=== PATIENT | male | born 1950 | race Caucasian/White ===

== ENCOUNTER → 2016-08-15 | Outpatient (CLI) | payer OTHER ==
[~2016-08-15] MED LIST: ACHD5005; ALPR0.5T7; AML5T; AMLO5TAB2 PO; ATEN50TA PO; ATOR10TA66 PO; ATOR40TA; BACL10TA PO; HYDR-3812 PO; HYDR-3820 PO; IBUPROFEN; LISI-552 PO; MELO15TA39 PO; MELO7.5T; MULT1TAB63; OLME20TA5; OXYC-465; OXYC-465 PO; TRAM50TA2 PO
--- OUTSIDE RECORDS SUMMARY | 2016-08-15 09:59 | XMS REPORT | Continuity of Care Document ---
Author Author [facility] Organization [facility] Address Unknown Phone Unavailable Allergies Active Description Code Type Severity Reaction Onset Reported/Identified Relationship to Patient Clinical Status Yes celecoxib [id number] Drug Allergy Unknown N/A 2006 Medications Problems Date Dx Coded Attending Type Code Diagnosis Diagnosed By 04/19/2010 Ot 562.10 04/19/2010 Ot 569.49 04/19/2010 Ot V10.46 04/19/2010 Ot V45.89 09/16/2014 Ot 185 09/16/2014 Ot 255.9 09/16/2014 Ot 599.70 09/16/2014 Ot 791.9 09/16/2014 Ot V81.5 09/16/2014 Ot 239.4 09/16/2014 Ot V72.83 09/16/2014 Ot 599.70 09/16/2014 Ot 599.70 09/16/2014 Ot 599.84 09/16/2014 Ot 682.1 09/16/2014 Ot 188.9 09/16/2014 Ot 188.9 09/20/2014 Ot 185 09/20/2014 Ot 255.9 09/20/2014 Ot 599.70 09/20/2014 Ot 791.9 09/20/2014 Ot V81.5 09/20/2014 Ot 239.4 09/20/2014 Ot V72.83 09/20/2014 Ot 599.70 09/20/2014 Ot 599.70 09/20/2014 Ot 599.84 09/20/2014 Ot 682.1 09/20/2014 Ot 188.9 09/20/2014 Ot 188.9 03/17/2015 Ot 599.70 03/17/2015 Ot 599.70 03/17/2015 Ot 599.84 03/17/2015 Ot 682.1 03/17/2015 Ot 188.9 03/17/2015 Ot 188.9 10/11/2015 Ot 188.9 MALIG IRVIN BLADDER NOS 10/11/2015 Ot 188.9 MALIG IRVIN BLADDER NOS 10/17/2015 BREN GASPAR, ABIGAIL Carrillo Ot 724.2 LUMBAGO 10/17/2015 ABIGAIL CORREIA MD Ot 729.2 NEURALGIA/NEURITIS NOS 10/17/2015 ABIGAIL CORREIA MD Ot V72.84 EXAM PRE-OPERATIVE NOS 10/20/2015 ABIGAIL CORREIA MD Ot 724.2 LUMBAGO 10/20/2015 ABIGAIL CORREIA MD Ot 729.2 NEURALGIA/NEURITIS NOS 10/20/2015 ABIGAIL CORREIA MD Ot V72.84 EXAM PRE-OPERATIVE NOS 10/20/2015 BLAYNE PANDEY MD Ot M47.816 SPONDYLOSIS W/O MYELOPATHY OR RADICULOPA 10/20/2015 BLAYNE PANDEY MD Ot M51.36 OTHER INTERVERTEBRAL DISC DEGENERATION, 10/20/2015 BLAYNE PANDEY MD Ot Z98.1 ARTHRODESIS STATUS 10/20/2015 BLAYNE PANDEY MD Ot M53.3 SACROCOCCYGEAL DISORDERS, NOT ELSEWHERE 10/20/2015 BLAYNE PANDEY MD Ot M96.1 POSTLAMINECTOMY SYNDROME, NOT ELSEWHERE 10/20/2015 BLAYNE PANDEY MD Ot Z79.899 OTHER PENITENTIARY (CURRENT) DRUG THERAPY 10/29/2015 LANA AJ APRN Ot M48.06 SPINAL STENOSIS, LUMBAR REGION 10/29/2015 LANA AJ APRN Ot S32.029A UNSP FRACTURE OF SECOND LUMBAR VERTEBRA , 10/29/2015 LANA AJ APRN Ot W19.XXXA UNSPECIFIED FALL, INITIAL ENCOUNTER 10/29/2015 LANA AJ APRN Ot Y99.8 OTHER EXTERNAL CAUSE STATUS 10/30/2015 LANA AJ APRN Ot M48.06 SPINAL STENOSIS, LUMBAR REGION 10/30/2015 LANA AJ APRN Ot S32.029A UNSP FRACTURE OF SECOND LUMBAR VERTEBRA , 10/30/2015 LANA AJ APRN Ot W19.XXXA UNSPECIFIED FALL, INITIAL ENCOUNTER 10/30/2015 LANA AJ APRN Ot Y99.8 OTHER EXTERNAL CAUSE STATUS 11/01/2015 BLAYNE PANDEY MD Ot M53.3 SACROCOCCYGEAL DISORDERS, NOT ELSEWHERE 11/01/2015 BLAYNE PANDEY MD Ot M96.1 POSTLAMINECTOMY SYNDROME, NOT ELSEWHERE 11/01/2015 BLAYNE PANDEY MD, Ot Z79.899 OTHER CONTAINER PACKER OPERATOR (CURRENT) DRUG THERAPY 11/07/2015 ABIGAIL CORREIA MD Ot 724.2 LUMBAGO 11/07/2015 ABIGAIL CORREIA MD Ot 729.2 NEURALGIA/NEURITIS NOS 11/07/2015 ABIGAIL CORREIA MD Ot V72.84 EXAM PRE-OPERATIVE NOS 11/07/2015 BLAYNE PANDEY MD Ot M47.816 SPONDYLOSIS W/O MYELOPATHY OR RADICULOPA 11/07/2015 BLAYNE PANDEY MD Ot M51.36 OTHER INTERVERTEBRAL DISC DEGENERATION, 11/07/2015 BLAYNE PANDEY MD, Ot Z98.1 ARTHRODESIS STATUS 11/08/2015 AMBERLY PEACE MD Ot D72.829 ELEVATED WHITE BLOOD CELL COUNT, UNSPECI 11/08/2015 AMBERLY PEACE MD Ot Z79.2 PENITENTIARY (CURRENT) USE OF ANTIBIOTICS 11/14/2015 ABIGAIL CORREIA MD Ot 724.2 LUMBAGO 11/14/2015 ABIGAIL CORREIA MD Ot 729.2 NEURALGIA/NEURITIS NOS 11/14/2015 ABIGAIL CORREIA MD Ot V72.84 EXAM PRE-OPERATIVE NOS 11/14/2015 BLAYNE PANDEY MD, Ot M47.816 SPONDYLOSIS W/O MYELOPATHY OR RADICULOPA 11/14/2015 BLAYNE PANDEY MD Ot M51.36 OTHER INTERVERTEBRAL DISC DEGENERATION, 11/14/2015 BLAYNE PANDEY MD Ot Z98.1 ARTHRODESIS STATUS 11/14/2015 AMBERLY PEACE MD Ot D72.829 ELEVATED WHITE BLOOD CELL COUNT, UNSPECI 11/14/2015 AMBERLY PEACE MD Ot Z79.2 PENITENTIARY (CURRENT) USE OF ANTIBIOTICS 11/22/2015 AMBERLY PEACE MD Ot D72.818 OTHER DECREASED WHITE BLOOD CELL COUNT 11/22/2015 AMBERLY PEACE MD Ot Z79.2 PENITENTIARY (CURRENT) USE OF ANTIBIOTICS 12/01/2015 AMBERLY PEACE MD Ot D72.818 OTHER DECREASED WHITE BLOOD CELL COUNT 12/01/2015 PEACE MD, AMBERLY A Ot Z79.2 CONTAINER PACKER OPERATOR (CURRENT) USE OF ANTIBIOTICS 12/06/2015 AMBERLY PEACE MD A Ot D72.818 OTHER DECREASED WHITE BLOOD CELL COUNT 12/06/2015 AMBERLY PEACE MD A Ot Z79.2 PENITENTIARY (CURRENT) USE OF ANTIBIOTICS 12/20/2015 AMBERLY PEACE MD A Ot D72.818 OTHER DECREASED WHITE BLOOD CELL COUNT 12/20/2015 AMBERLY PEACE MD A Ot Z79.2 PENITENTIARY (CURRENT) USE OF ANTIBIOTICS 12/21/2015 LEDA PEACE MD Ot D72.818 OTHER DECREASED WHITE BLOOD CELL COUNT 12/21/2015 LEDA PEACE MD Ot Z79.2 CONTAINER PACKER OPERATOR (CURRENT) USE OF ANTIBIOTICS 12/24/2015 AMBERLY PEACE MD A Ot D72.818 OTHER DECREASED WHITE BLOOD CELL COUNT 12/24/2015 AMBERLY PEACE MD A Ot Z79.2 PENITENTIARY (CURRENT) USE OF ANTIBIOTICS 12/26/2015 AMBERLY PEACE MD Ot D72.818 OTHER DECREASED WHITE BLOOD CELL COUNT 12/26/2015 AMBERLY PEACE MD A Ot Z79.2 PENITENTIARY (CURRENT) USE OF ANTIBIOTICS 01/02/2016 AMBERLY PEACE MD A Ot D72.818 OTHER DECREASED WHITE BLOOD CELL COUNT 01/02/2016 AMBERLY PEACE MD A Ot Z79.2 CONTAINER PACKER OPERATOR (CURRENT) USE OF ANTIBIOTICS 01/22/2016 ABIGAIL CORREIA MD Ot 724.2 LUMBAGO 01/22/2016 ABIGAIL CORREIA MD Ot 729.2 NEURALGIA/NEURITIS NOS 01/22/2016 ABIGAIL CORREIA MD Ot V72.84 EXAM PRE-OPERATIVE NOS 01/22/2016 BLAYNE PANDEY MD Ot M47.816 SPONDYLOSIS W/O MYELOPATHY OR RADICULOPA 01/22/2016 BLAYNE PANDEY MD Ot M51.36 OTHER INTERVERTEBRAL DISC DEGENERATION, 01/22/2016 BLAYNE PANDEY MD Ot Z98.1 ARTHRODESIS STATUS 01/22/2016 AMBERLY PEACE MD A Ot D72.829 ELEVATED WHITE BLOOD CELL COUNT, UNSPECI 01/22/2016 AMBERLY PEACE MD A Ot Z79.2 CONTAINER PACKER OPERATOR (CURRENT) USE OF ANTIBIOTICS 01/22/2016 AMBERLY PEACE MD A Ot D72.818 OTHER DECREASED WHITE BLOOD CELL COUNT 01/22/2016 AMBERLY PEACE MD A Ot Z79.2 CONTAINER PACKER OPERATOR (CURRENT) USE OF ANTIBIOTICS 01/22/2016 AMBERLY PEACE MD A Ot D72.818 OTHER DECREASED WHITE BLOOD CELL COUNT 01/22/2016 AMBERLY PEACE MD A Ot Z79.2 PENITENTIARY (CURRENT) USE OF ANTIBIOTICS 01/22/2016 AMBERLY PEACE MD A Ot D72.818 OTHER DECREASED WHITE BLOOD CELL COUNT 01/22/2016 AMBERLY PEACE MD A Ot Z79.2 CONTAINER PACKER OPERATOR (CURRENT) USE OF ANTIBIOTICS 01/22/2016 AMBERLY PEACE MD A Ot D72.818 OTHER DECREASED WHITE BLOOD CELL COUNT 01/22/2016 AMBERLY PEACE MD A Ot Z79.2 CONTAINER PACKER OPERATOR (CURRENT) USE OF ANTIBIOTICS 01/22/2016 LEDA PEACE MD Ot D72.818 OTHER DECREASED WHITE BLOOD CELL COUNT 01/22/2016 LEDA PEACE MD Ot Z79.2 CONTAINER PACKER OPERATOR (CURRENT) USE OF ANTIBIOTICS 01/22/2016 AMBERLY PEACE MD A Ot D72.818 OTHER DECREASED WHITE BLOOD CELL COUNT 01/22/2016 AMBERLY PEACE MD Ot Z79.2 PENITENTIARY (CURRENT) USE OF ANTIBIOTICS 01/22/2016 AMBERLY PEACE MD A Ot D72.818 OTHER DECREASED WHITE BLOOD CELL COUNT 01/22/2016 AMBERLY PEACE MD A Ot Z79.2 PENITENTIARY (CURRENT) USE OF ANTIBIOTICS 01/22/2016 AMBERLY PEACE MD A Ot D72.818 OTHER DECREASED WHITE BLOOD CELL COUNT 01/22/2016 AMBERLY PEACE MD A Ot Z79.2 CONTAINER PACKER OPERATOR (CURRENT) USE OF ANTIBIOTICS 01/22/2016 ABIGAIL CORREIA MD Ot 724.2 LUMBAGO 01/22/2016 ABIGAIL CORREIA MD Ot 729.2 NEURALGIA/NEURITIS NOS 01/22/2016 ABIGAIL CORREIA MD Ot V72.84 EXAM PRE-OPERATIVE NOS 01/22/2016 BLAYNE PANDEY MD Ot M47.816 SPONDYLOSIS W/O MYELOPATHY OR RADICULOPA 01/22/2016 BLAYNE PANDEY MD Ot M51.36 OTHER INTERVERTEBRAL DISC DEGENERATION, 01/22/2016 BLAYNE PANDEY MD Ot Z98.1 ARTHRODESIS STATUS 01/22/2016 NATA GASPAR, AMBERLY A Ot D72.829 ELEVATED WHITE BLOOD CELL COUNT, UNSPECI 01/22/2016 AMBERLY PEACE MD A Ot Z79.2 CONTAINER PACKER OPERATOR (CURRENT) USE OF ANTIBIOTICS 01/22/2016 AMBERLY PEACE MD A Ot D72.818 OTHER DECREASED WHITE BLOOD CELL COUNT 01/22/2016 AMBERLY PEACE MD A Ot Z79.2 CONTAINER PACKER OPERATOR (CURRENT) USE OF ANTIBIOTICS 01/22/2016 AMBERLY PEACE MD A Ot D72.818 OTHER DECREASED WHITE BLOOD CELL COUNT 01/22/2016 AMBERLY PEACE MD A Ot Z79.2 CONTAINER PACKER OPERATOR (CURRENT) USE OF ANTIBIOTICS 01/22/2016 AMBERLY PEACE MD A Ot D72.818 OTHER DECREASED WHITE BLOOD CELL COUNT 01/22/2016 AMBERLY PEACE MD A Ot Z79.2 CONTAINER PACKER OPERATOR (CURRENT) USE OF ANTIBIOTICS 01/22/2016 AMBERLY PEACE MD A Ot D72.818 OTHER DECREASED WHITE BLOOD CELL COUNT 01/22/2016 AMBERLY PEACE MD A Ot Z79.2 PENITENTIARY (CURRENT) USE OF ANTIBIOTICS 01/22/2016 LEDA PEACE MD Ot D72.818 OTHER DECREASED WHITE BLOOD CELL COUNT 01/22/2016 LEDA PEACE MD N Ot Z79.2 PENITENTIARY (CURRENT) USE OF ANTIBIOTICS 01/22/2016 AMBERLY PEACE MD A Ot D72.818 OTHER DECREASED WHITE BLOOD CELL COUNT 01/22/2016 AMBERLY PEACE MD A Ot Z79.2 PENITENTIARY (CURRENT) USE OF ANTIBIOTICS 01/22/2016 AMBERLY PEACE MD A Ot D72.818 OTHER DECREASED WHITE BLOOD CELL COUNT 01/22/2016 AMBERLY PEACE MD A Ot Z79.2 PENITENTIARY (CURRENT) USE OF ANTIBIOTICS 01/22/2016 AMBERLY PEACE MD A Ot D72.818 OTHER DECREASED WHITE BLOOD CELL COUNT 01/22/2016 AMBERLY PEACE MD A Ot Z79.2 CONTAINER PACKER OPERATOR (CURRENT) USE OF ANTIBIOTICS 01/22/2016 AMBERLY PEACE MD A Ot D72.818 OTHER DECREASED WHITE BLOOD CELL COUNT 01/22/2016 AMBERLY PEACE MD A Ot Z79.2 CONTAINER PACKER OPERATOR (CURRENT) USE OF ANTIBIOTICS 01/22/2016 AMBERLY PEACE MD A Ot D72.818 OTHER DECREASED WHITE BLOOD CELL COUNT 01/22/2016 AMBERLY PEACE MD, Ot Z79.2 PENITENTIARY (CURRENT) USE OF ANTIBIOTICS 01/22/2016 AMBERLY PEACE MD Ot D72.829 ELEVATED WHITE BLOOD CELL COUNT, UNSPECI 01/22/2016 AMBERLY PEACE MD, Ot Z79.2 PENITENTIARY (CURRENT) USE OF ANTIBIOTICS 01/22/2016 BLAYNE PANDEY MD, Ot M47.816 SPONDYLOSIS W/O MYELOPATHY OR RADICULOPA 01/22/2016 BLAYNE PANDEY MD Ot M51.36 OTHER INTERVERTEBRAL DISC DEGENERATION, 01/22/2016 BLAYNE PANDEY MD, Ot Z98.1 ARTHRODESIS STATUS 04/15/2016 Ot 188.9 MALIG IRVIN BLADDER NOS 08/12/2016 ABIGAIL CORREIA MD Ot 724.2 LUMBAGO 08/12/2016 ABIGAIL CORREIA MD Ot 729.2 NEURALGIA/NEURITIS NOS 08/12/2016 ABIGAIL CORREIA MD Ot V72.84 EXAM PRE-OPERATIVE NOS 08/12/2016 BLAYNE PANDEY MD, Ot M47.816 SPONDYLOSIS W/O MYELOPATHY OR RADICULOPA 08/12/2016 BLAYNE PANDEY MD Ot M51.36 OTHER INTERVERTEBRAL DISC DEGENERATION, 08/12/2016 BLAYNE PANDEY MD, Ot Z98.1 ARTHRODESIS STATUS 08/12/2016 AMBERLY PEACE MD Ot D72.829 ELEVATED WHITE BLOOD CELL COUNT, UNSPECI 08/12/2016 AMBERLY PEACE MD Ot Z79.2 CONTAINER PACKER OPERATOR (CURRENT) USE OF ANTIBIOTICS 08/12/2016 AMBERLY PEACE MD Ot D72.818 OTHER DECREASED WHITE BLOOD CELL COUNT 08/12/2016 AMBERLY PEACE MD Ot Z79.2 CONTAINER PACKER OPERATOR (CURRENT) USE OF ANTIBIOTICS 08/12/2016 AMBERLY PEACE MD Ot D72.818 OTHER DECREASED WHITE BLOOD CELL COUNT 08/12/2016 AMBERLY PEACE MD Ot Z79.2 CONTAINER PACKER OPERATOR (CURRENT) USE OF ANTIBIOTICS 08/12/2016 AMBERLY PEACE MD Ot D72.818 OTHER DECREASED WHITE BLOOD CELL COUNT 08/12/2016 AMBERLY PEACE MD Ot Z79.2 CONTAINER PACKER OPERATOR (CURRENT) USE OF ANTIBIOTICS 08/12/2016 AMBERLY PEACE MD Ot D72.818 OTHER DECREASED WHITE BLOOD CELL COUNT 08/12/2016 AMBERLY PEACE MD Ot Z79.2 PENITENTIARY (CURRENT) USE OF ANTIBIOTICS 08/12/2016 LEDA PEACE MD Ot D72.818 OTHER DECREASED WHITE BLOOD CELL COUNT 08/12/2016 LEDA PEACE MD Ot Z79.2 CONTAINER PACKER OPERATOR (CURRENT) USE OF ANTIBIOTICS 08/12/2016 AMBERLY PEACE MD Ot D72.818 OTHER DECREASED WHITE BLOOD CELL COUNT 08/12/2016 AMBERLY PEACE MD Ot Z79.2 CONTAINER PACKER OPERATOR (CURRENT) USE OF ANTIBIOTICS 08/12/2016 AMBERLY PEACE MD Ot D72.818 OTHER DECREASED WHITE BLOOD CELL COUNT 08/12/2016 AMBERLY PEACE MD Ot Z79.2 CONTAINER PACKER OPERATOR (CURRENT) USE OF ANTIBIOTICS 08/12/2016 AMBERLY PEACE MD Ot D72.818 OTHER DECREASED WHITE BLOOD CELL COUNT 08/12/2016 AMBERLY PEACE MD Ot Z79.2 CONTAINER PACKER OPERATOR (CURRENT) USE OF ANTIBIOTICS Procedures Results Encounters ACCT No. Visit Date/Time Discharge Status Pt. Type Provider Facility Loc./Unit Complaint [id number] 10/29/2015 10:06:00 2015 15:32:00 DIS Emergency LANA AJ APRN [facility] ER BACK PAIN [id number] 10/20/2015 08:18:00 2015 09:28:00 DIS Outpatient BLAYNE PANDEY MD [facility] CARD SACROCOCCYGEAL DISORDER [id number] 11/25/2013 11:23:00 2013 23:59:59 CLS Outpatient ABIGAIL CORREIA MD [facility] CARD PRE OP [id number] 01/04/2013 15:24:00 2012 23:59:59 CLS Outpatient ABIGAIL CORREIA MD [facility] RAD LOW BACK PAIN,RADICULOPATHY [id number] 01/01/2016 11:38:00 ACT Outpatient AMBERLY PEACE MD [facility] LAB IV ABX THERAPY, LEUKOCYTOSIS [id number] 12/25/2015 10:56:00 ACT Outpatient AMBERLY PEACE MD [facility] HH [id number] 12/18/2015 11:58:00 ACT Outpatient NTAA GASPAR, AMBERLY Reyes [facility] IV ABX THERAPY, LEUKECTYOSIS [id number] 12/11/2015 14:37:00 ACT Outpatient NATA GASPAR, LEDA Rodríguez [facility] IV ABX THERAPY;LEUKACYTOSIS [id number] 12/04/2015 10:00:00 ACT Outpatient NATA GASPAR, AMBERLY Reyes [facility] Z79.2,D72.818 [id number] 11/27/2015 14:48:00 PEN Outpatient NATA GASPAR, AMBERLY A [facility] IV ABX THERAPY, LEUKOCYTOSIS [id number] 11/20/2015 14:45:00 ACT Outpatient NATA GASPAR, AMBERLY A [facility] IV ABX THERAPY, LEUKOCYTOSIS [id number] 11/13/2015 14:00:00 ACT Outpatient NATA GASPAR, AMBERLY Reyes [facility] IV ABX THERAPY, [id number] 11/07/2015 11:17:00 ACT Outpatient NATA GASPAR, AMBERLY Reyes [facility] IV ABX TX, LEUKOCYTOSIS [id number] 10/17/2015 09:40:00 ACT Outpatient BLAYNE PANDEY MD [facility] LOW BACK PAIN [id number] 09/16/2014 12:28:00 Document Registration [id number] 09/16/2014 12:28:00 Document Registration [id number] 09/16/2014 12:28:00 Document Registration [id number] 09/16/2014 12:28:00 Document Registration [id number] 04/15/2012 08:48:00 Document Registration [id number] 04/19/2010 12:10:00 Document Registration [id number] 04/03/2010 16:20:00 Document Registration [id number] 03/28/2010 08:03:00 Document Registration [id number] 10/31/2009 13:56:00 Document Registration [id number] 09/01/2009 13:12:00 Document Registration
--- NOTE | 2016-08-15 13:32 | Diagnostic Imaging Report ---
PROCEDURE: MR imaging cervical spine without contrast. TECHNIQUE: Multiplanar, multisequence MR imaging of the cervical spine was performed without contrast. INDICATION: Chronic cervical spine pain. COMPARISON: There are no previous studies available for comparison. FINDINGS: The T2 sagittal images reveal artifact related to orthopedic hardware involving the lower cervical spine. Specifically, there has been an anterior fusion of C5, C6, and C7. The orthopedic hardware seems to be in good position. There is mild narrowing of the thecal sac in the region of the fusion. The AP diameter of the thecal sac at both C5-6 and C6-7 is narrowed to approximately 9.8 mm. There is also narrowing of the neural foramen on the left at both of these levels. The AP diameter of the thecal sac at C7-T1 is 10.1 mm. There is narrowing of the neural foramen on the left at this level also, however. In addition, there is trefoil stenosis at C4-5. The AP diameter of the thecal sac is narrowed to 7.2 mm, and there is mild narrowing of the neural foramen on the right at this level. The remainder of the cervical spine is unremarkable for spinal stenosis or nerve root encroachment. There is no abnormal signal arising from the cord or the vertebral bodies to indicate an acute abnormality. There is no sign of a paraspinal mass. IMPRESSION: 1. There is trefoil stenosis at C4-5. There is also mild narrowing of the neural foramen on the right at this level. 2. There is borderline stenosis at C5-6 and C6-7 in the region of the fusion. There is also narrowing of the neural foramen on the left at these two levels and at C7-T1. 3. There is no sign of an acute bony abnormality or of a cord lesion. Dictated by: Dictated on workstation # [id number]
--- NOTE | 2016-08-15 14:49 | Diagnostic Imaging Report ---
PROCEDURE: MRI lumbar spine. TECHNIQUE: Multiplanar, multisequence MRI of the lumbar spine was performed without contrast. INDICATION: Back pain. FINDINGS: The previous MRI lumbar spine exam performed on 01/04/2013 noted marked spinal canal stenosis at L4-5 and L3-4. The CT lumbar spine exam of 10/29/2015 revealed that in the interval since the MRI exam, the patient had undergone a fusion of L3, L4, and L5. The CT exam also revealed that there was a nondisplaced fracture involving the left pedicle of L2. There were also several calcific densities along the anterior inferior endplate of L2. A few of these calcific densities extended into the region of the thecal sac. This did result in a high-grade stenosis of the neural foramen on the left at L2-3. There was also narrowing of the neural foramen on the right and moderate central stenosis at L2-3. In the interval since the previous exam, the degenerative and post-traumatic changes at the L2-3 level have progressed. Specifically, there is now erosion of the inferior half of the vertebral body of L2, and there is perhaps slightly greater retrolisthesis of L2 with respect to L3. The disc at this level has degenerated, and there is a small fluid collection interposed between the opposing surfaces of L2 and L3. The artifact related to the orthopedic hardware at the L2-L3 level does limit the evaluation of the thecal sac. However, there does appear to be compression of the ventral aspect of the thecal sac due to a combination of degenerative disc and bony disease. There is also narrowing of the neural foramen bilaterally at this level. There is no evidence for spinal stenosis or nerve root encroachment at L3-L4 or L4-L5. There is some deformity of the thecal sac at L5-S1 due to degenerative disc, ligamentous, and bony disease. There does not appear to be any significant central stenosis at this level, but there is fairly severe narrowing of the neural foramen bilaterally at L5-S1. There is no evidence for spinal stenosis or nerve root encroachment at the L1-L2 level. There is no sign of an acute compression fracture. There is no cord lesion identified either. There is no sign of a paraspinal mass. There is a postoperative seroma along the posterior aspect of the thecal sac extending from L2-L3 to L5. IMPRESSION: 1. In the interval since the previous CT lumbar spine exam, the degenerative disc and bony disease at L2-L3 has progressed significantly. There now appears to be compression of the ventral aspect of the thecal sac at L2-3, and there is narrowing of the neural foramen bilaterally. 2. The fusion of L3, L4, and L5 appears stable. There is some deformity of the thecal sac and borderline stenosis at L5-S1, There is also severe narrowing of the neural foramen bilaterally at this level. 3. There is no evidence for acute bony abnormality or for cord lesion. 4. There is a postoperative seroma along the posterior aspect of the thecal sac. Dictated by: Dictated on workstation # [id number]
--- NOTE | 2016-08-15 20:30 | Diagnostic Imaging Report ---
MRI thoracic spine. INDICATION: Back pain and right leg pain. FINDINGS: There are no previous MRI thoracic spine examinations available for comparison. The plain film examination of the chest performed on 10/29/2015 did note compression fractures of the three upper thoracic vertebrae. On the T2 sagittal images of this exam, there are anterior wedge compression deformities of T3, T4, and T5. There is 10-20% loss of height of T2, 40-50% loss of height of T4, and a 10% loss of T5. These injuries appear to be longstanding in nature. There are also very mild anterior compression deformities of T9 and T10. These too appear to be chronic. There is no abnormal signal arising from the osseous structures to suggest bone edema or fracture. There is desiccation of the disc at every level and there is fairly severe narrowing of the disc spaces at T6-T7, T7-T8, and T9-T10. There are also disc bulge centrally At each level from T5-T6 to T9-T10. The discs indent the ventral aspect of the thecal sac. The disc bulge at the T6-T7 level is the most prominent.. This disc flattens the ventral aspect of the thecal sac and narrows the AP diameter to 10.7 mm. There is a similar disc bulge eccentric to the right at T7-T8. The AP diameter of the thecal sac at this level is narrowed to 10.9 mm. There is no other evidence for spinal stenosis. There does not appear to be any significant neuroforaminal narrowing. There is no signal abnormality arising from the cord. There is no evidence for a paraspinal mass. IMPRESSION: 1. There are compression fractures of T3, T4, T5, T9 and T10. These injuries appear to be longstanding in nature. There is no acute bony abnormality identified. 2. There is degenerative disc disease throughout the mid and lower thoracic spine. The degenerative changes are most pronounced at T6-T7 and T7-T8. There is no evidence for central stenosis or nerve root encroachment at any level however. 3. There is no sign of a paraspinal mass. Dictated by: Dictated on workstation # [id number]
== END ==
LOC: RAD 09:54
PROVIDERS: ATTEND Orthopaedic Surgery Orthopaedic Surgery of the Spine
DX: M54.12 Radiculopathy, cervical region (principal); M54.14 Radiculopathy, thoracic region; M54.16 Radiculopathy, lumbar region
CPT/HCPCS: 72141; 72146; 72148

== ENCOUNTER 2016-09-02 09:05 | Outpatient (CLI) | payer OTHER, MEDICARE ==
[~2016-09-02] VITALS: Ht 170.2 cm; Wt 73.7 kg
[~2016-09-02 09:05] MED LIST changes: -ATOR10TA66 PO; -BACL10TA PO; -HYDR-3812 PO; -LISI-552 PO; -OXYC-465 PO; -TRAM50TA2 PO
[2016-09-02 09:13] VITALS: BP 171/93
[2016-09-02] MEDS ORDERED: ATOR10TA66 PO (09:22)
[2016-09-02] MEDS ORDERED: LISI-552 PO (09:22)
[2016-09-02] MEDS ORDERED: TRAM50TA2 PO (09:22)
[2016-09-02 10:01] LABS: BASOPHILS % (AUTO) 0 % (0-10); EOSINOPHILS # (AUTO) 0.1 10^3/uL (0.0-0.3); EOSINOPHILS % (AUTO) 3 % (0-10); LYMPHOCYTES # (AUTO) 0.7 X 10^3 (1.0-4.0); LYMPHOCYTES % (AUTO) 15 % (12-44); MEAN CORPUSCULAR HEMOGLOBIN 33 PG (25-34); MEAN CORPUSCULAR HGB CONC 35 G/DL (32-36); MEAN CORPUSCULAR VOLUME 94 FL (80-99); MONOCYTES # (AUTO) 0.4 X 10^3 (0.0-1.0); MONOCYTES % (AUTO) 8 % (0-12); NEUTROPHILS # (AUTO) 3.6 X 10^3 (1.8-7.8); NEUTROPHILS % (AUTO) 74 % (42-75); PLATELET COUNT 264 10^3/uL (130-400); RED BLOOD COUNT 3.89 10^6/uL (4.35-5.85); RED CELL DISTRIBUTION WIDTH 12.2 % (10.0-14.5); WHITE BLOOD COUNT 4.9 10^3/uL (4.3-11.0)
[2016-09-02 10:33] LABS: ANION GAP 10 MMOL/L (5-14); BLOOD UREA NITROGEN 13 MG/DL (7-18); BUN/CREATININE RATIO 14; CALCIUM 9.5 MG/DL (8.5-10.1); CARBON DIOXIDE 21 MMOL/L (21-32); CHLORIDE 98 MMOL/L (98-107); CREATININE SERUM 0.92 MG/DL (0.60-1.30); GFR ESTIMATED > 60; GLUCOSE 106 MG/DL (70-105); POTASSIUM 4.3 MMOL/L (3.6-5.0); SODIUM 129 MMOL/L (135-145)
== END 2016-09-02 09:45 | disposition home or self-care (01) ==
LOC: PREOP 09:05
PROVIDERS: ATTEND Orthopaedic Surgery Orthopaedic Surgery of the Spine
DX: Z01.812 Encounter for preprocedural laboratory examination (principal); Z11.2 Encounter for screening for other bacterial diseases; M46.46 Discitis, unspecified, lumbar region; M48.06 Spinal stenosis, lumbar region; M40.205 Unspecified kyphosis, thoracolumbar region
CPT/HCPCS: 36415; 80048; 85025; 86850; 86900; 86901; 87081; 93005

== ENCOUNTER 2016-09-16 05:52 | Inpatient (IN) | payer OTHER, MEDICARE ==
[~2016-09-16] VITALS: Ht 170.2 cm; Wt 73.0 kg
[2016-09-16] VITALS (9 sets, daily range): BP systolic 85–165; BP diastolic 58–96
[~2016-09-16 05:52] MED LIST changes: +ATOR10TA66 PO; +LISI-552 PO; +TRAM50TA2 PO
[2016-09-16] MEDS: LACTATED RINGERS 1,000 ML IV PRN ×4 (06:20→15:05)
[2016-09-16] MEDS ORDERED: ceFAZolin 2 GM/50 ML NS 50 ML IV ONE ×3 (06:31→13:00)
[2016-09-16] MEDS ORDERED: ceFAZolin 2 GM/NS 50 ML IV ONE (06:45)
[2016-09-16] MEDS ORDERED: ROCURONIUM 50 MG/5 ML (ZEMURON) VIAL IV ONE ×2 (06:48→09:03)
[2016-09-16] MEDS ORDERED: proPOfol 200 MG/20 ML (DIPRIVAN) VIAL IV ONE (06:48)
[2016-09-16] MEDS ORDERED: fentaNYL INJECTION 250 MCG/5 ML AMP ONE ×2 (06:48→11:19)
[2016-09-16] MEDS ORDERED: LACTATED RINGERS 1,000 ML IV ONE ×5 (06:51→14:50)
[2016-09-16] MEDS ORDERED: MIDAZOLAM 2 MG/2 ML (VERSED) VIAL ONE (06:51)
[2016-09-16] MEDS ORDERED: SEVOFLURANE (ULTANE) 15 ML INHAL SOLN ONE ×6 (06:51→16:01)
[2016-09-16] MEDS ORDERED: LIDOCAINE PF 2% 10 ML (XYLOCAINE) AMP ONE (06:51)
[2016-09-16] MEDS ORDERED: DEXMEDETOMIDINE PRE MIX IV ONE (06:57)
[2016-09-16] MEDS ORDERED: GENTAMICIN 40 MG/ML 2 ML INJ SDV ONE ×3 (07:48→14:18)
[2016-09-16] MEDS ORDERED: TRANEXAMIC ACID 100 MG/ML 10 ML INJECTION IV ONE ×2 (07:54→13:56)
[2016-09-16] MEDS ORDERED: ONDANSETRON 4 MG/2 ML (SDV) Z0FRAN ONE (09:03)
[2016-09-16] MEDS ORDERED: DEXAMETHASONE PF 10 MG/ML (DECADRON) VIAL ONE (09:03)
[2016-09-16] MEDS ORDERED: NS IV 1000 ML 1,000 ML ONE (13:52)
[2016-09-16] MEDS ORDERED: DEXMEDETOMIDINE PRE-MIX (OR) 50 ML IV ONE (14:09)
[2016-09-16] MEDS ORDERED: NS IV 1000 ML 1,000 ML IV SCH ×3 (14:45→22:30)
[2016-09-16] MEDS ORDERED: morphine INJ 10 MG/ML 1ML (SYR OR VIAL) ONE (14:51)
[2016-09-16] MEDS ORDERED: MEPERIDINE (DEMEROL) INJ 50 MG/ML ONE (15:07)
[2016-09-16] MEDS ORDERED: VANCOMYCIN 1000 MG/VIAL ONE (15:14)
--- NOTE | 2016-09-16 15:35 | Diagnostic Imaging Report ---
INDICATION: Low back pain. DISCUSSION: Fluoroscopic support was provided during an intraoperative stabilization of the lumbar spine. Please see the operative report for full detail. FLUOROSCOPY TIME: 120 seconds. IMPRESSION: 1. Intraoperative stabilization of the lumbar spine. Dictated by: Dictated on workstation # [id number]
[2016-09-16] MEDS ORDERED: BSS 15 ML ONE (15:38)
[2016-09-16] MEDS ORDERED: PROMETHAZINE 25 MG (PHENERGAN) TAB PO PRN (15:45)
[2016-09-16] MEDS ORDERED: diphenhydrAMINE 25 MG TAB (BENADRYL) PO PRN (15:45)
[2016-09-16] MEDS ORDERED: DIAZEPAM 5 MG (VALIUM) TABLET PO PRN (15:45)
[2016-09-16] MEDS ORDERED: MILK OF MAGNESIA 400 MG/5 ML 30 ML UDC PO PRN (15:45)
[2016-09-16] MEDS ORDERED: ONDANSETRON 4 MG/2 ML (SDV) Z0FRAN IV PRN (15:45)
[2016-09-16] MEDS: morphine INJ 10 MG/ML 1ML (SYR OR VIAL) IVP PRN ×3 (15:50→22:20)
--- NOTE | 2016-09-16 15:50 | Progress Note-Post Operative ---
Post-Operative Progess Note Surgeon (s)/Supervisor Inspection Department (s) Surgeon JONATHAN BUTCHER MD Supervisor Inspection Department: Irvin Sutton, MARLEEN Pre-Operative Diagnosis Lumbar Kyhposis, Stenosis, Radiculopathy, Discitis Post-Operative Diagnosis Same Post-Op Procedure Note Date of Procedure: Sep 16, 2016 Name of Procedure Performed: L5-S1 ALIF, L2 Corpectomy/Reconstruction, ant T9-Pelvis, PSF with Revision L1-3 Laminectomy. Description of the Procedure: As above Findings of the Procedure Kyphosis, stenosis Anesthesia Type GETA Estimated blood loss (mL): 1350 Specimen(s) collected/removed none JONATHAN BUTCHER MD Sep 16, 2016 3:50 pm
[2016-09-16] MEDS ORDERED: fentaNYL INJECTION 100 MCG/2 ML AMP IVP PRN (16:00)
[2016-09-16] MEDS ORDERED: MEPERIDINE (DEMEROL) INJ 50 MG/ML IVP PRN (16:00)
[2016-09-16] MEDS: HYDROmorphone (DILAUDID) 2 MG/ML VIAL IVP PRN ×4 (16:05→16:35)
--- NOTE | 2016-09-16 17:22 | Consultation-Hospitalist ---
HPI History of Present Illness: HPI/Chief Complaint CC: Medical management in ICU following extensive lumbar spine surgery uncomplicated by Dr Ramsey HPI: This is [id number] s/p extensive lumbar spine surgery by Dr Ramsey following a long course of issues following a prior spine surgery that was complicated by infection and required revision and complex repair by Dr Ramsey. He lost 1350 EBL but otherwise he is feeling well and denies any CP or SOB. I reviewed his home meds and upon further evaluation he stated his PCP is Dr Hui so he will be notified of his admit and will monitor until transfer care is made. BP is 89/ 60 and due to the extensive nature of his surgery and blood loss and receiving 2 units of blood in OR he will be closely monitored in ICU tonight. 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[employer]) Alcohol Use: Regular Use Recreational Drug Use: No Smoking Status: Current Everyday Smoker Type Used: Smokeless Tobacco Physical Abuse Screen: No Sexual Abuse: No Recent Foreign Travel: No Contact w/other who traveled: No Recent Hopitalizations: No Recent Infectious Disease Expo: No Seasonal Allergies Seasonal Allergies: No Surgeries HX Surgeries: Yes (VASECTOMY,PROSTATECTOMY,LEFT THR) Surgeries: Orthopedic Respiratory Hx Respiratory Disorders: No Cardiovascular Hx Cardiovascular Disorders: Yes Cardiac Disorders: High Cholesterol, Hypertension Neurological Hx Neurological Disorders: No Reproductive System Hx Reproductive Disorders: No Sexually Transmitted Disease: No Genitourinary Hx Genitourinary Disorders: No Gastrointestinal Hx Gastrointestinal Disorders: No Musculoskeletal Hx Musculoskeletal Disorders: Yes Musculoskeletal Disorders: Arthritis, Chronic Back Pain Endocrine Hx Endocrine Disorders: No HEENT HX ENT Disorders: No Cancer Cancer: Prostate Psychosocial Hx Psychiatric Problems: No Blood Transfusions Hx Blood Disorders: No Family Medical History Family Hx: Patient reports no known family medical history. Review of Systems Constitutional: see HPI EENTM: no symptoms reported Respiratory: no symptoms reported Cardiovascular: no symptoms reported Gastrointestinal: nausea Genitourinary: no symptoms reported Musculoskeletal: back pain Skin: no symptoms reported Psychiatric/Neurological: Anxiety All Other Systems Reviewed Negative Unless Noted: Yes Physical Exam Physical Exam Vital Signs Vital Sign - Last 12Hours 09/16/16 06:50 Temp 98.9 Pulse 78 Resp 16 B/P (MAP) 165/96 Pulse Ox 98 O2 Delivery Room Air Capillary Refill : General Appearance: No Apparent Distress, WD/WN, Chronically ill Eyes: Bilateral Eye Normal Inspection, Bilateral Eye PERRL HEENT: PERRL/EOMI, Normal ENT Inspection, Pharynx Normal Neck: Full Range of Motion, Normal Inspection, Non Tender, Supple, Carotid Bruit Respiratory: Chest Non Tender, Lungs Clear, Normal Breath Sounds, No Accessory Muscle Use, No Respiratory Distress Cardiovascular: Regular Rate, Rhythm, No Edema, No Gallop, No JVD, No Murmur, Normal Peripheral Pulses Gastrointestinal: Normal Bowel Sounds, No Organomegaly, No Pulsatile Mass, Non Tender, Soft Back: Decreased Range of Motion Extremity: Normal Capillary Refill, Normal Inspection, Normal Range of Motion, Non Tender, No Calf Tenderness, No Pedal Edema Neurologic/Psychiatric: Alert, Oriented x3, No Motor/Sensory Deficits, Normal Mood/Affect Skin: Normal Color, Warm/Dry Lymphatic: No Adenopathy Results Results/Procedures Lab Laboratory Tests 09/16/16 13:15 Assessment/Plan Admission Diagnosis Assessment: s/p lumbar spine surgery extensive in nature uncomplicated by Dr Ramsey Perioperative anemia with hypotension s/p 2 units of blood in OR Smoker Regular ETOH user may be at risk for DT's HTN as outpatient HLP on statin Chronic back pain Assessment and Plan Plan: Monitor and treat pain Monitor blood loss in drain and transfuse as necessary SCD's Monitor BP and maintain IVF Monitor for DT's Will transfer consult to PCP Dr Hui in morning but will be available if needed Clinical Quality Measures DVT/VTE Risk/Contraindication: Risk Factor Score Per Nursin RFS Level Per Nursing on Admit: 4+=Very High ANGI SCHMITT DO Sep 16, 2016 17:22
[2016-09-16] MEDS: NS IV 1000 ML 1,000 ML IV SCH (17:30)
[2016-09-16] MEDS: oxyCODONE/APAP 10/325MG (PERCOCET 10) TABLET PO PRN (17:55)
[2016-09-16] MEDS: ceFAZolin INJECTION 2,000 MG in NS (IVPB) 50 ML IV SCH (20:10)
[2016-09-16 21:30] LABS: BASOPHILS % (AUTO) 0 % (0-10); EOSINOPHILS % (AUTO) 0 % (0-10); LYMPHOCYTES # (AUTO) 0.4 X 10^3 (1.0-4.0); LYMPHOCYTES % (AUTO) 3 % (12-44); MEAN CORPUSCULAR HEMOGLOBIN 32 PG (25-34); MEAN CORPUSCULAR HGB CONC 33 G/DL (32-36); MEAN CORPUSCULAR VOLUME 96 FL (80-99); MEAN PLATELET VOLUME 8.3 FL (7.4-10.4); MONOCYTES # (AUTO) 0.9 X 10^3 (0.0-1.0); MONOCYTES % (AUTO) 8 % (0-12); NEUTROPHILS # (AUTO) 10.6 X 10^3 (1.8-7.8); NEUTROPHILS % (AUTO) 89 % (42-75); PLATELET COUNT 200 10^3/uL (130-400); RED BLOOD COUNT 3.17 10^6/uL (4.35-5.85); RED CELL DISTRIBUTION WIDTH 14.6 % (10.0-14.5); WHITE BLOOD COUNT 11.8 10^3/uL (4.3-11.0)
[2016-09-16 21:50] LABS: ALANINE AMINOTRANSFERASE 28 U/L (0-55); ALBUMIN 3.3 G/DL (3.2-4.5); ANION GAP 13 MMOL/L (5-14); ASPARTATE AMINO TRANSFERASE 41 U/L (5-34); BILIRUBIN,TOTAL 0.6 MG/DL (0.1-1.0); BLOOD UREA NITROGEN 17 MG/DL (7-18); BUN/CREATININE RATIO 13; CALCIUM 7.8 MG/DL (8.5-10.1); CARBON DIOXIDE 14 MMOL/L (21-32); CHLORIDE 105 MMOL/L (98-107); CREATININE SERUM 1.35 MG/DL (0.60-1.30); GFR ESTIMATED 53; GLUCOSE 196 MG/DL (70-105); MAGNESIUM 1.6 MG/DL (1.8-2.4); SODIUM 132 MMOL/L (135-145)
[2016-09-16 21:58] LABS: TROPONIN I < 0.30 NG/ML (<0.30)
[2016-09-16 22:05] LABS: BAND NEUTROPHILS 3 %; BASOPHILS % (MANUAL) 0 %; EOSINOPHILS % (MANUAL) 0 %; LYMPHOCYTES % (MANUAL) 5 %; NEUTROPHILS % (MANUAL) 89 %; POIKILOCYTOSIS SLIGHT
[2016-09-16] MEDS: FAMOTIDINE 20 MG (PEPCID) TABLET PO SCH (22:24)
[2016-09-16] MEDS: SENNOSIDES 8.6 MG (SENOKOT) TAB PO SCH (22:25)
[2016-09-16] MEDS ORDERED: SODIUM BICARB 8.4% 50 MEQ/50 ML (ABBOTT) SYR ONE ×2 (22:33→22:38)
[2016-09-16] MEDS ORDERED: NS IV 500 ML 500 ML ONE (22:35)
[2016-09-16] MEDS ORDERED: MAGNESIUM 1 GM/100 ML IVPB 200 ML IV ONE (22:35)
[2016-09-16] MEDS ORDERED: CALCIUM GLUC. 10% 4.65 MEQ/10 ML VIAL ONE (22:43)
[2016-09-16] MEDS ORDERED: CALCIUM GLUCONATE IV ONE (23:00)
[2016-09-16] MEDS ORDERED: NS IV ONE (23:00)
[2016-09-16] MEDS ORDERED: NS IV 500 ML 500 ML IV SCH (23:00)
[2016-09-16] MEDS ORDERED: SODIUM BICARB 8.4% 50 MEQ/50 ML (ABBOTT) SYR IV ONE (23:00)
[2016-09-16] MEDS ORDERED: NS (IVPB) 100 ML ONE (23:05)
[2016-09-16] MEDS: MAGNESIUM 1 GM/D5W 100 ML IVPB IV SCH (23:26)
[2016-09-17] VITALS (21 sets, daily range): BP systolic 87–132; BP diastolic 54–91
[2016-09-17] MEDS: inSUlin ASPART (NovoLOG) 1 UNIT/0.01 ML (CHARGE PER UNIT) SC SCH ×6 (00:22→20:00)
[2016-09-17] MEDS: MAGNESIUM 1 GM/D5W 100 ML IVPB IV SCH (00:58)
[2016-09-17] MEDS: oxyCODONE/APAP 10/325MG (PERCOCET 10) TABLET PO PRN ×5 (01:05→22:25)
[2016-09-17 02:27] LABS: ANION GAP 13 MMOL/L (5-14); BLOOD UREA NITROGEN 16 MG/DL (7-18); BUN/CREATININE RATIO 15; CALCIUM 7.9 MG/DL (8.5-10.1); CARBON DIOXIDE 16 MMOL/L (21-32); CHLORIDE 103 MMOL/L (98-107); CREATININE SERUM 1.05 MG/DL (0.60-1.30); GFR ESTIMATED > 60; GLUCOSE 169 MG/DL (70-105); MAGNESIUM 2.4 MG/DL (1.8-2.4); POTASSIUM 4.4 MMOL/L (3.6-5.0); SODIUM 132 MMOL/L (135-145)
[2016-09-17] MEDS: morphine INJ 10 MG/ML 1ML (SYR OR VIAL) IVP PRN ×4 (03:39→20:03)
[2016-09-17] MEDS: NS IV 1000 ML 1,000 ML IV SCH ×3 (04:06→13:57)
[2016-09-17] MEDS: ceFAZolin INJECTION 2,000 MG in NS (IVPB) 50 ML IV SCH ×2 (04:07→12:38)
[2016-09-17 04:36] LABS: MEAN PLATELET VOLUME 8.3 FL (7.4-10.4); RED BLOOD COUNT 2.89 10^6/uL (4.35-5.85); RED CELL DISTRIBUTION WIDTH 14.9 % (10.0-14.5); WHITE BLOOD COUNT 12.5 10^3/uL (4.3-11.0)
[2016-09-17 04:59] LABS: ALANINE AMINOTRANSFERASE 26 U/L (0-55); ALBUMIN 3.4 G/DL (3.2-4.5); ANION GAP 11 MMOL/L (5-14); ASPARTATE AMINO TRANSFERASE 48 U/L (5-34); BILIRUBIN,TOTAL 0.5 MG/DL (0.1-1.0); BLOOD UREA NITROGEN 16 MG/DL (7-18); BUN/CREATININE RATIO 15; CALCIUM 7.9 MG/DL (8.5-10.1); CARBON DIOXIDE 17 MMOL/L (21-32); CHLORIDE 103 MMOL/L (98-107); GFR ESTIMATED > 60; GLUCOSE 118 MG/DL (70-105); POTASSIUM 4.4 MMOL/L (3.6-5.0); SODIUM 131 MMOL/L (135-145); TOTAL PROTEIN 5.1 G/DL (6.4-8.2)
[2016-09-17] MEDS: POTASSIUM CL 10MEQ/50ML IVPB 50 ML IV SCH ×2 (05:53→06:00)
[2016-09-17] MEDS: MAGNESIUM 1 GM/100 ML IVPB 100 ML IV SCH ×2 (05:53→06:00)
[2016-09-17] MEDS: KCL 20 MEQ TAB (K-DUR) PO SCH ×2 (05:54→06:00)
--- NOTE | 2016-09-17 06:08 | Progress Note (SOAP) ---
Subjective Subjective/Events-last exam Leg Pain much better No Complaints Objective Exam Vital Signs Date Time Temp Pulse Resp B/P (MAP) Pulse Ox O2 Delivery O2 Flow Rate FiO2 09/17/16 05:00 96 12 130/73 99 Nasal Cannula 2.00 09/17/16 04:00 100 Nasal Cannula 2.00 09/17/16 04:00 98.2 105 10 99/78 100 Nasal Cannula 2.00 09/17/16 03:00 102 15 87/72 100 Nasal Cannula 2.00 09/17/16 02:00 103 15 108/76 99 Nasal Cannula 2.00 09/17/16 01:00 101 09/17/16 01:00 101 17 115/73 100 Nasal Cannula 2.00 09/17/16 00:00 100 Nasal Cannula 2.00 09/17/16 00:00 97.2 90 10 112/71 100 Nasal Cannula 2.00 09/16/16 23:00 84 9 111/69 100 Nasal Cannula 2.00 09/16/16 22:00 91 14 115/62 98 Nasal Cannula 2.00 09/16/16 21:00 75 9 107/69 100 Nasal Cannula 2.00 09/16/16 20:00 100 Nasal Cannula 2.00 09/16/16 20:00 97.0 78 7 89/59 100 Nasal Cannula 2.00 09/16/16 19:00 86 09/16/16 19:00 86 9 85/58 96 Nasal Cannula 2.00 09/16/16 18:00 98 18 91/67 100 Nasal Cannula 2.00 09/16/16 17:00 100 23 90/63 98 Nasal Cannula 2.00 09/16/16 16:35 97.0 09/16/16 16:25 97.0 09/16/16 16:15 97.0 09/16/16 16:05 97.0 09/16/16 16:00 95 7 89/69 96 Nasal Cannula 2.00 09/16/16 15:55 97.0 09/16/16 15:50 97.0 09/16/16 06:50 98.9 78 16 165/96 98 Room Air I & O 09/17/16 07:00 Intake Total 6086 ml Output Total 2740 ml Balance 3346 ml Capillary Refill : General Appearance: No Apparent Distress Neck: Normal Inspection, Supple Respiratory: No Accessory Muscle Use, No Respiratory Distress Cardiovascular: Tachycardia Gastrointestinal: non tender, soft Extremity: Normal Capillary Refill, Normal Inspection Neurologic/Psychiatric: Alert, Oriented x3, No Motor/Sensory Deficits Skin: Normal Color, Warm/Dry Results Lab Laboratory Tests 09/16/16 13:15: Hemoglobin 9.5L, Hematocrit 29L 09/16/16 21:07: Hemoglobin 10.1L, Hematocrit 31L, White Blood Count 11.8H, Red Blood Count 3.17L , Mean Corpuscular Volume 96, Mean Corpuscular Hemoglobin 32, Mean Corpuscular Hemoglobin Concent 33, Red Cell Distribution Width 14.6H, Platelet Count 200, Mean Platelet Volume 8.3, Neutrophils (%) (Auto) 89H, Lymphocytes (%) (Auto) 3L , Monocytes (%) (Auto) 8, Eosinophils (%) (Auto) 0, Basophils (%) (Auto) 0, Neutrophils # (Auto) 10.6H, Lymphocytes # (Auto) 0.4L, Monocytes # (Auto) 0.9, Eosinophils # (Auto) 0.0, Basophils # (Auto) 0.0, Neutrophils % (Manual) 89, Lymphocytes % (Manual) 5, Monocytes % (Manual) 3, Eosinophils % (Manual) 0, Basophils % (Manual) 0, Band Neutrophils 3, Poikilocytosis SLIGHT, Sodium Level 132L, Potassium Level 5.0, Chloride Level 105, Carbon Dioxide Level 14L, Anion Gap 13, Blood Urea Nitrogen 17, Creatinine 1.35H, Estimat Glomerular Filtration Rate 53, BUN/Creatinine Ratio 13, Glucose Level 196H, Lactic Acid Level 3.62*H, Calcium Level 7.8L, Magnesium Level 1.6L, Total Bilirubin 0.6, Aspartate Amino Transf (AST/SGOT) 41H, Alanine Aminotransferase (ALT/SGPT) 28, Alkaline Phosphatase 49, Troponin I < 0.30, B-Type Natriuretic Peptide 46.1, Total Protein 5.0L, Albumin 3.3 09/16/16 23:10: Lactic Acid Level 5.00*H 09/17/16 00:13: Glucometer 180H 09/17/16 02:00: Hemoglobin 9.1L, Sodium Level 132L, Potassium Level 4.4, Chloride Level 103, Carbon Dioxide Level 16L, Anion Gap 13, Blood Urea Nitrogen 16, Creatinine 1.05 , Estimat Glomerular Filtration Rate > 60, BUN/Creatinine Ratio 15, Glucose Level 169H, Lactic Acid Level 3.29*H, Calcium Level 7.9L, Magnesium Level 2.4 09/17/16 04:25: Hemoglobin 9.1L, Sodium Level 131L, Potassium Level 4.4, Chloride Level 103, Carbon Dioxide Level 17L, Anion Gap 11, Blood Urea Nitrogen 16, Creatinine 1.10 , Estimat Glomerular Filtration Rate > 60, BUN/Creatinine Ratio 15, Glucose Level 118H, Lactic Acid Level 2.11*H, Calcium Level 7.9L, White Blood Count 12.5H, Red Blood Count 2.89L, Hematocrit 27L, Mean Corpuscular Volume 95, Mean Corpuscular Hemoglobin 32, Mean Corpuscular Hemoglobin Concent 33, Red Cell Distribution Width 14.9H, Platelet Count 212, Mean Platelet Volume 8.3, Total Bilirubin 0.5, Aspartate Amino Transf (AST/SGOT) 48H, Alanine Aminotransferase ( ALT/SGPT) 26, Alkaline Phosphatase 46, Total Protein 5.1L, Albumin 3.4 09/17/16 04:50: Glucometer 106 Assessment/Plan Assessment/Plan Assess & Plan/Chief Complaint 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
[2016-09-17] MEDS: MULTIVIT W/MINERALS TAB (THERAGRAN M) PO SCH (06:35)
--- NOTE | 2016-09-17 07:46 | Progress Note (SOAP) ---
Subjective Subjective/Events-last exam Patient seen yesterday by hospitalist after having extensive surgery by orthopedics for his ongoing low back pain. He required 2 units of blood and at the time was hypotensive. He is followed outpatient through my clinic and is typically treated for hypertension as well as hyperlipidemia. He is on 3 different antihypertensive medications. At this point he is without any elevated blood pressure and actually has a few that are normotensive. This morning he states he feels fine and has no shortness of breath. Objective Exam Vital Signs Date Time Temp Pulse Resp B/P (MAP) Pulse Ox O2 Delivery O2 Flow Rate FiO2 09/17/16 06:00 102 9 129/91 90 Nasal Cannula 2.00 09/17/16 05:00 96 12 130/73 99 Nasal Cannula 2.00 09/17/16 04:00 100 Nasal Cannula 2.00 09/17/16 04:00 98.2 105 10 99/78 100 Nasal Cannula 2.00 09/17/16 03:00 102 15 87/72 100 Nasal Cannula 2.00 09/17/16 02:00 103 15 108/76 99 Nasal Cannula 2.00 09/17/16 01:00 101 09/17/16 01:00 101 17 115/73 100 Nasal Cannula 2.00 09/17/16 00:00 100 Nasal Cannula 2.00 09/17/16 00:00 97.2 90 10 112/71 100 Nasal Cannula 2.00 09/16/16 23:00 84 9 111/69 100 Nasal Cannula 2.00 09/16/16 22:00 91 14 115/62 98 Nasal Cannula 2.00 09/16/16 21:00 75 9 107/69 100 Nasal Cannula 2.00 09/16/16 20:00 100 Nasal Cannula 2.00 09/16/16 20:00 97.0 78 7 89/59 100 Nasal Cannula 2.00 09/16/16 19:00 86 09/16/16 19:00 86 9 85/58 96 Nasal Cannula 2.00 09/16/16 18:00 98 18 91/67 100 Nasal Cannula 2.00 09/16/16 17:00 100 23 90/63 98 Nasal Cannula 2.00 09/16/16 16:35 97.0 09/16/16 16:25 97.0 09/16/16 16:15 97.0 09/16/16 16:05 97.0 09/16/16 16:00 95 7 89/69 96 Nasal Cannula 2.00 09/16/16 15:55 97.0 09/16/16 15:50 97.0 I & O 09/17/16 07:00 Intake Total 6161 ml Output Total 2805 ml Balance 3356 ml Capillary Refill : General Appearance: No Apparent Distress Neck: Supple Respiratory: Lungs Clear Cardiovascular: Regular Rate, Rhythm Gastrointestinal: soft Results Lab Laboratory Tests 09/16/16 13:15: Hemoglobin 9.5L, Hematocrit 29L 09/16/16 21:07: Hemoglobin 10.1L, Hematocrit 31L, White Blood Count 11.8H, Red Blood Count 3.17L , Mean Corpuscular Volume 96, Mean Corpuscular Hemoglobin 32, Mean Corpuscular Hemoglobin Concent 33, Red Cell Distribution Width 14.6H, Platelet Count 200, Mean Platelet Volume 8.3, Neutrophils (%) (Auto) 89H, Lymphocytes (%) (Auto) 3L , Monocytes (%) (Auto) 8, Eosinophils (%) (Auto) 0, Basophils (%) (Auto) 0, Neutrophils # (Auto) 10.6H, Lymphocytes # (Auto) 0.4L, Monocytes # (Auto) 0.9, Eosinophils # (Auto) 0.0, Basophils # (Auto) 0.0, Neutrophils % (Manual) 89, Lymphocytes % (Manual) 5, Monocytes % (Manual) 3, Eosinophils % (Manual) 0, Basophils % (Manual) 0, Band Neutrophils 3, Poikilocytosis SLIGHT, Sodium Level 132L, Potassium Level 5.0, Chloride Level 105, Carbon Dioxide Level 14L, Anion Gap 13, Blood Urea Nitrogen 17, Creatinine 1.35H, Estimat Glomerular Filtration Rate 53, BUN/Creatinine Ratio 13, Glucose Level 196H, Lactic Acid Level 3.62*H, Calcium Level 7.8L, Magnesium Level 1.6L, Total Bilirubin 0.6, Aspartate Amino Transf (AST/SGOT) 41H, Alanine Aminotransferase (ALT/SGPT) 28, Alkaline Phosphatase 49, Troponin I < 0.30, B-Type Natriuretic Peptide 46.1, Total Protein 5.0L, Albumin 3.3 09/16/16 23:10: Lactic Acid Level 5.00*H 09/17/16 00:13: Glucometer 180H 09/17/16 02:00: Hemoglobin 9.1L, Sodium Level 132L, Potassium Level 4.4, Chloride Level 103, Carbon Dioxide Level 16L, Anion Gap 13, Blood Urea Nitrogen 16, Creatinine 1.05 , Estimat Glomerular Filtration Rate > 60, BUN/Creatinine Ratio 15, Glucose Level 169H, Lactic Acid Level 3.29*H, Calcium Level 7.9L, Magnesium Level 2.4 09/17/16 04:25: Hemoglobin 9.1L, Sodium Level 131L, Potassium Level 4.4, Chloride Level 103, Carbon Dioxide Level 17L, Anion Gap 11, Blood Urea Nitrogen 16, Creatinine 1.10 , Estimat Glomerular Filtration Rate > 60, BUN/Creatinine Ratio 15, Glucose Level 118H, Lactic Acid Level 2.11*H, Calcium Level 7.9L, White Blood Count 12.5H, Red Blood Count 2.89L, Hematocrit 27L, Mean Corpuscular Volume 95, Mean Corpuscular Hemoglobin 32, Mean Corpuscular Hemoglobin Concent 33, Red Cell Distribution Width 14.9H, Platelet Count 212, Mean Platelet Volume 8.3, Total Bilirubin 0.5, Aspartate Amino Transf (AST/SGOT) 48H, Alanine Aminotransferase ( ALT/SGPT) 26, Alkaline Phosphatase 46, Total Protein 5.1L, Albumin 3.4 09/17/16 04:50: Glucometer 106 Assessment/Plan Assessment/Plan Assess & Plan/Chief Complaint 1. Status post lumbar spine surgery day number 2 -Being followed by orthopedics Dr. Ramsey -Patient to remain in ICU today. 2. Anemia perioperative with 2 units of blood received -Hemoglobin today 9.1 3. Hypertension -We will add on blood pressure medications as condition improves 4. Hyperlipidemia 5. Tobaccoism Final Diagnosis 1. Status post lumbar spine surgery day number 2 2. Anemia perioperative with 2 units of blood received 3. Hypertension 4. Hyperlipidemia 5. Tobaccoism Clinical Quality Measures DVT/VTE Risk/Contraindication: Risk Factor Score Per Nursin RFS Level Per Nursing on Admit: 4+=Very High ABIGAIL CORREIA MD Sep 17, 2016 07:46
[2016-09-17] MEDS: FAMOTIDINE 20 MG (PEPCID) TABLET PO SCH ×2 (08:37→20:53)
[2016-09-17] MEDS: SENNOSIDES 8.6 MG (SENOKOT) TAB PO SCH ×2 (08:37→20:53)
--- NOTE | 2016-09-17 09:43 | Physical Therapy Evaluation ---
PT Evaluation-General Medical Diagnosis Admission Date Sep 16, 2016 at 05:52 Medical Diagnosis: lumbar stenosis Onset Date: Sep 16, 2016 Therapy Diagnosis Therapy Diagnosis: debility Height/Weight Height (Feet): 5 Height (Inches): 7.00 Weight (Pounds): 175 Weight (Ounces): 0.0 Precautions Precautions/Isolations: Standard Precautions Referral Physician: Roxy Reason for Referral: Evaluation/Treatment Medical History Pertinent Medical History: Arthritis, HTN, Smoking Additional Medical History prior lumbar surgery 2013 Current History s/p L5-S1 ALIF; L2 Corpectomy/reconstruction, and T9-pelvis, PSF with revision, L1-3 laminectomy Reviewed History: Yes Social History Home: Single Level Current Living Status: Spouse Prior/Core FIM Prior Level of Function Functional George Measure 0=Not Assessed/NA 4=Minimal Assistance 1=Total Assistance 5=Supervision or Setup 2=Maximal Assistance 6=Modified George 3=Moderate Assistance 7=Complete George Bed Mobility: 6 Transfers (B,C,W/C) (FIM): 6 Gait: 6 uses FWW prior PT Evaluation-Current Subjective Patient agrees to PT. Patient rates back pain 8/10 with morphine issued IV. Pain Numeric Pain Scale: 8 Location: Medial, Lower Location Body Site: Back Pain Description: Acute Objective Patient Orientation: Normal For Age Problem Solving: Good Attachments: Drains, Martins Catheter, IV ROM/Strength ROM Lower Extremities bilateral LE WFL Strenght Lower Extremities right knee flexion/extension 4/5; hip flexion 4/5, ankle dorsi/plantarflexion 4/ 5 left knee flexion/extension 4/5; hip flexion 4/5; ankle dorsi/plantarflexion 4/5 Integumentary/Posture Integumentary refer to nursing notes Bladder Incontinence: Martins Cath Posture slightly kyphotic Neuromuscular (Tone, Coordination, Reflexes) grossly intact Sensory Vision: Wears Glasses Hearing: Functional Sensation Right Lower Extremit: Impaired Sensation Left Lower Extremity: Impaired Transfers Functional George Measure 0=Not Assessed/NA 4=Minimal Assistance 1=Total Assistance 5=Supervision or Setup 2=Maximal Assistance 6=Modified George 3=Moderate Assistance 7=Complete George Transfers (B, C, W/C) (FIM): 4 Scootin Rollin Supine to/from Sit: 4 Sit to/from Stand: 5 Gait Mode of Locomotion: Walk Anticipated Mode of Locomotion: Walk Gait (FIM): 5 Distance (FIM): 3=150 ft Distance: 200' Gait Level of Assist: 5 Gait Persons Needed: 1 Gait Assistive Device: FWW Comments/Gait Description safe and functional with FWW; noted extended UE's with correction after verbal instruction Balance Sitting Static: Normal Sitting Dynamic: Normal Standing Static: Normal Standing Dynamic: Normal Assessment/Needs 65 y.o. male, will benefit from skilled PT to address functional strength and mobility to improve current LOF and to safely return to home with spouse at [facility]. Rehab Potential: Good PT [facility] Goals Information And Data Architect Analyst Goals PT [facility] Goals Time Frame: Sep 24, 2016 Transfers (B,C,W/C) (FIM): 6 Gait (FIM): 6 Gait distance (FIM): 3=150 ft Gait Level of Assist: 6 Gait Assistive Device: FWW PT Plan Treatment/Plan Treatment Plan: Continue Plan of Care Treatment Plan: Bed Mobility, Education, Functional Activity Alysia, Functional Strength, Gait, Safety, Therapeutic Exercise, Transfers Treatment Duration: Sep 24, 2016 # of days/week 6 Visits Per Week: 6-11 Pt/Family Agrees w/Plan: Yes Safety Risks/Education Patient Education: Transfer Techniques (bed mobility barrel roll) Discharge Recommendations Therapy D/C Recommendations: Home w/ Family Support Time/GCodes Time In: 820 Time Out: 850 Total Billed Treatment Time: 30 [facility] STEVEN[facility] Sep 17, 2016 09:43
--- NOTE | 2016-09-17 10:22 | OPERATIVE REPORT ---
PROCEDURE PHYSICIAN: JONATHAN BUTCHER DATE OF PROCEDURE: 09/16/2016 PREOPERATIVE DIAGNOSIS: 1. Postlaminectomy syndrome. 2. Lumbar stenosis, high grade severe. 3. Lumbar radiculopathy. 4. Neurogenic claudication. 5. Lumbar discitis with post discitis kyphosis. 6. Retrolisthesis instability. POSTOPERATIVE DIAGNOSIS: 1. Postlaminectomy syndrome. 2. Lumbar stenosis, high grade severe. 3. Lumbar radiculopathy. 4. Neurogenic claudication. 5. Lumbar discitis with post discitis kyphosis. 6. Retrolisthesis instability. PROCEDURE PERFORMED: 1. L5-S1 anterior lumbar interbody fusion. 2. L5-S1 interbody cage instrumentation with integral fixation. 3. Allograft for spine surgery morselized. 4. Autograph for spine surgery morselized. 5. L2 corpectomy with decompression of the 1-2 and 2-3 disc spaces and the L2 vertebral body, L2 corpectomy cage reconstruction. 6. Revision L2-3 laminectomy, and bilateral medial facetectomy, foraminotomy. 7. Revision L1-2 laminectomy and medial facetectomy, and foraminotomy. 8. T9-10 posterior spinal fusion. 9. T10-11 posterior spinal fusion. 10. T11-12 posterior spinal fusion. 11. T12-L1 posterior spinal fusion. 12. L1-2 posterior spinal fusion. 13. L2-3 posterior spinal fusion. 14. L5-S1 posterior spinal fusion. 15. Removal of L3-4, 5 instrumentation. 16. T-9 thoracic 9 to the pelvis posterior segmental pedicle screw instrumentation with pelvic fixation at the caudal end of the construct. DATE AND TIME OF SURGERY: Please see anesthesia record. IMPLANTS USED: K2M [place] peek cage, K2M corpectomy cage, K2M Nereyda posterior spinal instrumentation, Vesuvius bone graft, infuse bone graft. SURGEON: Roxy SOFTWARE DEVELOPMENT SPECIALIST: SIRISHA Fields. Role of obstetric assistant: Aid in retraction of the procedure, aid in implantation of instrumentation and wound closure. ANESTHESIA: General endotracheal. ESTIMATED BLOOD LOSS: 1350 mL. IV FLUIDS: 2 units of blood and 4200 cc Crystalloids ANTIBIOTICS: Ancef multiple doses COMPLICATIONS: None. INDICATION FOR THE PROCEDURE: Mr. Berman is a 65-year-old male previous spinal fusion with subsequent discitis developed, treated post diskitis stenosis, which retrolisthesis pain, desires operative treatment. DESCRIPTION OF PROCEDURE: The patient was taken to the preoperative holding area and brought back to the operating suite and after adequate induction introduction and preoperative antibiotics, the patient was placed supine on the operative table. Standard intraoperative neurophysiologic monitoring carried out by means real-time continuous high quality bidirectional remote audio and visual communication to both the assessment technician and surgeon by Dr. Cardenas, SSEPs, EMGs, TC, MEPs were carried out throughout the procedure. The PDS stable. The patient was placed prone initially and the abdomen was prepped and draped, and left-sided retroperitoneal exposure of 5-1 level was carried out without difficulty. Once the disc was confirmed it was excised and discectomy was carried out. Trial spacers were utilized and the appropriate sized peek spacer filled with allograft bone and infuse was impacted in position with good fit achieved. Screws were then placed through the cage for anterior fixation purposes. Small amount of infusion was also placed anteriorly for sentinel grafting purposes. The wound was then closed in layers. The patient placed in lateral decubitus position, left side up. Standard transpsoas approach to 1-2 and 2-3 disc spaces was carried out. Corpectomy retractor from the K2M set was utilized and the L2 vertebral body was visualized. Psoas was split. Neural structures were meticulously visualized to 4 and then corpectomy was carried out. Sufficient, corpectomy to allow placement of the cage was performed and then appropriate sized cage was filled with autograft bone and distracted into position with good fit achieved. Once this was performed, retractor were removed, hemostasis was achieved. Deep drain was placed. The wound was closed in layers. The patient turned prone on the Mc table. Careful padding to the lower extremities, sterile prep and drape posterior upper spine. Incision made from T9 to the pelvis. Full exposure, previous hardware was removed. L1-2 and 2-3 laminectomy, through the revision scar was performed. Bilateral and medial facetectomies and sufficient, decompression was achieved. At this point, instrumentation from T9 to the pelvis segmentally only skipping the L2 level was performed. Pelvic screws were placed bilaterally. Final imaging was obtained. Position Rods were applied, final tightening was performed. High speed bur was used to corticate from T9 all the way to the pelvis and autograft and allograft bone was packed posterolaterally for the fusion portion the procedure. Deep drain was placed. The wound was closed in layers. The patient transferred to the recovery room in stable condition having tolerated the procedure well. Job ID: [id number] Dictated Date: 09/16/2016 15:57:17 Park Warden Date: 09/17/2016 09:45:37 / vishnu GAVIN
--- NOTE | 2016-09-17 12:34 | Anesthesia-General Post-Op ---
General Patient Condition Mental Status/LOC: Same as Preop Cardiovascular: Satisfactory Nausea/Vomiting: Absent Respiratory: Satisfactory Pain: Controlled Complications: Absent Post Op Complications Complications None Follow Up Care/Instructions Patient Instructions None needed. Anesthesia/Patient Condition Patient Condition Patient is doing well, no complaints, stable vital signs, no apparent adverse anesthesia problems. No complications reported per nursing. KEN MENJIVAR CRNA Sep 17, 2016 12:33
[2016-09-17] MEDS ORDERED: HYDR-3812 PO (13:17)
--- NOTE | 2016-09-17 14:24 | Occupational Therapy Eval ---
OT Evaluation-General/PLF Medical Diagnosis Admission Date Sep 16, 2016 at 05:52 Medical Diagnosis: lumbar stenosis Onset Date: Sep 16, 2016 Therapy Diagnosis Therapy Diagnosis: decreased self care, decreased functional mobility, weakness Height/Weight Height (Feet): 5 Height (Inches): 7.00 Weight (Pounds): 175 Weight (Ounces): 0.0 Precautions Precautions/Isolations: Standard Precautions Safety Interventions: Reorient-PRN Weight Bear Status back brace when out of bed Referral Physician: Roxy Referral Reason: Evaluation/Treatment Medical History Pertinent Medical History: Arthritis, HTN, Smoking Additional Medical History Prior spine surgery with infection and requiring revision and repair. L THR, chronic back pain, regular ETOH user Current History Admitted for revision and repair surgery. Social History Home: Single Level Current Living Status: Spouse ADL-Prior Level of Function ADL PLOF Comments Pt reported he was independent with all of hsi basic ADLs prior to surgery. He is disabled but worked delivering bakery products. He still drives. DME/Equipment: Bath Chair, Shower, Shower Hose Trucksmith, Tall Toilet, Toilet/ Riser DME/Equipment Comments Bathroom is accessible Occupation: disabled Drive Self: Yes OT Current Status Subjective Pt seen in room, up in bed, agreeable to OT. Pain rated 2/10 as long as he isn' t moving Appearance Alert, cooperative Mental Status/Objective Patient Orientation: Person, Place, Situation Attachments: Drains, Martins Catheter, IV, Telemetry Current Glasses/Contacts: Yes Hand Dominance: Right Upper Extremity ROM Grossly WFL bilat (L shoulder sore after surgery) Upper Extremity Strength Grossly 4/5 (limited by discomfort L shoulder) Edema: No UE edema noted ADL-Treatment ADL-Current Pt transferred min assist with PT this am and walker SBA, FWW. He has not been up for many ADLs since surgery but anticipated discharge to surgical floor tomorrow. He has dressing stick, straightedge worker, sock aid from total hip surgery and is agreeable to revisit these to help with ADLs once he has his back brace on. Functional [place] Measure 0=Not Assessed/NA 4=Minimal Assistance 1=Total Assistance 5=Supervision or Setup 2=Maximal Assistance 6=Modified [place] 3=Moderate Assistance 7=Complete IndependenceIRFPAI Quality Coding Scale 6 Independent with activity with or without an assistive device 5 Patient requires set up or clean up by helper. Patient completes activity by themselves 4 Supervision or touching assist (CGA). [place] provide cues , steadying assist 3 The helper provides less than half the effort to complete the activity 2 The helper provides more than half the effort to complete the activity 1 Dependent. The helper does all the effort to complete an activity 7 Patient refused to complete or attempt activity 9 The patient did not perform the activity before the current illness or injury 88 Not attempted due to Medical conditions or safety concerns Education OT Patient Education: Purpose of tx/functional activities, Rehab process Teaching Recipient: Patient Response to Teaching: Verbalize Understanding OT Detention Goals Detention Goals Time Frame: Sep 24, 2016 Eating (FIM): 6 Grooming(FIM): 6 Bathing(FIM): 6 Upper Body Dressing(FIM): 6 Lower Body Dressing(FIM): 6 Toileting(FIM): 6 Toilet/Commode Transfer(FIM): 6 Shower Transfer(FIM): 6 Additional Goals: 2-Verbalize Understanding, 3-ImproveStrength/Alysia 1=Demonstrate adherence to instructed precautions during ADL tasks. 2=Patient will verbalize/demonstrate understanding of assistive devices/ modifications for ADL. 3=Patient will improve strength/tolerance for activity to enable patient to perform ADL's. OT Education/Plan Problem List/Assessment Assessment: Decreased Activ Tolerance, Decreased UE Strength, Dependent Transfers, Impaired Self-Care Skills Pt would benefit from skilled OT to increase his independence in basic self care to allow him to return home safely with his . Discharge Recommendations Plan/Recommendations: Continue POC Therapy D/C Recommendations: Occupational Therapy Home Care Target Placement home Friday Treatment Plan/Plan of Care Treatment,Training & Education: Yes Patient would benefit from OT for education, treatment and training to promote independence in ADL's, mobility, safety and/or upper extremity function for ADL' s. Plan of Care: ADL Retraining, Functional Mobility, UE Funct Exercise/Act, UE Neuromus Re-Ed/Coord Treatment Duration: Sep 24, 2016 # of days/week 5 Visits Per Week: 5 Agreement: Yes Rehab Potential: Good Time/GCodes Start Time: 14:00 Stop Time: 14:14 Total Time Billed (hr/min): 14 Billed Treatment Time visit, 14 minutes evaluation moderate intensity NESTOR BLAKE OT Sep 17, 2016 14:24
--- NOTE | 2016-09-17 15:33 | Physical Therapy Daily Note ---
PT Daily Note-Current Subjective Patient in bed pre tx, agrees to PT, pleasant and motivated but also very anxious. Rates pain at 7-8/10. Heart rate is high at 125-130bpm. Appearance Patient BTB post tx with nurse call, phone, tray, all needs met. HR stayed at 130bpm. Mental Status Patient Orientation: Normal For Age Attachments: Martins Catheter, IV TLSO Transfers Functional [place] Measure 0=Not Assessed/NA 4=Minimal Assistance 1=Total Assistance 5=Supervision or Setup 2=Maximal Assistance 6=Modified [place] 3=Moderate Assistance 7=Complete IndependenceIRFPAI Quality Coding Scale 6 Independent with activity with or without an assistive device 5 Patient requires set up or clean up by helper. Patient completes activity by themselves 4 Supervision or touching assist (CGA). [place] provide cues , steadying assist 3 The helper provides less than half the effort to complete the activity 2 The helper provides more than half the effort to complete the activity 1 Dependent. The helper does all the effort to complete an activity 7 Patient refused to complete or attempt activity 9 The patient did not perform the activity before the current illness or injury 88 Not attempted due to Medical conditions or safety concerns Transfers (B, C, W/C) (FIM): 5 Scootin Rollin Supine to/from Sit: 5 Sit to/from Stand: 5 patient needed education on how to log roll Gait Training Gait (FIM): 5 Distance: 300' Gait Level of Assist: 5 Gait Persons Needed: 1 Gait Assistive Device: FWW Patient needs cues to keep walker closer to him. Treatments bed mobility and transfers, ambulation Assessment Current Status: Fair Progress improved ambulation and endurance PT Sterilisation Technician Goals Jail Goals PT Sterilisation Technician Goals Time Frame: Sep 24, 2016 Transfers (B,C,W/C) (FIM): 6 Gait (FIM): 6 Gait distance (FIM): 3=150 ft Gait Level of Assist: 6 Gait Assistive Device: FWW PT Plan Problem List Problem List: Activity Tolerance, Functional Strength, Safety, Balance, Gait, Transfer, Bed Mobility Treatment/Plan Treatment Plan: Continue Plan of Care Treatment Plan: Bed Mobility, Education, Functional Activity Alysia, Functional Strength, Gait, Safety, Therapeutic Exercise, Transfers Treatment Duration: Sep 24, 2016 Visits Per Week: 6-11 Safety Risks/Education Patient Education: Gait Training, Transfer Techniques, Reviewed Precautions, Correct Positioning, Safety Issues Teaching Recipient: Patient Teaching Methods: Demonstration, Discussion Response to Teaching: Reinforcement Needed Time/GCodes Time In: 1510 Time Out: 1525 Total Billed Treatment Time: 15 Total Billed Treatment 1 visit GT 15 min BUBBA ESTEVES PT Sep 17, 2016 15:33
[2016-09-17 23:04] LABS: CALCIUM IONIZED 1.2 mmol/L (1.16-1.32); CORRECTED IONIZED CALCIUM 1.12 mmol/L (1.16-1.32)
[2016-09-17 23:11] LABS: CALCIUM IONIZED 1.12 mmol/L (1.16-1.32); CORRECTED IONIZED CALCIUM 1.04 mmol/L (1.16-1.32)
[2016-09-18] VITALS (15 sets, daily range): BP systolic 108–151; BP diastolic 62–89
[2016-09-18] MEDS: NS IV 1000 ML 1,000 ML IV SCH ×2 (00:05→18:03)
[2016-09-18] MEDS: morphine INJ 10 MG/ML 1ML (SYR OR VIAL) IVP PRN ×4 (00:12→20:14)
[2016-09-18] MEDS: oxyCODONE/APAP 10/325MG (PERCOCET 10) TABLET PO PRN ×4 (03:14→22:48)
[2016-09-18 03:59] LABS: MEAN PLATELET VOLUME 8.6 FL (7.4-10.4); RED BLOOD COUNT 2.45 10^6/uL (4.35-5.85); RED CELL DISTRIBUTION WIDTH 14.4 % (10.0-14.5); WHITE BLOOD COUNT 10.8 10^3/uL (4.3-11.0)
[2016-09-18] MEDS: inSUlin ASPART (NovoLOG) 1 UNIT/0.01 ML (CHARGE PER UNIT) SC SCH ×2 (04:00)
[2016-09-18 04:24] LABS: ALANINE AMINOTRANSFERASE 21 U/L (0-55); ALBUMIN 3.1 G/DL (3.2-4.5); ANION GAP 7 MMOL/L (5-14); ASPARTATE AMINO TRANSFERASE 59 U/L (5-34); BILIRUBIN,TOTAL 0.3 MG/DL (0.1-1.0); BLOOD UREA NITROGEN 12 MG/DL (7-18); BUN/CREATININE RATIO 14; CALCIUM 8.1 MG/DL (8.5-10.1); CARBON DIOXIDE 21 MMOL/L (21-32); CHLORIDE 103 MMOL/L (98-107); CREATININE SERUM 0.85 MG/DL (0.60-1.30); GFR ESTIMATED > 60; GLUCOSE 101 MG/DL (70-105); MAGNESIUM 2.1 MG/DL (1.8-2.4); POTASSIUM 4.3 MMOL/L (3.6-5.0); SODIUM 131 MMOL/L (135-145); TOTAL PROTEIN 5.1 G/DL (6.4-8.2)
[2016-09-18] MEDS ORDERED: NS IV 500 ML 500 ML IV SCH (05:50)
--- NOTE | 2016-09-18 06:02 | Progress Note (SOAP) ---
Subjective Subjective/Events-last exam POD #2, S/P L5-S1 ALIF, L2 corpectomy, L2-3 laminectomy, T9-S2 PSF VSS, with persistent tachycardia No complaints Review of Systems General: No Chills Pulmonary: No Dyspnea, No Cough Cardiovascular: No: Chest Pain Musculoskeletal: back pain, No: leg pain Neurological: No: Numbness, Weakness Objective Exam Vital Signs Date Time Temp Pulse Resp B/P (MAP) Pulse Ox O2 Delivery O2 Flow Rate FiO2 09/18/16 04:00 93 Room Air 09/18/16 03:00 114 20 109/72 93 Room Air 09/18/16 02:00 134 20 121/73 91 Room Air 09/18/16 01:00 117 9 134/75 93 Room Air 09/18/16 01:00 117 09/18/16 00:00 96 Room Air 09/18/16 00:00 99.5 124 23 118/69 89 Room Air 09/17/16 22:00 115 13 132/77 93 Room Air 09/17/16 21:00 118 12 119/73 97 Room Air 09/17/16 20:00 93 Room Air 09/17/16 20:00 98.2 118 19 128/68 91 Room Air 09/17/16 19:00 122 09/17/16 19:00 115 16 113/70 91 Room Air 09/17/16 18:00 118 19 98/61 93 Room Air 09/17/16 17:00 122 28 103/90 Room Air 09/17/16 16:06 98.3 09/17/16 16:00 112 9 122/71 94 Room Air 09/17/16 16:00 100 Room Air 09/17/16 15:00 113 17 116/71 92 Room Air 09/17/16 14:00 112 10 110/63 95 Room Air 09/17/16 13:00 112 09/17/16 13:00 112 9 122/69 Room Air 09/17/16 12:30 99.1 09/17/16 12:00 107 11 109/54 92 Room Air 09/17/16 12:00 100 Room Air 09/17/16 11:00 112 7 119/63 92 Room Air 09/17/16 08:00 100 Room Air 09/17/16 08:00 96 11 110/91 100 Room Air 09/17/16 08:00 98.3 Room Air 09/17/16 07:00 108 12 115/75 94 Nasal Cannula 2.00 09/17/16 07:00 103 09/17/16 06:00 102 9 129/91 90 Nasal Cannula 2.00 I & O 09/18/16 07:00 Intake Total 3045 ml Output Total 2465 ml Balance 580 ml Capillary Refill : General Appearance: No Apparent Distress HEENT: PERRL/EOMI Respiratory: No Accessory Muscle Use, No Respiratory Distress Cardiovascular: Normal Peripheral Pulses, Tachycardia Peripheral Pulses: 0 Carotid (R), 0 Carotid (L), 0 Femoral (R), 0 Femoral (L), 0 Dorsalis Pedis (R), 0 Left Dors-Pedis (L), 0 Radial Pulses (R), 0 Radial Pulses (L) Gastrointestinal: distended, No tenderness, other (No Tyrone's or Grace-Jordan's ) Extremity: Normal Capillary Refill, Normal Inspection, Non Tender, No Calf Tenderness Neurologic/Psychiatric: Alert, Oriented x3, No Motor/Sensory Deficits, Normal Mood/Affect, global clinical leader II-XII Norm as Tested Skin: Other (Dressing CDI) Results Lab Laboratory Tests 09/17/16 09:22: Glucometer 112H 09/17/16 12:39: Glucometer 122H 09/17/16 13:11: Lab Scanned Report Transfusion Reaction Form 09/17/16 17:10: Glucometer 94 09/17/16 20:02: Glucometer 99 09/18/16 00:07: Glucometer 102 09/18/16 03:25: White Blood Count 10.8, Red Blood Count 2.45L, Hemoglobin 7.9L, Hematocrit 24L, Mean Corpuscular Volume 96, Mean Corpuscular Hemoglobin 32, Mean Corpuscular Hemoglobin Concent 34, Red Cell Distribution Width 14.4, Platelet Count 202, Mean Platelet Volume 8.6, Sodium Level 131L, Potassium Level 4.3, Chloride Level 103, Carbon Dioxide Level 21, Anion Gap 7, Blood Urea Nitrogen 12, Creatinine 0.85, Estimat Glomerular Filtration Rate > 60, BUN/Creatinine Ratio 14, Glucose Level 101, Calcium Level 8.1L, Magnesium Level 2.1, Total Bilirubin 0.3, Aspartate Amino Transf (AST/SGOT) 59H, Alanine Aminotransferase (ALT/SGPT) 21, Alkaline Phosphatase 51, Total Protein 5.1L, Albumin 3.1L 09/18/16 03:56: Glucometer 106 Assessment/Plan Assessment/Plan Assess & Plan/Chief Complaint Acute post-operative blood loss anemia Tachycardia s/p L5-S1 ALIF, L2 corpectomy, L2-3 laminectomy, T9-S2 PSF DC [place] Transfer to floor Increase bowel regimen Transfuse 1 unit PRBC Clinical Quality Measures DVT/VTE Risk/Contraindication: Risk Factor Score Per Nursin RFS Level Per Nursing on Admit: 4+=Very High MILLIE SAMANIEGO Sep 18, 2016 06:02
[2016-09-18] MEDS ORDERED: MILK OF MAGNESIA 400 MG/5 ML 30 ML UDC PO NR (06:52)
[2016-09-18] MEDS: MULTIVIT W/MINERALS TAB (THERAGRAN M) PO SCH (07:09)
--- NOTE | 2016-09-18 07:37 | Progress Note (SOAP) ---
Subjective Subjective/Events-last exam Patient voices no new complaints. He reports taking a few steps yesterday. No headache or dizziness. Objective Exam Vital Signs Date Time Temp Pulse Resp B/P (MAP) Pulse Ox O2 Delivery O2 Flow Rate FiO2 09/18/16 06:00 128 18 140/73 93 Room Air 09/18/16 05:00 115 10 141/62 86 Room Air 09/18/16 04:00 99.6 124 18 108/87 91 Room Air 09/18/16 04:00 93 Room Air 09/18/16 03:00 114 20 109/72 93 Room Air 09/18/16 02:00 134 20 121/73 91 Room Air 09/18/16 01:00 117 9 134/75 93 Room Air 09/18/16 01:00 117 09/18/16 00:00 96 Room Air 09/18/16 00:00 99.5 124 23 118/69 89 Room Air 09/17/16 22:00 115 13 132/77 93 Room Air 09/17/16 21:00 118 12 119/73 97 Room Air 09/17/16 20:00 93 Room Air 09/17/16 20:00 98.2 118 19 128/68 91 Room Air 09/17/16 19:00 122 09/17/16 19:00 115 16 113/70 91 Room Air 09/17/16 18:00 118 19 98/61 93 Room Air 09/17/16 17:00 122 28 103/90 Room Air 09/17/16 16:06 98.3 09/17/16 16:00 112 9 122/71 94 Room Air 09/17/16 16:00 100 Room Air 09/17/16 15:00 113 17 116/71 92 Room Air 09/17/16 14:00 112 10 110/63 95 Room Air 09/17/16 13:00 112 09/17/16 13:00 112 9 122/69 Room Air 09/17/16 12:30 99.1 09/17/16 12:00 107 11 109/54 92 Room Air 09/17/16 12:00 100 Room Air 09/17/16 11:00 112 7 119/63 92 Room Air 09/17/16 08:00 100 Room Air 09/17/16 08:00 96 11 110/91 100 Room Air 09/17/16 08:00 98.3 Room Air I & O 09/18/16 07:00 Intake Total 3245 ml Output Total 2680 ml Balance 565 ml Capillary Refill : General Appearance: No Apparent Distress Neck: Full Range of Motion Respiratory: Lungs Clear Cardiovascular: No Murmur, Tachycardia Gastrointestinal: soft Results Lab Laboratory Tests 09/17/16 09:22: Glucometer 112H 09/17/16 12:39: Glucometer 122H 09/17/16 13:11: Lab Scanned Report Transfusion Reaction Form 09/17/16 17:10: Glucometer 94 09/17/16 20:02: Glucometer 99 09/18/16 00:07: Glucometer 102 09/18/16 03:25: White Blood Count 10.8, Red Blood Count 2.45L, Hemoglobin 7.9L, Hematocrit 24L, Mean Corpuscular Volume 96, Mean Corpuscular Hemoglobin 32, Mean Corpuscular Hemoglobin Concent 34, Red Cell Distribution Width 14.4, Platelet Count 202, Mean Platelet Volume 8.6, Sodium Level 131L, Potassium Level 4.3, Chloride Level 103, Carbon Dioxide Level 21, Anion Gap 7, Blood Urea Nitrogen 12, Creatinine 0.85, Estimat Glomerular Filtration Rate > 60, BUN/Creatinine Ratio 14, Glucose Level 101, Calcium Level 8.1L, Magnesium Level 2.1, Total Bilirubin 0.3, Aspartate Amino Transf (AST/SGOT) 59H, Alanine Aminotransferase (ALT/SGPT) 21, Alkaline Phosphatase 51, Total Protein 5.1L, Albumin 3.1L 09/18/16 03:56: Glucometer 106 Assessment/Plan Assessment/Plan Assess & Plan/Chief Complaint 1. Status post lumbar spine surgery day number 2 -Being followed by orthopedics Dr. Ramsey -Patient to remain in ICU today. 09/18 will be moving to floor today 2. Anemia perioperative with 2 units of blood received -Hemoglobin today 9.1 09/18 Hg dropped to 7.9 -agree with 1 U of PRBCs 3. Hypertension -We will add on blood pressure medications as condition improves 09/18 hold on bp meds until more physically active and tachycardia improves. 4. Tachycardia-believe from anemia -will monitor after Hg stabilized in a more normal range 5. Hyperlipidemia 6. Tobaccoism Clinical Quality Measures DVT/VTE Risk/Contraindication: Risk Factor Score Per Nursin RFS Level Per Nursing on Admit: 4+=Very High ABIGAIL CORREIA MD Sep 18, 2016 07:37
[2016-09-18 07:58] LABS: CALCIUM PH 7.28
[2016-09-18] MEDS: SENNOSIDES 8.6 MG (SENOKOT) TAB PO SCH ×2 (07:58→20:14)
[2016-09-18] MEDS: FAMOTIDINE 20 MG (PEPCID) TABLET PO SCH ×2 (07:58→20:14)
[2016-09-18] MEDS ORDERED: NS IV 500 ML 500 ML IV ONE (08:00)
[2016-09-18 08:01] LABS: CALCIUM PH 7.27
[2016-09-18] MEDS: POLYETHYLENE GLYCOL 17 GM (MIRALAX) PACK PO SCH (10:16)
--- NOTE | 2016-09-18 11:41 | Physical Therapy Daily Note ---
PT Daily Note-Current Subjective Pt sitting in recliner after just finishing with OT upon arrival. Pt agrees to PT for walking and EX. Pain Numeric Pain Scale: 6 Location Body Site: Back Pain Description: Ache Mental Status Patient Orientation: Person, Place, Time, Situation Attachments: Other-See Comments (Back Brace) Transfers Functional [place] Measure 0=Not Assessed/NA 4=Minimal Assistance 1=Total Assistance 5=Supervision or Setup 2=Maximal Assistance 6=Modified [place] 3=Moderate Assistance 7=Complete IndependenceIRFPAI Quality Coding Scale 6 Independent with activity with or without an assistive device 5 Patient requires set up or clean up by helper. Patient completes activity by themselves 4 Supervision or touching assist (CGA). [place] provide cues , steadying assist 3 The helper provides less than half the effort to complete the activity 2 The helper provides more than half the effort to complete the activity 1 Dependent. The helper does all the effort to complete an activity 7 Patient refused to complete or attempt activity 9 The patient did not perform the activity before the current illness or injury 88 Not attempted due to Medical conditions or safety concerns Scootin Sit to/from Stand: 5 Weight Bearing Weight Bearing Restriction: Full Weight Bearing Location Restriction: LE Bilateral Gait Training Distance (FIM): 3=150 ft Distance: 200' Gait Level of Assist: 5 Gait Persons Needed: 1 Gait Assistive Device: FWW Pt's mao is slow but steady with no LOB. Pt is having some pain and nurse to bring pain med so pt returns to room. Exercises Seated Therapy Exercises: Ankle pumps, Long arc quads, Hip flexion, Kicking activity, Hip abd/add Seated Reps: 15 Treatments Pt transfers from recliner using FWW at [facility]. Pt ambulates in hallway using FWW at [facility]. Pt in pain and nurse bringing pain med so pt returns to room to rest. Pt transfers to recliner for nurse to give pain pill. Pt completes Seated Ex in recliner. Pt is left in recliner with all needs met at end of tx. Assessment Current Status: Good Progress Pt is improving with safety and independence of transfers and mobility. PT will return in PM for tx again. PT Manager Sustainability Goals Detention Goals PT Manager Sustainability Goals Time Frame: Sep 24, 2016 Transfers (B,C,W/C) (FIM): 6 Gait (FIM): 6 Gait distance (FIM): 3=150 ft Gait Level of Assist: 6 Gait Assistive Device: FWW PT Plan Problem List Problem List: Activity Tolerance, Functional Strength, Gait Treatment/Plan Treatment Plan: Continue Plan of Care Treatment Plan: Bed Mobility, Education, Functional Activity Alysia, Functional Strength, Gait, Safety, Therapeutic Exercise, Transfers Treatment Duration: Sep 24, 2016 Visits Per Week: 6-11 Safety Risks/Education Patient Education: Gait Training, Transfer Techniques, Correct Positioning, Reviewed Don/Doff Brace, Safety Issues Teaching Recipient: Patient Teaching Methods: Discussion Response to Teaching: Verbalize Understanding Time/GCodes Time In: 1112 Time Out: 1127 Total Billed Treatment Time: 15 Total Billed Treatment visit, FA (15m) CECILIO ROJO PTA Sep 18, 2016 11:41
--- NOTE | 2016-09-18 11:48 | Occupational Ther Daily Note ---
OT Current Status-Daily Note Subjective Pt agrees to treatment this am. Pt report 6/10 back pain pain. Mental Status/Objective Functional [place] Measure 0=Not Assessed/NA 4=Minimal Assistance 1=Total Assistance 5=Supervision or Setup 2=Maximal Assistance 6=Modified [place] 3=Moderate Assistance 7=Complete [place] ADL-Treatment Pt standing next to recliner when therapist arrives. Pt states he wants to use restroom and get dressed. Gait to restroom with FWW. Toilet transfer completed with SBA. Pt unable to have BM. Sit to stand with supervision. Pt donned pullover shirt with set up. Assist required to don back brace. Pt instructed in use of lead cytogenetic technologist for LE dressing. Pt donned underwear and pants with minimal assistance using lead cytogenetic technologist to start pants over feet, cues for technique. Stood with supervision for pant hike. Pt in room with PT present after session. Upper Body (FIM): 5 Lower Body Dressing (FIM): 4 Toilet/Commode Transfer (FIM): 5 Education OT Patient Education: Modified ADL techniques Teaching Recipient: Patient Teaching Methods: Discussion Response to Teaching: Verbalize Understanding OT Short Term Goals Short Term Goals 1=Demonstrate adherence to instructed precautions during ADL tasks. 2=Patient will verbalize/demonstrate understanding of assistive devices/ modifications for ADL. 3=Patient will improve strength/tolerance for activity to enable patient to perform ADL's. OT Correction Goals Correction Goals Time Frame: Sep 24, 2016 Eating (FIM): 6 Grooming(FIM): 6 Bathing(FIM): 6 Upper Body Dressing(FIM): 6 Lower Body Dressing(FIM): 6 Toileting(FIM): 6 Toilet/Commode Transfer(FIM): 6 Shower Transfer(FIM): 6 Additional Goals: 2-Verbalize Understanding, 3-ImproveStrength/Alysia 1=Demonstrate adherence to instructed precautions during ADL tasks. 2=Patient will verbalize/demonstrate understanding of assistive devices/ modifications for ADL. 3=Patient will improve strength/tolerance for activity to enable patient to perform ADL's. OT Education/Plan Problem List/Assessment Pt would benefit from skilled OT to increase his independence in basic self care to allow him to return home safely with his . Discharge Recommendations Plan/Recommendations: Continue POC Treatment Plan/Plan of Care Patient would benefit from OT for education, treatment and training to promote independence in ADL's, mobility, safety and/or upper extremity function for ADL' s. Plan of Care: ADL Retraining, Functional Mobility, UE Funct Exercise/Act, UE Neuromus Re-Ed/Coord Treatment Duration: Sep 24, 2016 Visits Per Week: 5 Agreement: Yes Rehab Potential: Good Time/GCodes Start Time: 10:52 Stop Time: 11:12 Total Time Billed (hr/min): 20 Billed Treatment Time 1 visit, ADL(20minutes) ADRIENNE MARCANO OT Sep 18, 2016 11:48
--- NOTE | 2016-09-18 13:58 | Physical Therapy Daily Note ---
PT Daily Note-Current Subjective Pt is sitting in recliner upon arrival. Pt is wanting to walk for PT. Pain Numeric Pain Scale: 3 Location Body Site: Back Pain Description: Ache Mental Status Patient Orientation: Person, Place, Time, Situation Attachments: Other-See Comments (Back Brace) Transfers Functional [place] Measure 0=Not Assessed/NA 4=Minimal Assistance 1=Total Assistance 5=Supervision or Setup 2=Maximal Assistance 6=Modified [place] 3=Moderate Assistance 7=Complete IndependenceIRFPAI Quality Coding Scale 6 Independent with activity with or without an assistive device 5 Patient requires set up or clean up by helper. Patient completes activity by themselves 4 Supervision or touching assist (CGA). [employer] provide cues , steadying assist 3 The helper provides less than half the effort to complete the activity 2 The helper provides more than half the effort to complete the activity 1 Dependent. The helper does all the effort to complete an activity 7 Patient refused to complete or attempt activity 9 The patient did not perform the activity before the current illness or injury 88 Not attempted due to Medical conditions or safety concerns Scootin Sit to/from Stand: 5 Weight Bearing Weight Bearing Restriction: Full Weight Bearing Location Restriction: LE Bilateral Gait Training Distance (FIM): 3=150 ft Distance: 450 Gait Level of Assist: 5 Gait Persons Needed: 1 Gait Assistive Device: FWW Pt walks with normalized gait. Pt's mao is getting more normalized and pt is steady, no LOB during tx. Treatments Pt transferred from recliner using FWW at [facility]. PT assisted pt with putting back brace on and instructed pt how the brace goes on. Pt ambulated in hallway using FWW at [facility]. Pt returned to room due to fatigue and pain. Pt returned to recliner to rest with all needs met at end of tx. Assessment Current Status: Good Progress Pt has increased distance of ambulation and activity tolerance. PT Senior Living Goals Senior Living Goals PT Senior Living Goals Time Frame: Sep 24, 2016 Transfers (B,C,W/C) (FIM): 6 Gait (FIM): 6 Gait distance (FIM): 3=150 ft Gait Level of Assist: 6 Gait Assistive Device: FWW PT Plan Problem List Problem List: Activity Tolerance, Functional Strength, Gait Treatment/Plan Treatment Plan: Continue Plan of Care Treatment Plan: Bed Mobility, Education, Functional Activity Alysia, Functional Strength, Gait, Safety, Therapeutic Exercise, Transfers Treatment Duration: Sep 24, 2016 Visits Per Week: 6-11 Safety Risks/Education Patient Education: Gait Training, Transfer Techniques, Reviewed Don/Doff Brace , Safety Issues Teaching Recipient: Patient Teaching Methods: Discussion Response to Teaching: Verbalize Understanding Time/GCodes Time In: 1320 Time Out: 1340 Total Billed Treatment Time: 20 Total Billed Treatment visit, GT (20m) CECILIO ROJO ELECTRICAL APPLIANCE SERVICER Sep 18, 2016 13:57
[2016-09-18] MEDS: BISACODYL 5 MG (DULCOLAX) TABLET PO PRN (17:18)
[2016-09-19] VITALS (7 sets, daily range): BP systolic 130–174; BP diastolic 78–96
[2016-09-19] MEDS: NS IV 1000 ML 1,000 ML IV SCH ×3 (04:06→15:20)
[2016-09-19] MEDS: oxyCODONE/APAP 10/325MG (PERCOCET 10) TABLET PO PRN ×4 (04:08→20:50)
[2016-09-19] MEDS: MULTIVIT W/MINERALS TAB (THERAGRAN M) PO SCH (05:59)
[2016-09-19] MEDS: KCL 20 MEQ TAB (K-DUR) PO SCH (06:00)
[2016-09-19] MEDS: MAGNESIUM 1 GM/100 ML IVPB 100 ML IV SCH (06:00)
[2016-09-19] MEDS: POTASSIUM CL 10MEQ/50ML IVPB 50 ML IV SCH (06:00)
--- NOTE | 2016-09-19 06:15 | Progress Note (SOAP) ---
Subjective Subjective/Events-last exam States he already has less pain than he's been living with for last year +. Super pleased. Walking upright with level shoulders. Objective Exam Vital Signs Date Time Temp Pulse Resp B/P (MAP) Pulse Ox O2 Delivery O2 Flow Rate FiO2 09/19/16 04:00 98.4 108 18 165/85 100 Room Air 09/19/16 00:00 100.6 102 20 130/78 90 Room Air 09/18/16 20:45 98.7 105 16 151/75 96 Room Air 09/18/16 20:15 Room Air 09/18/16 11:57 97.4 131 20 128/89 99 Room Air 09/18/16 10:26 98.8 126 20 130/62 100 09/18/16 09:00 113 9 126/80 96 Room Air 09/18/16 08:40 2.00 09/18/16 08:07 98.4 123 10 109/89 91 09/18/16 08:00 98.7 116 20 113/83 89 Room Air 09/18/16 07:52 98.7 120 20 113/83 89 09/18/16 07:00 120 09/18/16 07:00 115 12 109/89 96 Room Air I & O 09/19/16 07:00 Intake Total 4340 ml Output Total 1210 ml Balance 3130 ml Capillary Refill : General Appearance: No Apparent Distress Respiratory: Normal Breath Sounds, No Accessory Muscle Use, No Respiratory Distress Cardiovascular: Tachycardia Gastrointestinal: non tender, soft Extremity: Normal Capillary Refill, No Calf Tenderness Neurologic/Psychiatric: Alert, Oriented x3, No Motor/Sensory Deficits Results Lab Laboratory Tests 09/18/16 08:52: Lactic Acid Level 1.12 Assessment/Plan Assessment/Plan Assess & Plan/Chief Complaint 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 Clinical Quality Measures DVT/VTE Risk/Contraindication: Risk Factor Score Per Nursin RFS Level Per Nursing on Admit: 4+=Very High JONATHAN BUTCHER MD Sep 19, 2016 06:15
[2016-09-19 06:21] LABS: BASOPHILS % (AUTO) 0 % (0-10); EOSINOPHILS % (AUTO) 0 % (0-10); LYMPHOCYTES # (AUTO) 0.5 X 10^3 (1.0-4.0); LYMPHOCYTES % (AUTO) 5 % (12-44); MEAN CORPUSCULAR HEMOGLOBIN 31 PG (25-34); MEAN CORPUSCULAR HGB CONC 34 G/DL (32-36); MEAN CORPUSCULAR VOLUME 94 FL (80-99); MEAN PLATELET VOLUME 8.3 FL (7.4-10.4); MONOCYTES # (AUTO) 0.9 X 10^3 (0.0-1.0); MONOCYTES % (AUTO) 8 % (0-12); NEUTROPHILS # (AUTO) 9.7 X 10^3 (1.8-7.8); NEUTROPHILS % (AUTO) 87 % (42-75); PLATELET COUNT 220 10^3/uL (130-400); RED CELL DISTRIBUTION WIDTH 14.8 % (10.0-14.5); WHITE BLOOD COUNT 11.1 10^3/uL (4.3-11.0)
[2016-09-19] MEDS ORDERED: BACL10TA PO (06:21)
[2016-09-19] MEDS ORDERED: OXYC-465 PO (06:21)
[2016-09-19 06:47] LABS: ANION GAP 11 MMOL/L (5-14); BLOOD UREA NITROGEN 8 MG/DL (7-18); BUN/CREATININE RATIO 11; CALCIUM 8.8 MG/DL (8.5-10.1); CARBON DIOXIDE 21 MMOL/L (21-32); CHLORIDE 99 MMOL/L (98-107); CREATININE SERUM 0.72 MG/DL (0.60-1.30); GFR ESTIMATED > 60; GLUCOSE 102 MG/DL (70-105); POTASSIUM 3.7 MMOL/L (3.6-5.0); SODIUM 131 MMOL/L (135-145)
--- NOTE | 2016-09-19 07:30 | Progress Note (SOAP) ---
Subjective Subjective/Events-last exam Feeling better. No current complaints. Objective Exam Vital Signs Date Time Temp Pulse Resp B/P (MAP) Pulse Ox O2 Delivery O2 Flow Rate FiO2 09/19/16 04:00 98.4 108 18 165/85 100 Room Air 09/19/16 00:00 100.6 102 20 130/78 90 Room Air 09/18/16 20:45 98.7 105 16 151/75 96 Room Air 09/18/16 20:15 Room Air 09/18/16 11:57 97.4 131 20 128/89 99 Room Air 09/18/16 10:26 98.8 126 20 130/62 100 09/18/16 09:00 113 9 126/80 96 Room Air 09/18/16 08:40 2.00 09/18/16 08:07 98.4 123 10 109/89 91 09/18/16 08:00 98.7 116 20 113/83 89 Room Air 09/18/16 07:52 98.7 120 20 113/83 89 I & O 09/19/16 07:00 Intake Total 4340 ml Output Total 1210 ml Balance 3130 ml Capillary Refill : General Appearance: No Apparent Distress (and sitting in chair) Respiratory: Lungs Clear Cardiovascular: Regular Rate, Rhythm Results Lab Laboratory Tests 09/18/16 08:52: Lactic Acid Level 1.12 09/19/16 06:09: White Blood Count 11.1H, Red Blood Count 2.90L, Hemoglobin 9.1L, Hematocrit 27L , Mean Corpuscular Volume 94, Mean Corpuscular Hemoglobin 31, Mean Corpuscular Hemoglobin Concent 34, Red Cell Distribution Width 14.8H, Platelet Count 220, Mean Platelet Volume 8.3, Neutrophils (%) (Auto) 87H, Lymphocytes (%) (Auto) 5L , Monocytes (%) (Auto) 8, Eosinophils (%) (Auto) 0, Basophils (%) (Auto) 0, Neutrophils # (Auto) 9.7H, Lymphocytes # (Auto) 0.5L, Monocytes # (Auto) 0.9, Eosinophils # (Auto) 0.0, Basophils # (Auto) 0.0, Sodium Level 131L, Potassium Level 3.7, Chloride Level 99, Carbon Dioxide Level 21, Anion Gap 11, Blood Urea Nitrogen 8, Creatinine 0.72, Estimat Glomerular Filtration Rate > 60, BUN/ Creatinine Ratio 11, Glucose Level 102, Calcium Level 8.8 Assessment/Plan Assessment/Plan Assess & Plan/Chief Complaint 1. Status post lumbar spine surgery day number 2 -Being followed by orthopedics Dr. Ramsey -Patient to remain in ICU today. 09/18 will be moving to floor today 2. Anemia perioperative with 2 units of blood received -Hemoglobin today 9.1 09/18 Hg dropped to 7.9 -agree with 1 U of PRBCs 09/19 Hg 9.1 today 3. Hypertension -We will add on blood pressure medications as condition improves 09/18 hold on bp meds until more physically active and tachycardia improves. 09/19 restart bp meds today 4. Tachycardia-believe from anemia -will monitor after Hg stabilized in a more normal range -will initiate his atenolol and amlodipine today 5. Hyperlipidemia 6. Tobaccoism Clinical Quality Measures DVT/VTE Risk/Contraindication: Risk Factor Score Per Nursin RFS Level Per Nursing on Admit: 4+=Very High ABIGAIL CORREIA MD Sep 19, 2016 07:30
[2016-09-19] MEDS: FAMOTIDINE 20 MG (PEPCID) TABLET PO SCH ×2 (08:50→20:48)
[2016-09-19] MEDS: SENNOSIDES 8.6 MG (SENOKOT) TAB PO SCH ×2 (08:50→20:48)
[2016-09-19] MEDS: POLYETHYLENE GLYCOL 17 GM (MIRALAX) PACK PO SCH (08:51)
[2016-09-19] MEDS ORDERED: amLODIPine 5 MG (NORVASC) TAB PO SCH (09:00)
[2016-09-19] MEDS ORDERED: ATENOLOL 50 MG (TENORMIN) TAB PO SCH (09:00)
--- NOTE | 2016-09-19 10:46 | Physical Therapy Daily Note ---
PT Daily Note-Current Pain Numeric Pain Scale: 5-Moderate Pain Location: Medial, Lower Location Body Site: Back Pain Description: Acute Mental Status Patient Orientation: Normal For Age Transfers Functional [place] Measure 0=Not Assessed/NA 4=Minimal Assistance 1=Total Assistance 5=Supervision or Setup 2=Maximal Assistance 6=Modified [place] 3=Moderate Assistance 7=Complete IndependenceIRFPAI Quality Coding Scale 6 Independent with activity with or without an assistive device 5 Patient requires set up or clean up by helper. Patient completes activity by themselves 4 Supervision or touching assist (CGA). [place] provide cues , steadying assist 3 The helper provides less than half the effort to complete the activity 2 The helper provides more than half the effort to complete the activity 1 Dependent. The helper does all the effort to complete an activity 7 Patient refused to complete or attempt activity 9 The patient did not perform the activity before the current illness or injury 88 Not attempted due to Medical conditions or safety concerns Transfers (B, C, W/C) (FIM): 6 Scootin Sit to/from Stand: 6 Treatments Education with patient and family on donning back brace. Verbal and tactile instruction given with patient and family demonstrating good knowledge and technique. Assessment Patient is currently up independently in room and ambulates PRN in hallway with FWW and family with back brace in place. PT to dismiss patient from services due to safe LOF. PT Dog Warden Goals Custodial Goals PT Custodial Goals Time Frame: Sep 24, 2016 Transfers (B,C,W/C) (FIM): 6 Gait (FIM): 6 Gait distance (FIM): 3=150 ft Gait Level of Assist: 6 Gait Assistive Device: FWW PT Plan Treatment/Plan Treatment Plan: Discontinue PT, goals met Treatment Plan: Bed Mobility, Education, Functional Activity Alysia, Functional Strength, Gait, Safety, Therapeutic Exercise, Transfers Treatment Duration: Sep 24, 2016 Visits Per Week: 6-11 Safety Risks/Education Patient Education: Reviewed Don/Doff Brace Teaching Recipient: Patient, Family Teaching Methods: Demonstration, Discussion Response to Teaching: Verbalize Understanding, Return Demonstration Time/GCodes Time In: 840 Time Out: 855 Total Billed Treatment Time: 15 Total Billed Treatment 1 visit Educ 15 min MIN ROTHMAN PT Sep 19, 2016 10:46
--- NOTE | 2016-09-19 11:37 | Diagnostic Imaging Report ---
INDICATION: 3 days postoperative. TECHNIQUE: AP and lateral views of the spine. CORRELATION STUDY: None FINDINGS: Assessment is fairly compromised and limited on the submitted images. There is limited visualization of levels of three-level lower cervical thoracic anterior cervical decompression fusion hardware There is extensive posterior thoracolumbar sacral fusion hardware present. This has been extended since the prior imaging. Hardware appears to originate at the T10 level and extends through the sacrum. Likely corpectomy changes at L3 level with interbody strut. Thoracolumbar alignment relatively anatomic. Definitive fracture of the hardware is not present. Additional hardware with the left hip arthroplasty. Multiple some skin juan as well as extensive clips within the pelvis are present. There is rather pronounced distention, particularly of the colon with air-fluid levels. This favors likely rather pronounced ileus. Obstruction is considered less likely but is difficult to exclude. IMPRESSION: 1. Extensive thoracal lumbar sacral spinal fixation hardware, appears to extend from T10 through the sacral level. Alignment of the anatomic hardware is intact. 2. Likely rather pronounced ileus of the bowel gas pattern. Clinical correlation recommended. Dictated by: Dictated on workstation # [id number]
--- NOTE | 2016-09-19 14:31 | Occupational Ther Daily Note ---
OT Current Status-Daily Note Subjective Pt up in room, agrees to treatment. Pt reports 7/10 back pain. Mental Status/Objective Functional [place] Measure 0=Not Assessed/NA 4=Minimal Assistance 1=Total Assistance 5=Supervision or Setup 2=Maximal Assistance 6=Modified [place] 3=Moderate Assistance 7=Complete [place] ADL-Treatment Instruction provided regarding use of adaptive equipment to doff/don socks. Pt doffed socks with modified independence using dressing stick. Pt donned socks with verbal cues using sock aid. Education provided regarding where to obtain adaptive equipment. Pt states he has already showered and dressed today after set up from nursing. Pt demonstrated ability to don brace with verbal cues for technique and proper placement. Pt states understanding of all education and has no questions or concerns at this time. Pt states he will be discharging home tomorrow with spouse who will be able to assist as needed. OT Short Term Goals Short Term Goals 1=Demonstrate adherence to instructed precautions during ADL tasks. 2=Patient will verbalize/demonstrate understanding of assistive devices/ modifications for ADL. 3=Patient will improve strength/tolerance for activity to enable patient to perform ADL's. OT Skilled Nursing Goals Skilled Nursing Goals Time Frame: Sep 24, 2016 Eating (FIM): 6 Grooming(FIM): 6 Bathing(FIM): 6 Upper Body Dressing(FIM): 6 Lower Body Dressing(FIM): 6 Toileting(FIM): 6 Toilet/Commode Transfer(FIM): 6 Shower Transfer(FIM): 6 Additional Goals: 2-Verbalize Understanding, 3-ImproveStrength/Alysia 1=Demonstrate adherence to instructed precautions during ADL tasks. 2=Patient will verbalize/demonstrate understanding of assistive devices/ modifications for ADL. 3=Patient will improve strength/tolerance for activity to enable patient to perform ADL's. OT Education/Plan Problem List/Assessment Pt would benefit from skilled OT to increase his independence in basic self care to allow him to return home safely with his . Discharge Recommendations Plan/Recommendations: Continue POC Treatment Plan/Plan of Care Patient would benefit from OT for education, treatment and training to promote independence in ADL's, mobility, safety and/or upper extremity function for ADL' s. Plan of Care: ADL Retraining, Functional Mobility, UE Funct Exercise/Act, UE Neuromus Re-Ed/Coord Treatment Duration: Sep 24, 2016 Visits Per Week: 5 Agreement: Yes Rehab Potential: Good Time/GCodes Start Time: 14:08 Stop Time: 14:20 Total Time Billed (hr/min): 12 Billed Treatment Time 1 visit, ADL(12minutes) ADRIENNE MARCANO OT Sep 19, 2016 14:31
[2016-09-20 00:27] VITALS: BP 156/79
[2016-09-20] MEDS: oxyCODONE/APAP 10/325MG (PERCOCET 10) TABLET PO PRN ×2 (01:22→06:32)
[2016-09-20] MEDS: NS IV 1000 ML 1,000 ML IV SCH (01:22)
[2016-09-20] MEDS: BISACODYL 5 MG (DULCOLAX) TABLET PO PRN (01:26)
[2016-09-20 04:15] VITALS: BP 151/89
[2016-09-20] MEDS: MULTIVIT W/MINERALS TAB (THERAGRAN M) PO SCH (06:32)
[2016-09-20 06:58] LABS: BASOPHILS % (AUTO) 0 % (0-10); EOSINOPHILS # (AUTO) 0.3 10^3/uL (0.0-0.3); EOSINOPHILS % (AUTO) 3 % (0-10); LYMPHOCYTES # (AUTO) 0.7 X 10^3 (1.0-4.0); LYMPHOCYTES % (AUTO) 8 % (12-44); MEAN CORPUSCULAR HEMOGLOBIN 32 PG (25-34); MEAN CORPUSCULAR HGB CONC 34 G/DL (32-36); MEAN CORPUSCULAR VOLUME 95 FL (80-99); MEAN PLATELET VOLUME 8.3 FL (7.4-10.4); MONOCYTES # (AUTO) 0.9 X 10^3 (0.0-1.0); MONOCYTES % (AUTO) 11 % (0-12); NEUTROPHILS # (AUTO) 6.7 X 10^3 (1.8-7.8); NEUTROPHILS % (AUTO) 78 % (42-75); PLATELET COUNT 280 10^3/uL (130-400); RED BLOOD COUNT 2.92 10^6/uL (4.35-5.85); RED CELL DISTRIBUTION WIDTH 14.5 % (10.0-14.5); WHITE BLOOD COUNT 8.6 10^3/uL (4.3-11.0)
--- NOTE | 2016-09-20 07:19 | Discharge Summary ---
Diagnosis/Chief Complaint Date of Admission Sep 16, 2016 at 05:52 Date of Discharge 09/20/16 Discharge Date: Sep 20, 2016 Admission Diagnosis Admission Diagnosis Lumbar stenosis Lumbar radiculopathy Spondylolisthesis flat-back syndrome sagittal imbalance Discharge Diagnosis Lumbar stenosis Lumbar radiculopathy Spondylolisthesis Post-surgical acute blood loss anemia Reason Hospital Visit Low back and leg pain Discharge Summary Hospital Course Hospital Course Patient was evaluated by Dr. Ramsey and found to have severe lumbar stenosis and flat-back syndrome. The patient had previously had a L3-5 TLIF, by another provider, and developed a L2-3 discitis and osteomyelitis post operatively. He received antibiotic therapy, and was cleared of all infections when he was first assessed by our service. Patient was brought to [facility] for surgical intervention. His post-operative course was uneventful. He did have post-operative anemia, which reached [place] on POD #2, with a hemoglobin of 7.9. He received 1 unit PRBC. He ambulated well with PT, and had good pain control with oral analgesics. He was discharged home on POD #4 Labs Laboratory Tests 09/17/16 09:22: Glucometer 112H 09/17/16 12:39: Glucometer 122H 09/17/16 13:11: 09/17/16 17:10: 09/17/16 20:02: 09/18/16 00:07: 09/18/16 03:25: Red Blood Count 2.45L, Hemoglobin 7.9L, Hematocrit 24L, Sodium Level 131L, Calcium Level 8.1L, Aspartate Amino Transf (AST/SGOT) 59H, Total Protein 5.1L, Albumin 3.1L 09/18/16 03:56: 09/18/16 08:52: 09/19/16 06:09: White Blood Count 11.1H, Red Blood Count 2.90L, Hemoglobin 9.1L, Hematocrit 27L , Red Cell Distribution Width 14.8H, Neutrophils (%) (Auto) 87H, Lymphocytes (% ) (Auto) 5L, Neutrophils # (Auto) 9.7H, Lymphocytes # (Auto) 0.5L, Sodium Level 131L 09/20/16 06:06: Red Blood Count 2.92L, Hemoglobin 9.3L, Hematocrit 28L, Neutrophils (%) (Auto) 78H, Lymphocytes (%) (Auto) 8L, Lymphocytes # (Auto) 0.7L Procedures L5-S1 ALIF, L2 corpectomy, L3-5 hardware removal, L2-3 laminectomy, T9-S1 PSF Discharge Physical Examination Allergies: Coded Allergies: No Known Drug Allergies (Unverified , 09/16/16) Vitals & I&Os Vital Signs Date Time Temp Pulse Resp B/P (MAP) Pulse Ox O2 Delivery O2 Flow Rate FiO2 09/20/16 04:15 98.4 80 20 151/89 97 Room Air 09/18/16 08:40 2.00 Discharge Home Medications Reviewed and agree with Discharge Medication list on patient's Discharge Instruction sheet Instructions to Patient/Family Please see electonic discharge instructions given to patient. Clinical Quality Measures DVT/VTE Risk/Contraindication: Risk Factor Score Per Nursin RFS Level Per Nursing on Admit: 4+=Very High MILLIE SAMANIEGO Sep 20, 2016 07:19
[2016-09-20 07:22] LABS: ALANINE AMINOTRANSFERASE 25 U/L (0-55); ALBUMIN 3.6 G/DL (3.2-4.5); ANION GAP 9 MMOL/L (5-14); ASPARTATE AMINO TRANSFERASE 54 U/L (5-34); BILIRUBIN,TOTAL 0.6 MG/DL (0.1-1.0); BLOOD UREA NITROGEN 6 MG/DL (7-18); BUN/CREATININE RATIO 9; CARBON DIOXIDE 26 MMOL/L (21-32); CHLORIDE 99 MMOL/L (98-107); CREATININE SERUM 0.69 MG/DL (0.60-1.30); GFR ESTIMATED > 60; GLUCOSE 99 MG/DL (70-105); MAGNESIUM 2.3 MG/DL (1.8-2.4); POTASSIUM 3.5 MMOL/L (3.6-5.0); SODIUM 134 MMOL/L (135-145); TOTAL PROTEIN 6.1 G/DL (6.4-8.2)
[2016-09-20 08:11] VITALS: BP 178/99
[2016-09-20 09:50] VITALS: BP 178/99
== END 2016-09-20 09:50 | disposition home or self-care (01) | DRG 454 ==
LOC: 4TH 05:52 → SURG 05:53 → EDSTATUS 07:45 → ICU 15:10 → 4TH 09-18 09:40
PROVIDERS: ADMIT Orthopaedic Surgery Orthopaedic Surgery of the Spine; ATTEND Orthopaedic Surgery Orthopaedic Surgery of the Spine
PROC: 0SG3071 Fusion of Lumbosacral Joint with Autologous Tissue Substitute, Posterior Approach, Posterior Column, Open Approach (ICD-10-PCS; 2016-09-16)
PROC: 0SG1071 Fusion of 2 or more Lumbar Vertebral Joints with Autologous Tissue Substitute, Posterior Approach, Posterior Column, Open Approach (ICD-10-PCS; 2016-09-16)
PROC: 0RG7071 Fusion of 2 to 7 Thoracic Vertebral Joints with Autologous Tissue Substitute, Posterior Approach, Posterior Column, Open Approach (ICD-10-PCS; 2016-09-16)
PROC: 0RGA071 Fusion of Thoracolumbar Vertebral Joint with Autologous Tissue Substitute, Posterior Approach, Posterior Column, Open Approach (ICD-10-PCS; 2016-09-16)
PROC: 0SG30A0 Fusion of Lumbosacral Joint with Interbody Fusion Device, Anterior Approach, Anterior Column, Open Approach (ICD-10-PCS; principal; 2016-09-16 08:14)
DX: M96.1 Postlaminectomy syndrome, not elsewhere classified (principal); M48.06 Spinal stenosis, lumbar region; M54.16 Radiculopathy, lumbar region; M46.46 Discitis, unspecified, lumbar region; M43.16 Spondylolisthesis, lumbar region; D62 Acute posthemorrhagic anemia; E87.1 Hypo-osmolality and hyponatremia; I10 Essential (primary) hypertension; F17.210 Nicotine dependence, cigarettes, uncomplicated; E78.5 Hyperlipidemia, unspecified; M54.9 Dorsalgia, unspecified; E83.42 Hypomagnesemia; N28.9 Disorder of kidney and ureter, unspecified
CPT/HCPCS: 36415; 72082; 80048; 80053; 82330; 82962; 83605; 83735; 83880; 84484; 85007; 85014; 85018; 85025; 85027; 86920; 94664

== ENCOUNTER 2016-11-07 10:59 | Outpatient (RCR) | payer OTHER ==
[~2016-11-07 10:59] MED LIST changes: +BACL10TA PO; +HYDR-3812 PO; +OXYC-465 PO
[2017-04-17] MEDS ORDERED: OXYC-465 PO (04:37)
[2017-04-17] MEDS ORDERED: BACL10TA PO (04:37)
== END 2017-02-05 | disposition home or self-care (01) ==
LOC: LAB 10:59
PROVIDERS: ATTEND Urology
DX: D64.9 Anemia, unspecified (principal); Z85.46 Personal history of malignant neoplasm of prostate; Z85.51 Personal history of malignant neoplasm of bladder
CPT/HCPCS: 36415; 82274; 82607; 82728; 83540

== ENCOUNTER 2017-04-07 09:40 | Outpatient (CLI) | payer MEDICARE, OTHER ==
[~2017-04-07] VITALS: Ht 170.2 cm; Wt 70.8 kg
[2017-04-07 09:48] VITALS: BP 182/100
[2017-04-07] MEDS ORDERED: OXYC-465 PO (09:54)
[2017-04-07] MEDS ORDERED: AMLO10TA2 PO (09:54)
[2017-04-07 10:17] LABS: BASOPHILS % (AUTO) 0 % (0-10); EOSINOPHILS # (AUTO) 0.1 10^3/uL (0.0-0.3); EOSINOPHILS % (AUTO) 2 % (0-10); LYMPHOCYTES # (AUTO) 0.7 X 10^3 (1.0-4.0); LYMPHOCYTES % (AUTO) 14 % (12-44); MEAN CORPUSCULAR HEMOGLOBIN 33 PG (25-34); MEAN CORPUSCULAR HGB CONC 35 G/DL (32-36); MEAN CORPUSCULAR VOLUME 95 FL (80-99); MEAN PLATELET VOLUME 7.8 FL (7.4-10.4); MONOCYTES # (AUTO) 0.5 X 10^3 (0.0-1.0); MONOCYTES % (AUTO) 9 % (0-12); NEUTROPHILS # (AUTO) 3.7 X 10^3 (1.8-7.8); NEUTROPHILS % (AUTO) 74 % (42-75); PLATELET COUNT 313 10^3/uL (130-400); RED BLOOD COUNT 4.17 10^6/uL (4.35-5.85); RED CELL DISTRIBUTION WIDTH 12.5 % (10.0-14.5)
[2017-04-07 10:31] LABS: ANION GAP 12 MMOL/L (5-14); BLOOD UREA NITROGEN 13 MG/DL (7-18); BUN/CREATININE RATIO 17; CARBON DIOXIDE 21 MMOL/L (21-32); CHLORIDE 96 MMOL/L (98-107); CREATININE SERUM 0.78 MG/DL (0.60-1.30); GFR ESTIMATED > 60; GLUCOSE 113 MG/DL (70-105); POTASSIUM 4.6 MMOL/L (3.6-5.0); SODIUM 129 MMOL/L (135-145)
== END 2017-04-07 10:08 | disposition home or self-care (01) ==
LOC: PREOP 09:40
PROVIDERS: ATTEND Orthopaedic Surgery Orthopaedic Surgery of the Spine
DX: Z01.812 Encounter for preprocedural laboratory examination (principal); M54.6 Pain in thoracic spine; M54.5 Low back pain
CPT/HCPCS: 36415; 80048; 85025; 86850; 86900; 86901; 87081

== ENCOUNTER 2018-08-06 22:44 | Emergency (ER) | payer OTHER ==
[~2018-08-06] VITALS: Ht 170.2 cm; Wt 72.6 kg
[~2018-08-06 22:44] MED LIST changes: +ACHD5005 PO; +AMLO10TA7 PO; -AMLO5TAB2 PO; +AMLO5TAB9 PO; -HYDR-3812 PO
[2018-08-07] MEDS ORDERED: KETOROLAC 30 MG/ML VIAL IVP STA (00:22)
[2018-08-07] MEDS ORDERED: LACTATED RINGERS 1,000 ML IV ONE (00:22)
[2018-08-07 00:39] LABS: BILIRUBIN,URINE NEGATIVE (NEGATIVE); CLARITY,URINE CLEAR; COLOR,URINE YELLOW; GLUCOSE, URINE (UA) NEGATIVE (NEGATIVE); KETONES,URINE NEGATIVE (NEGATIVE); LEUKOCYTE ESTERASE ,URINE NEGATIVE (NEGATIVE); NITRITE,URINE NEGATIVE (NEGATIVE); PH,URINE 6 (5-9); PROTEIN,URINE NEGATIVE (NEGATIVE); UROBILINOGEN,URINE NORMAL (NORMAL)
[2018-08-07 00:42] LABS: BASOPHILS % (AUTO) 0 % (0-10); EOSINOPHILS # (AUTO) 0.1 10^3/uL (0.0-0.3); EOSINOPHILS % (AUTO) 2 % (0-10); HEMATOCRIT 38 % (40-54); HEMOGLOBIN 12.9 G/DL (13.3-17.7); LYMPHOCYTES # (AUTO) 0.5 X 10^3 (1.0-4.0); LYMPHOCYTES % (AUTO) 7 % (12-44); MEAN CORPUSCULAR HEMOGLOBIN 33 PG (25-34); MEAN CORPUSCULAR HGB CONC 34 G/DL (32-36); MEAN CORPUSCULAR VOLUME 95 FL (80-99); MEAN PLATELET VOLUME 7.6 FL (7.4-10.4); MONOCYTES # (AUTO) 0.3 X 10^3 (0.0-1.0); MONOCYTES % (AUTO) 4 % (0-12); NEUTROPHILS # (AUTO) 6.7 X 10^3 (1.8-7.8); NEUTROPHILS % (AUTO) 87 % (42-75); PLATELET COUNT 289 10^3/uL (130-400); RED CELL DISTRIBUTION WIDTH 11.6 % (10.0-14.5); WHITE BLOOD COUNT 7.7 10^3/uL (4.3-11.0)
[2018-08-07 00:48] LABS: BACTERIA,URINE FEW /HPF; RBC,URINE 0-2 /HPF; SQUAMOUS EPITHELIAL CELL,UR 0-2 /HPF
[2018-08-07 01:00] VITALS: BP 138/80
[2018-08-07 01:02] LABS: ALANINE AMINOTRANSFERASE 26 U/L (0-55); ALBUMIN 4.9 GM/DL (3.2-4.5); ALKALINE PHOSPHATASE 82 U/L (40-136); AMYLASE 34 U/L (25-125); BILIRUBIN,TOTAL 0.3 MG/DL (0.1-1.0); BUN/CREATININE RATIO 12; CALCIUM 9.8 MG/DL (8.5-10.1); CARBON DIOXIDE 19 MMOL/L (21-32); CHLORIDE 96 MMOL/L (98-107); CREATININE SERUM 0.76 MG/DL (0.60-1.30); GFR ESTIMATED > 60; GLUCOSE 104 MG/DL (70-105); LIPASE 43 U/L (8-78); POTASSIUM 4.1 MMOL/L (3.6-5.0); SODIUM 130 MMOL/L (135-145); TOTAL PROTEIN 7.6 GM/DL (6.4-8.2)
[2018-08-07] MEDS ORDERED: fentaNYL INJECTION 100 MCG/2 ML AMP IVP STA (01:34)
--- NOTE | 2018-08-07 02:12 | ED Abdominal Pain ---
General Chief Complaint: Abdominal/GI Problems Stated Complaint: ABD PAIN,TROUBLE URINATING Nursing Triage Note: rlq abdominal pain since 1900 Sepsis Screen: No Definite Risk Source of Information: Patient Exam Limitations: No Limitations History of Present Illness Date Seen by Provider: Aug 07, 2018 Time Seen by Provider: 00:15 Initial Comments PT ARRIVES VIA POV FROM HOME C/O SUDDEN ONSET OF SEVERE RLQ PAIN AROUND 1815 TONIGHT--PAIN HAS PROGRESSIVELY GOTTEN WORSE NO RADIATION OF PAIN NOTHING WORSENS OR IMPROVES PAIN--PT TAKES OXYCODONE AND TRAMADOL ROUTINELY FOR CHRONIC BACK PAIN--TOOK TRAMADOL IN THE MORNING AND TOOK OXYCODONE AT 1300. HAS NOT TAKEN ANYTHING ELSE FOR PAIN PAIN IS CONSTANT NO NAUSEA/VOMITING NO SWEATS PT HAS HAD MUCH DIFFICULTY URINATING AND ONLY VOIDING VERY SMALL AMOUNTS SINCE THE PAIN STARTED. NO HEMATURIA. NO BURNING ON URINATION. PT HAS KNOWN RIGHT INGUINAL HERNIA--VERY LARGE, BUT IS NOT PAINFUL, AND IS SOFT AND IS REDUCIBLE--BUT BULGES BACK OUT SOON IT IS REDUCED--THIS IS NO DIFFERENT THAN NORMAL, AND NO CHANGE IN SIZE. PT STATES DR. HAYES IS AWARE OF IT ( PT SEES HIM EVERY 6 MONTHS SINCE PROSTATECTOMY IN 2006) , BUT PT HAS NOT WANTED TO HAVE SURGERY ON IT PCP: DR. CORREIA UROLOGIST: DR. HAYES Allergies and Home Medications Allergies Coded Allergies: No Known Drug Allergies (Unverified , 09/16/16) Home Medications Amlodipine Besylate 10 Mg Tablet, 10 MG PO DAILY, (Reported) Atenolol 50 Mg Tablet, 50 MG PO DAILY, (Reported) Atorvastatin Calcium 10 Mg Tablet, 10 MG PO DAILY, (Reported) Lisinopril 20 Mg Tablet, 20 MG PO DAILY, (Reported) Oxycodone HCl/Acetaminophen 1 Each Tablet, 1-2 EACH PO q4-6 hrs PRN for PAIN- MODERATE Prescribed by: MILLIE SAMANIEGO on 04/17/17 0437 Tramadol HCl 50 Mg Tablet, 50 MG PO QID PRN for PAIN-MILD TO MODERATE, (Reported ) Patient Home Medication List Home Medication List Reviewed: Yes Review of Systems Review of Systems Constitutional: no symptoms reported Respiratory: No Symptoms Reported Cardiovascular: No Symptoms Reported Gastrointestinal: See HPI, Abdominal Pain; Denies Constipated, Denies Diarrhea , Denies Nausea, Denies Vomiting Genitourinary: See HPI; Denies Flank Pain Musculoskeletal: see HPI, back pain (CHRONIC/STABLE) Skin: no symptoms reported; No rash Psychiatric/Neurological: No Symptoms Reported Endocrine: No Symptoms Reported Hematologic/Lymphatic: No Symptoms Reported Past Dkrgydo-Uggjkj-Ybraiy Hx Patient Social History Alcohol Use: Regular Use Number of Drinks Today: AA Alcohol Beverage of Choice: Beer Recreational Drug Use: No Type Used: Smokeless Tobacco 2nd Hand Smoke Exposure: No Recent Foreign Travel: No Contact w/Someone Who Travel: No Recent Infectious Disease Expo: No Recent Hopitalizations: No Immunizations Up To Date Tetanus Booster (TDap): Unknown Seasonal Allergies Seasonal Allergies: No Past Medical History Surgeries: Yes (LEFT HIP REPLACEMENT; LUMBAR SPINE SURGERY; CERVICAL SPINE SURGERY; PROSTATECTOMY 2006) Joint Replacement, Orthopedic, Prostatectomy Respiratory: No Cardiac: Yes High Cholesterol, Hypertension Neurological: No Reproductive Disorders: No Sexually Transmitted Disease: No Genitourinary: Yes (PROSTATE CANCER) Gastrointestinal: Yes (RIGHT INGUINAL HERNIA) Musculoskeletal: Yes (CHRONIC BACK AND NECK PAIN--S/P CERVICAL AND LUMBAR SURGERY; LEFT HIP REPLACEMENT) Degenerate Disk Disease, Arthritis, Chronic Back Pain Endocrine: No HEENT: No Cancer: Yes Prostate Did You Recieve Any Treatments: Yes What Type of Treatment Did You: Surgical Intervention Psychosocial: No Integumentary: No Blood Disorders: No Adverse Reaction/Blood Tranf: No Family Medical History Patient reports no known family medical history. Physical Exam Vital Signs Vital Signs - First Documented 08/06/18 23:38 Temp 97.7 Pulse 78 Resp 20 B/P (MAP) 151/86 (107) Pulse Ox 98 O2 Delivery Room Air Capillary Refill : Less Than 3 Seconds Height/Weight/BMI Height: 5'7.00" Weight: 160lbs. 0.0oz. 72.007364ve; 24.4 BMI Method:Stated General Appearance: WD/WN, other (APPEARS UNCOMFORTABLE, UNABLE TO LAY STILL) Neck: normal inspection Respiratory: normal breath sounds, no respiratory distress, no accessory muscle use Cardiovascular: regular rate, rhythm, no murmur Gastrointestinal: normal bowel sounds, soft; No distended, No guarding, No rebound; tenderness (RLQ TENDERNESS), hernia (VERY LARGE RIGHT INGUINAL HERNIA. SOFT, NON-TENDER, REDUCIBLE BUT IMMEDIATELY BULGES BACK OUT SOON IT IS REDUCED. 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, no motor/sensory deficits, alert, oriented x 3 Skin: normal color, warm/dry; No rash Progress/Results/Core Measures Results/Orders Lab Results Laboratory Tests Test 08/07/18 00:15 08/07/18 00:30 Range/Units Urine Color YELLOW Urine Clarity CLEAR Urine pH 6 5-9 Urine Specific [place] 1.020 1.016-1.022 Urine Protein NEGATIVE NEGATIVE Urine Glucose (UA) NEGATIVE NEGATIVE Urine Ketones NEGATIVE NEGATIVE Urine Nitrite NEGATIVE NEGATIVE Urine Bilirubin NEGATIVE NEGATIVE Urine Urobilinogen NORMAL NORMAL MG/DL Urine Leukocyte Esterase NEGATIVE NEGATIVE Urine RBC (Auto) 2+ H NEGATIVE Urine RBC 0-2 /HPF Urine WBC NONE /HPF Urine Squamous Epithelial Cells 0-2 /HPF Urine Crystals NONE /LPF Urine Bacteria FEW H /HPF Urine Casts NONE /LPF Urine Mucus NEGATIVE /LPF Urine Culture Indicated NO White Blood Count 7.7 4.3-11.0 10^3/uL Red Blood Count 3.97 L 4.35-5.85 10^6/uL Hemoglobin 12.9 L 13.3-17.7 G/DL Hematocrit 38 L 40-54 % Mean Corpuscular Volume 95 80-99 FL Mean Corpuscular Hemoglobin 33 25-34 PG Mean Corpuscular Hemoglobin Concent 34 32-36 G/DL Red Cell Distribution Width 11.6 10.0-14.5 % Platelet Count 289 130-400 10^3/uL Mean Platelet Volume 7.6 7.4-10.4 FL Neutrophils (%) (Auto) 87 H 42-75 % Lymphocytes (%) (Auto) 7 L 12-44 % Monocytes (%) (Auto) 4 0-12 % Eosinophils (%) (Auto) 2 0-10 % Basophils (%) (Auto) 0 0-10 % Neutrophils # (Auto) 6.7 1.8-7.8 X 10^3 Lymphocytes # (Auto) 0.5 L 1.0-4.0 X 10^3 Monocytes # (Auto) 0.3 0.0-1.0 X 10^3 Eosinophils # (Auto) 0.1 0.0-0.3 10^3/uL Basophils # (Auto) 0.0 0.0-0.1 10^3/uL Neutrophils % (Manual) 81 % Lymphocytes % (Manual) 9 % Monocytes % (Manual) 8 % Eosinophils % (Manual) 2 % Sodium Level 130 L 135-145 MMOL/L Potassium Level 4.1 3.6-5.0 MMOL/L Chloride Level 96 L 98-107 MMOL/L Carbon Dioxide Level 19 L 21-32 MMOL/L Anion Gap 15 H 5-14 MMOL/L Blood Urea Nitrogen 9 7-18 MG/DL Creatinine 0.76 0.60-1.30 MG/DL Estimat Glomerular Filtration Rate > 60 BUN/Creatinine Ratio 12 Glucose Level 104 70-105 MG/DL Calcium Level 9.8 8.5-10.1 MG/DL Corrected Calcium 8.5-10.1 MG/DL Total Bilirubin 0.3 0.1-1.0 MG/DL Aspartate Amino Transf (AST/SGOT) 28 5-34 U/L Alanine Aminotransferase (ALT/SGPT) 26 0-55 U/L Alkaline Phosphatase 82 40-136 U/L Total Protein 7.6 6.4-8.2 GM/DL Albumin 4.9 H 3.2-4.5 GM/DL Amylase Level 34 25-125 U/L Lipase 43 8-78 U/L My Orders Orders - LIZETTE,KAYLA K DO Saline Lock/Iv-Start (08/07/18 00:22) Ct Abd/Pelvis Wo(Kidney Stone) (08/07/18 00:22) Amylase (08/07/18 00:22) Cbc With Automated Diff (08/07/18 00:22) Comprehensive Metabolic Panel (08/07/18:22) Lipase (08/07/18 00:22) Ua Culture If Indicated (08/07/18:22) Abdomen/Kub 1view (08/07/18 00:22) Saline Lock/Iv-Start (08/07/18 00:22) Lactated Ringers (Lr 1000 Ml Iv Solution (08/07/18 00:22) Ketorolac Injection (Toradol Injection) (08/07/18 00:22) Manual Differential (08/07/18 00:30) Fentanyl Injection (Sublimaze Injection (08/07/18 01:34) Medications Given in ED Current Medications Medications Dose Ordered Sig/Felice Route Start Time Stop Time Status Last Admin Dose Admin Lactated Ringer's 1,000 ml @ 0 mls/hr Q0M ONCE IV 08/07/18 00:22 08/07/18 00:24 DC 08/07/18 00:31 0 MLS/HR Vital Signs/I&O 08/06/18 08/07/18 08/07/18 08/07/18 23:38 00:31 01:00 02:17 Temp 97.7 97.7 97.9 Pulse 78 95 88 Resp 20 18 16 B/P (MAP) 151/86 (107) 138/80 (99) 154/87 (109) Pulse Ox 98 100 97 O2 Delivery Room Air Room Air Room Air Blood Pressure Mean: 99 Progress Progress Note : Progress Note PT ABLE TO URINATE AFTER TORADOL, ON RETURN FROM CT--VOIDED > 500 ML, PT HAD DRAMATIC IMPROVEMENT IN SYMPTOMS AT THAT TIME PT WITH SOME RESIDUAL PAIN--GIVEN FENTANYL AND IS FEELING MUCH BETTER PT FEELS COMFORTABLE GOING HOME DISCUSSED THE POSSIBILITY OF PASSAGE OF SMALL KIDNEY STONE, VS HERNIA-RELATED PAIN. Diagnostic Imaging Comments ACUTE ABDOMEN XRAYS--NO ACUTE PROCESS, PENDING RADIOLOGIST REVIEW CT ABDOMEN/PELVIS--RIGHT INGUINAL HERNIA CONTAINING SMALL BOWEL AND RIGHT COLON WITH BOWEL EXTENDING INTO RIGHT SCROTAL SAC. MAY BE INCARCERATED BUT NO STRANGULATION OR BOWEL WALL THICKENING. PER [facility] VIA FAX @ 0215 Reviewed: Reviewed by Me Departure Impression Primary Impression: RLQ abdominal pain Additional Impressions: Right inguinal hernia Microscopic hematuria Disposition: 01 HOME, SELF-CARE Condition: Improved Departure-Patient Inst. Referrals: BRAD VICK MD, DANIEL J MD (PCP/Family) Primary Care Physician CAROL ANN HAYES MD Patient Instructions: Acute Abdomen (Belly Pain), Adult (DC), Blood in the Urine (Hematuria), Adult (DC), Groin Hernia (DC) Add. Discharge Instructions: LOTS OF CLEAR LIQUIDS TAKE YOUR HOME PAIN MEDICATIONS PRESCRIBED FOLLOW UP WITH DR. VICK OR SURGEON OF CHOICE NEXT WEEK FOR FURTHER CARE FOLLOW UP WITH DR. HAYES IF YOU CONTINUE TO HAVE FURTHER PROBLEMS URINATING OR YOU MAY ALSO FOLLOW UP WITH HIM FOR THIS PROBLEM All discharge instructions reviewed with patient and/or family. Voiced understanding. KAYLA BAUER DO Aug 07, 2018 02:12
[2018-08-07 02:17] VITALS: BP 154/87
[2018-08-07 03:32] LABS: EOSINOPHILS % (MANUAL) 2 %; LYMPHOCYTES % (MANUAL) 9 %; MONOCYTES % (MANUAL) 8 %; NEUTROPHILS % (MANUAL) 81 %
--- NOTE | 2018-08-07 07:46 | Diagnostic Imaging Report ---
INDICATION: Right lower quadrant pain. Difficulty urinating. FINDINGS: KUB shows normal bowel gas pattern. There is no evidence of ileus or obstruction. No organomegaly. No pathologic calcification. Multiple clips in the pelvis consistent with prostatectomy. Extensive hardware from thoracic and lumbar surgery. IMPRESSION: No acute abnormalities noted within the abdomen. Dictated by: Dictated on workstation # [id number]
--- NOTE | 2018-08-07 07:51 | Diagnostic Imaging Report ---
PROCEDURE: CT urinary tract, rule out kidney stone. TECHNIQUE: Multiple contiguous axial images were obtained through the abdomen and pelvis without the use of intravenous contrast. INDICATION: Right-sided abdominal pain, difficulty urinating, history of prostatectomy and back surgery. FINDINGS: Lung bases are clear. There is hepatomegaly. Gallbladder is nondistended. Bile ducts are not dilated. No pericholecystic fluid. Pancreas appears normal. Spleen is normal. The adrenal glands are normal. Kidneys appear normal. There is considerable hardware artifact throughout the abdomen from extensive surgical rodding of the spine. Bowel gas pattern appears normal. Appendix is visualized and not dilated. There is diverticulosis without evidence of diverticulitis. Prostate is absent. Bladder is normal without evidence of obstructive process. Moderate distention of the bladder is noted. There is large right inguinal hernia containing both small bowel and colon which extends into the scrotum. No definite obstruction or incarceration is seen. IMPRESSION: 1. Large right inguinal hernia containing both colon and small bowel. No findings are seen at this time that would indicate incarceration or obstruction. 2. Moderately distended bladder which otherwise appears normal. Prostate absent. Dictated by: Dictated on workstation # [id number]
--- OUTSIDE RECORDS SUMMARY | 2018-08-09 05:40 | XMS REPORT | Continuity of Care Document ---
Author Author [facility] Organization [facility] Address Unknown Phone Unavailable Allergies Active Description Code Type Severity Reaction Onset Reported/Identified Relationship to Patient Clinical Status Yes celecoxib [id number] Drug Allergy Unknown N/A 2006 Yes No Known Drug Allergies [id number] Drug Allergy Unknown N/A 09/16/2016 Medications There is no data. Problems Date Dx Coded Attending Type Code [...] M96.1 POSTLAMINECTOMY SYNDROME, NOT ELSEWHERE 10/20/2015 BLAYNE PANDYE MD Ot Z79.899 OTHER RN TRANSITIONAL CARE (CURRENT) DRUG THERAPY 10/29/2015 LANA AJ APRN Ot M48.06 SPINAL STENOSIS, LUMBAR REGION 10/29/2015 LANA AJ APRN Ot S32.029A UNSP FRACTURE OF SECOND LUMBAR VERTEBRA, 10/29/2015 LANA AJ APRN Ot W19.XXXA UNSPECIFIED FALL, INITIAL ENCOUNTER 10/29/2015 LANA AJ APRN Ot Y99.8 OTHER EXTERNAL CAUSE STATUS 10/30/2015 LANA AJ APRN Ot M48.06 SPINAL STENOSIS, LUMBAR REGION 10/30/2015 LANA AJ APRN Ot S32.029A UNSP FRACTURE OF SECOND LUMBAR VERTEBRA, 10/30/2015 LANA AJ APRN Ot W19.XXXA UNSPECIFIED FALL, INITIAL ENCOUNTER 10/30/2015 LANA AJ APRN Ot Y99.8 OTHER EXTERNAL CAUSE STATUS 11/01/2015 BLAYNE PANDEY MD Ot M53.3 SACROCOCCYGEAL DISORDERS, NOT ELSEWHERE 11/01/2015 BLAYNE PANDEY MD Ot M96.1 POSTLAMINECTOMY SYNDROME, NOT ELSEWHERE 11/01/2015 BLAYNE PANDEY MD Ot Z79.899 OTHER RN TRANSITIONAL CARE (CURRENT) DRUG THERAPY 11/07/2015 ABIGAIL CORREIA MD Ot 724.2 LUMBAGO 11/07/2015 ABIGAIL CORREIA MD Ot 729.2 NEURALGIA/NEURITIS NOS 11/07/2015 ABIGAIL CORREIA MD Ot V72.84 EXAM PRE-OPERATIVE NOS 11/07/2015 BALYNE PANDEY MD Ot M47.816 SPONDYLOSIS W/O MYELOPATHY OR RADICULOPA 11/07/2015 BLAYNE PANDEY MD Ot M51.36 OTHER INTERVERTEBRAL DISC DEGENERATION, 11/07/2015 BLAYNE PANDEY MD Ot Z98.1 ARTHRODESIS STATUS 11/08/2015 AMBERLY PEACE MD Ot D72.829 ELEVATED WHITE BLOOD CELL COUNT, UNSPECI 11/08/2015 AMBERLY PEACE MD Ot Z79.2 RN TRANSITIONAL CARE (CURRENT) USE OF ANTIBIOTICS 11/14/2015 ABIGAIL CORREIA MD Ot 724.2 LUMBAGO 11/14/2015 ABIGAIL CORERIA MD Ot 729.2 NEURALGIA/NEURITIS NOS 11/14/2015 ABIGAIL CORREIA MD Ot V72.84 EXAM PRE-OPERATIVE NOS 11/14/2015 BLAYNE PANDEY MD Ot M47.816 SPONDYLOSIS W/O MYELOPATHY OR RADICULOPA 11/14/2015 BLAYNE PANDEY MD Ot M51.36 OTHER INTERVERTEBRAL DISC DEGENERATION, 11/14/2015 BLAYNE PANDEY MD Ot Z98.1 ARTHRODESIS STATUS 11/14/2015 MABERLY PEACE MD Ot D72.829 ELEVATED WHITE BLOOD CELL COUNT, UNSPECI 11/14/2015 AMBERLY PEACE MD Ot Z79.2 CORRECTION (CURRENT) USE OF ANTIBIOTICS 11/22/2015 AMBERLY PEACE MD Ot D72.818 OTHER DECREASED WHITE BLOOD CELL COUNT 11/22/2015 AMBERLY PEACE MD Ot Z79.2 CORRECTION (CURRENT) USE OF ANTIBIOTICS 12/01/2015 AMBERLY PEACE MD A Ot D72.818 OTHER DECREASED WHITE BLOOD CELL COUNT 12/01/2015 AMBERLY PEACE MD A Ot Z79.2 CORRECTION (CURRENT) USE OF ANTIBIOTICS 12/06/2015 AMBERLY PEACE MD A Ot D72.818 OTHER DECREASED WHITE BLOOD CELL COUNT 12/06/2015 AMBERLY PEACE MD A Ot Z79.2 RN TRANSITIONAL CARE (CURRENT) USE OF ANTIBIOTICS 12/20/2015 AMBERLY PEACE MD A Ot D72.818 OTHER DECREASED WHITE BLOOD CELL COUNT 12/20/2015 AMBERLY PEACE MD A Ot Z79.2 RN TRANSITIONAL CARE (CURRENT) USE OF ANTIBIOTICS 12/21/2015 LEDA PEACE MD Ot D72.818 OTHER DECREASED WHITE BLOOD CELL COUNT 12/21/2015 LEDA PEACE MD Ot Z79.2 CORRECTION (CURRENT) USE OF ANTIBIOTICS 12/24/2015 AMBERLY PEACE MD A Ot D72.818 OTHER DECREASED WHITE BLOOD CELL COUNT 12/24/2015 AMBERLY PEACE MD A Ot Z79.2 CORRECTION (CURRENT) USE OF ANTIBIOTICS 12/26/2015 AMBERLY PEACE MD A Ot D72.818 OTHER DECREASED WHITE BLOOD CELL COUNT 12/26/2015 AMBERLY PEACE MD A Ot Z79.2 CORRECTION (CURRENT) USE OF ANTIBIOTICS 01/02/2016 AMBERLY PEACE MD A Ot D72.818 OTHER DECREASED WHITE BLOOD CELL COUNT 01/02/2016 AMBERLY PEACE MD A Ot Z79.2 CORRECTION (CURRENT) USE OF ANTIBIOTICS 01/22/2016 ABIGAIL CORREIA MD Ot 724.2 LUMBAGO 01/22/2016 ABIGAIL CORREIA MD Ot 729.2 NEURALGIA/NEURITIS NOS 01/22/2016 ABIGAIL CORREIA MD Ot V72.84 EXAM PRE-OPERATIVE NOS 01/22/2016 BLAYNE PANDEY MD Ot M47.816 SPONDYLOSIS W/O MYELOPATHY OR RADICULOPA 01/22/2016 BLAYNE PANDEY MD Ot M51.36 OTHER INTERVERTEBRAL DISC DEGENERATION, 01/22/2016 BLAYNE PANDEY MD Ot Z98.1 ARTHRODESIS STATUS 01/22/2016 AMBERLY PEACE MD Ot D72.829 ELEVATED WHITE BLOOD CELL COUNT, UNSPECI 01/22/2016 AMBERLY PEACE MD A Ot Z79.2 RN TRANSITIONAL CARE (CURRENT) USE OF ANTIBIOTICS 01/22/2016 NATA GASPAR, AMBERLY A Ot D72.818 OTHER DECREASED WHITE BLOOD CELL COUNT 01/22/2016 AMBERLY PEACE MD A Ot Z79.2 CORRECTION (CURRENT) USE OF ANTIBIOTICS 01/22/2016 AMBERLY PEACE MD A Ot D72.818 OTHER DECREASED WHITE BLOOD CELL COUNT 01/22/2016 AMBERLY PEACE MD A Ot Z79.2 RN TRANSITIONAL CARE (CURRENT) USE OF ANTIBIOTICS 01/22/2016 AMBERLY PEACE MD A Ot D72.818 OTHER DECREASED WHITE BLOOD CELL COUNT 01/22/2016 AMBERLY PEACE MD A Ot Z79.2 CORRECTION (CURRENT) USE OF ANTIBIOTICS 01/22/2016 AMBERLY PEACE MD A Ot D72.818 OTHER DECREASED WHITE BLOOD CELL COUNT 01/22/2016 AMBERLY PEACE MD A Ot Z79.2 CORRECTION (CURRENT) USE OF ANTIBIOTICS 01/22/2016 LEDA PEACE MD Ot D72.818 OTHER DECREASED WHITE BLOOD CELL COUNT 01/22/2016 LEDA PEACE MD N Ot Z79.2 CORRECTION (CURRENT) USE OF ANTIBIOTICS 01/22/2016 AMBERLY PEACE MD A Ot D72.818 OTHER DECREASED WHITE BLOOD CELL COUNT 01/22/2016 AMBERLY PEACE MD A Ot Z79.2 RN TRANSITIONAL CARE (CURRENT) USE OF ANTIBIOTICS 01/22/2016 AMBERLY PEACE MD A Ot D72.818 OTHER DECREASED WHITE BLOOD CELL COUNT 01/22/2016 AMBERLY PEACE MD A Ot Z79.2 RN TRANSITIONAL CARE (CURRENT) USE OF ANTIBIOTICS 01/22/2016 AMBERLY PEACE MD A Ot D72.818 OTHER DECREASED WHITE BLOOD CELL COUNT 01/22/2016 AMBERLY PEACE MD A Ot Z79.2 RN TRANSITIONAL CARE (CURRENT) USE OF ANTIBIOTICS 01/22/2016 ABIGAIL CORREIA MD Ot 724.2 LUMBAGO 01/22/2016 ABIGAIL CORREIA MD Ot 729.2 NEURALGIA/NEURITIS NOS 01/22/2016 ABIGAIL CORREIA MD Ot V72.84 EXAM PRE-OPERATIVE NOS 01/22/2016 BLAYNE PANDEY MD Ot M47.816 SPONDYLOSIS W/O MYELOPATHY OR RADICULOPA 01/22/2016 BLAYNE PANDEY MD Ot M51.36 OTHER INTERVERTEBRAL DISC DEGENERATION, 01/22/2016 KATHERIN GASPAR, BLAYNE Carrillo Ot Z98.1 ARTHRODESIS STATUS 01/22/2016 NATA GASPAR, AMBERLY A Ot D72.829 ELEVATED WHITE BLOOD CELL COUNT, UNSPECI 01/22/2016 AMBERLY PEACE MD A Ot Z79.2 RN TRANSITIONAL CARE (CURRENT) USE OF ANTIBIOTICS 01/22/2016 AMBERLY PEACE MD A Ot D72.818 OTHER DECREASED WHITE BLOOD CELL COUNT 01/22/2016 AMBERLY PEACE MD A Ot Z79.2 CORRECTION (CURRENT) USE OF ANTIBIOTICS 01/22/2016 AMBERLY PEACE MD A Ot D72.818 OTHER DECREASED WHITE BLOOD CELL COUNT 01/22/2016 AMBERLY PEACE MD A Ot Z79.2 CORRECTION (CURRENT) USE OF ANTIBIOTICS 01/22/2016 AMBERLY PEACE MD A Ot D72.818 OTHER DECREASED WHITE BLOOD CELL COUNT 01/22/2016 AMBERLY PEACE MD A Ot Z79.2 RN TRANSITIONAL CARE (CURRENT) USE OF ANTIBIOTICS 01/22/2016 AMBERLY PEACE MD A Ot D72.818 OTHER DECREASED WHITE BLOOD CELL COUNT 01/22/2016 AMBERLY PEACE MD A Ot Z79.2 RN TRANSITIONAL CARE (CURRENT) USE OF ANTIBIOTICS 01/22/2016 LEDA PEACE MD Ot D72.818 OTHER DECREASED WHITE BLOOD CELL COUNT 01/22/2016 LEDA PEACE MD Ot Z79.2 RN TRANSITIONAL CARE (CURRENT) USE OF ANTIBIOTICS 01/22/2016 AMBERLY PEACE MD A Ot D72.818 OTHER DECREASED WHITE BLOOD CELL COUNT 01/22/2016 AMBERLY PEACE MD A Ot Z79.2 RN TRANSITIONAL CARE (CURRENT) USE OF ANTIBIOTICS 01/22/2016 AMBERLY PEACE MD A Ot D72.818 OTHER DECREASED WHITE BLOOD CELL COUNT 01/22/2016 AMBERLY PEACE MD A Ot Z79.2 CORRECTION (CURRENT) USE OF ANTIBIOTICS 01/22/2016 AMBERLY PEACE MD A Ot D72.818 OTHER DECREASED WHITE BLOOD CELL COUNT 01/22/2016 AMBERLY PEACE MD A Ot Z79.2 CORRECTION (CURRENT) USE OF ANTIBIOTICS 01/22/2016 AMBERLY PEACE MD A Ot D72.818 OTHER DECREASED WHITE BLOOD CELL COUNT 01/22/2016 AMBERLY PEACE MD A Ot Z79.2 RN TRANSITIONAL CARE (CURRENT) USE OF ANTIBIOTICS 01/22/2016 AMBERLY PEACE MD Ot D72.818 OTHER DECREASED WHITE BLOOD CELL COUNT 01/22/2016 AMBERLY PEACE MD Ot Z79.2 RN TRANSITIONAL CARE (CURRENT) USE OF ANTIBIOTICS 01/22/2016 AMBERLY PEACE MD Ot D72.829 ELEVATED WHITE BLOOD CELL COUNT, UNSPECI 01/22/2016 AMBERLY PEACE MD Ot Z79.2 CORRECTION (CURRENT) USE OF ANTIBIOTICS 01/22/2016 BLAYNE PANDEY MD Ot M47.816 SPONDYLOSIS W/O MYELOPATHY OR RADICULOPA 01/22/2016 BLAYNE PANDEY MD Ot M51.36 OTHER INTERVERTEBRAL DISC DEGENERATION, 01/22/2016 BLAYNE PANDEY MD Ot Z98.1 ARTHRODESIS STATUS 04/15/2016 Ot 188.9 MALIG IRVIN BLADDER NOS 08/12/2016 ABIGAIL CORREIA MD Ot 724.2 LUMBAGO 08/12/2016 ABIGAIL CORREIA MD Ot 729.2 NEURALGIA/NEURITIS NOS 08/12/2016 ABIGAIL CORREIA MD Ot V72.84 EXAM PRE-OPERATIVE NOS 08/12/2016 BLAYNE PANDEY MD Ot M47.816 SPONDYLOSIS W/O MYELOPATHY OR RADICULOPA 08/12/2016 BLAYNE PANDEY MD Ot M51.36 OTHER INTERVERTEBRAL DISC DEGENERATION, 08/12/2016 BLAYNE PANDEY MD Ot Z98.1 ARTHRODESIS STATUS 08/12/2016 AMBERLY PEACE MD Ot D72.829 ELEVATED WHITE BLOOD CELL COUNT, UNSPECI 08/12/2016 AMBERLY PEACE MD Ot Z79.2 CORRECTION (CURRENT) USE OF ANTIBIOTICS 08/12/2016 AMBERLY PEACE MD Ot D72.818 OTHER DECREASED WHITE BLOOD CELL COUNT 08/12/2016 AMBERLY PEACE MD Ot Z79.2 RN TRANSITIONAL CARE (CURRENT) USE OF ANTIBIOTICS 08/12/2016 AMBERLY PEACE MD Ot D72.818 OTHER DECREASED WHITE BLOOD CELL COUNT 08/12/2016 AMBERLY PEACE MD Ot Z79.2 CORRECTION (CURRENT) USE OF ANTIBIOTICS 08/12/2016 AMBERLY PEACE MD Ot D72.818 OTHER DECREASED WHITE BLOOD CELL COUNT 08/12/2016 AMBERLY PEACE MD Ot Z79.2 CORRECTION (CURRENT) USE OF ANTIBIOTICS 08/12/2016 NATA GASPAR, AMBERLY A Ot D72.818 OTHER DECREASED WHITE BLOOD CELL COUNT 08/12/2016 NATA GASPAR, AMBERLY A Ot Z79.2 RN TRANSITIONAL CARE (CURRENT) USE OF ANTIBIOTICS 08/12/2016 NATA GASPAR, LEDA Rodríguez Ot D72.818 OTHER DECREASED WHITE BLOOD CELL COUNT 08/12/2016 NATA GASPAR, LEDA N Ot Z79.2 CORRECTION (CURRENT) USE OF ANTIBIOTICS 08/12/2016 AMBERLY PEACE MD A Ot D72.818 OTHER DECREASED WHITE BLOOD CELL COUNT 08/12/2016 NATA GASPAR, AMBERLY A Ot Z79.2 CORRECTION (CURRENT) USE OF ANTIBIOTICS 08/12/2016 AMBERLY PEACE MD A Ot D72.818 OTHER DECREASED WHITE BLOOD CELL COUNT 08/12/2016 NATA GASPAR, AMBERLY A Ot Z79.2 CORRECTION (CURRENT) USE OF ANTIBIOTICS 08/12/2016 AMBERLY PEACE MD A Ot D72.818 OTHER DECREASED WHITE BLOOD CELL COUNT 08/12/2016 NATA GASPAR, AMBERLY A Ot Z79.2 RN TRANSITIONAL CARE (CURRENT) USE OF ANTIBIOTICS 08/15/2016 Ot M54.12 RADICULOPATHY, CERVICAL REGION 08/15/2016 Ot M54.14 RADICULOPATHY, THORACIC REGION 08/15/2016 Ot M54.16 RADICULOPATHY, LUMBAR REGION 08/16/2016 Ot M54.12 RADICULOPATHY, CERVICAL REGION 08/16/2016 Ot M54.14 RADICULOPATHY, THORACIC REGION 08/16/2016 Ot M54.16 RADICULOPATHY, LUMBAR REGION 09/02/2016 ABIGAIL CORREIA MD Ot 724.2 LUMBAGO 09/02/2016 ABIGAIL CORREIA MD Ot 729.2 NEURALGIA/NEURITIS NOS 09/02/2016 ABIGAIL CORREIA MD Ot V72.84 EXAM PRE-OPERATIVE NOS 09/02/2016 BLAYNE PANDEY MD Ot M47.816 SPONDYLOSIS W/O MYELOPATHY OR RADICULOPA 09/02/2016 BLAYNE PANDEY MD Ot M51.36 OTHER INTERVERTEBRAL DISC DEGENERATION, 09/02/2016 BLAYNE PANDEY MD Ot Z98.1 ARTHRODESIS STATUS 09/02/2016 NATA GASPAR, AMBERLY A Ot D72.829 ELEVATED WHITE BLOOD CELL COUNT, UNSPECI 09/02/2016 NATA GASPAR, AMBERLY A Ot Z79.2 CORRECTION (CURRENT) USE OF ANTIBIOTICS 09/02/2016 NATA GASPAR, AMBERLY A Ot D72.818 OTHER DECREASED WHITE BLOOD CELL COUNT 09/02/2016 NATA GASPAR, AMBERLY A Ot Z79.2 RN TRANSITIONAL CARE (CURRENT) USE OF ANTIBIOTICS 09/02/2016 AMBERLY PEACE MD A Ot D72.818 OTHER DECREASED WHITE BLOOD CELL COUNT 09/02/2016 NATA GASPAR, AMBERLY A Ot Z79.2 RN TRANSITIONAL CARE (CURRENT) USE OF ANTIBIOTICS 09/02/2016 NAAT GASPAR, AMBERLY A Ot D72.818 OTHER DECREASED WHITE BLOOD CELL COUNT 09/02/2016 AMBERLY PEACE MD A Ot Z79.2 RN TRANSITIONAL CARE (CURRENT) USE OF ANTIBIOTICS 09/02/2016 NATA GASPAR, AMBERLY A Ot D72.818 OTHER DECREASED WHITE BLOOD CELL COUNT 09/02/2016 AMBERLY PEACE MD A Ot Z79.2 CORRECTION (CURRENT) USE OF ANTIBIOTICS 09/02/2016 LEDA PEACE MD Ot D72.818 OTHER DECREASED WHITE BLOOD CELL COUNT 09/02/2016 LEDA PEACE MD N Ot Z79.2 CORRECTION (CURRENT) USE OF ANTIBIOTICS 09/02/2016 AMBERLY PEACE MD A Ot D72.818 OTHER DECREASED WHITE BLOOD CELL COUNT 09/02/2016 NATA GASPAR, AMBERLY A Ot Z79.2 CORRECTION (CURRENT) USE OF ANTIBIOTICS 09/02/2016 AMBERLY PEACE MD A Ot D72.818 OTHER DECREASED WHITE BLOOD CELL COUNT 09/02/2016 NATA GASPAR, AMBERLY A Ot Z79.2 RN TRANSITIONAL CARE (CURRENT) USE OF ANTIBIOTICS 09/02/2016 NATA GASPAR, AMBERLY A Ot D72.818 OTHER DECREASED WHITE BLOOD CELL COUNT 09/02/2016 NATA GASPAR, AMBERLY A Ot Z79.2 RN TRANSITIONAL CARE (CURRENT) USE OF ANTIBIOTICS 09/02/2016 Ot M54.12 RADICULOPATHY, CERVICAL REGION 09/02/2016 Ot M54.14 RADICULOPATHY, THORACIC REGION 09/02/2016 Ot M54.16 RADICULOPATHY, LUMBAR REGION 09/02/2016 JONATHAN BUTCHER MD Ot 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, THORACOLUMBAR JAZIEL 09/02/2016 JONATHAN BUTCHER MD Ot M46.46 DISCITIS, UNSPECIFIED, LUMBAR REGION 09/02/2016 JONATHAN BUTCHER MD Ot M48.06 SPINAL STENOSIS, LUMBAR REGION 09/02/2016 JONATHAN BUTCHER MD Ot Z01.812 ENCOUNTER FOR PREPROCEDURAL LABORATORY E 09/02/2016 JONATHAN BUTCHER MD Ot Z11.2 ENCOUNTER FOR SCREENING FOR OTHER BACTER 09/03/2016 JONATHAN BUTCHER MD Ot 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, THORACOLUMBAR JAZIEL 09/03/2016 JONATHAN BUTCHER MD, Ot M46.46 DISCITIS, UNSPECIFIED, LUMBAR REGION 09/03/2016 JONATHAN BUTCHER MD Ot M48.06 SPINAL STENOSIS, LUMBAR REGION 09/03/2016 JONATHAN BUTCHER MD Ot Z01.812 ENCOUNTER FOR PREPROCEDURAL LABORATORY E 09/03/2016 JONATHAN BUTCHER MD Ot Z11.2 ENCOUNTER FOR SCREENING FOR OTHER BACTER 09/12/2016 Ot M54.12 RADICULOPATHY, CERVICAL REGION 09/12/2016 Ot M54.14 RADICULOPATHY, THORACIC REGION 09/12/2016 Ot M54.16 RADICULOPATHY, LUMBAR REGION 09/19/2016 JONATHAN BUTCHER MD Ot D62 ACUTE POSTHEMORRHAGIC ANEMIA 09/19/2016 JONATHAN BUTCHER MD Ot E78.5 HYPERLIPIDEMIA, UNSPECIFIED 09/19/2016 JONATHAN BUTCHER MD Ot E83.42 HYPOMAGNESEMIA 09/19/2016 JONATHAN BUTCHER MD Ot E87.1 HYPO-OSMOLALITY AND HYPONATREMIA 09/19/2016 JONATHAN BUTCHER MD Ot F17.210 NICOTINE DEPENDENCE, CIGARETTES, UNCOMPL 09/19/2016 JONATHAN BUTCHER MD Ot I10 ESSENTIAL (PRIMARY) HYPERTENSION 09/19/2016 JONATHAN BUTCHER MD Ot M43.16 SPONDYLOLISTHESIS, LUMBAR REGION 09/19/2016 JONATHAN BUTCHER MD Ot M46.46 DISCITIS, UNSPECIFIED, LUMBAR REGION 09/19/2016 JONATHAN BUTCHER MD Ot M48.06 SPINAL STENOSIS, LUMBAR REGION 09/19/2016 JONATHAN BUTCHER MD Ot M54.16 RADICULOPATHY, LUMBAR REGION 09/19/2016 JONATHAN BUTCHER MD Ot M54.9 DORSALGIA, UNSPECIFIED 09/19/2016 JONATHAN BUTCHER MD Ot M96.1 POSTLAMINECTOMY SYNDROME, NOT ELSEWHERE 09/19/2016 JONATHAN BUTCHER MD Ot N28.9 DISORDER OF KIDNEY AND URETER, UNSPECIFI 09/20/2016 JONATHAN BUTCHER MD Ot D62 ACUTE POSTHEMORRHAGIC ANEMIA 09/20/2016 JONATHAN BUTCHER MD Ot E78.5 HYPERLIPIDEMIA, UNSPECIFIED 09/20/2016 JONATHAN BUTCHER MD Ot E83.42 HYPOMAGNESEMIA 09/20/2016 JONATHAN BUTCHER MD Ot E87.1 HYPO-OSMOLALITY AND HYPONATREMIA 09/20/2016 JONATHAN BUTCHER MD Ot F17.210 NICOTINE DEPENDENCE, CIGARETTES, UNCOMPL 09/20/2016 JONATHAN BUTCHER MD Ot I10 ESSENTIAL (PRIMARY) HYPERTENSION 09/20/2016 JONATHAN BUTCHER MD Ot M43.16 SPONDYLOLISTHESIS, LUMBAR REGION 09/20/2016 JONATHAN BUTCHER MD Ot M46.46 DISCITIS, UNSPECIFIED, LUMBAR REGION 09/20/2016 JONATHAN BUTCHER MD Ot M48.06 SPINAL STENOSIS, LUMBAR REGION 09/20/2016 JONATHAN BUTCHER MD Ot M54.16 RADICULOPATHY, LUMBAR REGION 09/20/2016 JONATHAN BUTCHER MD Ot M54.9 DORSALGIA, UNSPECIFIED 09/20/2016 JONATHAN BUTCHER MD Ot M96.1 POSTLAMINECTOMY SYNDROME, NOT ELSEWHERE 09/20/2016 JONATHAN BUTCHER MD Ot N28.9 DISORDER OF KIDNEY AND URETER, UNSPECIFI 09/20/2016 JONATHAN BUTCHER MD Ot D62 ACUTE POSTHEMORRHAGIC ANEMIA 09/20/2016 JONATHAN BUTCHER MD Ot E78.5 HYPERLIPIDEMIA, UNSPECIFIED 09/20/2016 JONATHAN BUTCHER MD Ot E83.42 HYPOMAGNESEMIA 09/20/2016 JONATHAN BUTCHER MD Ot E87.1 HYPO-OSMOLALITY AND HYPONATREMIA 09/20/2016 JONATHAN BUTCHER MD Ot F17.210 NICOTINE DEPENDENCE, CIGARETTES, UNCOMPL 09/20/2016 JONATHAN BUTCHER MD Ot I10 ESSENTIAL (PRIMARY) HYPERTENSION 09/20/2016 JONATHAN BUTCHER MD Ot M43.16 SPONDYLOLISTHESIS, LUMBAR REGION 09/20/2016 JONATHAN BUTCHER MD Ot M46.46 DISCITIS, UNSPECIFIED, LUMBAR REGION 09/20/2016 JONATHAN BUTCHER MD Ot M48.06 SPINAL STENOSIS, LUMBAR REGION 09/20/2016 JONATHAN BUTCHER MD Ot M54.16 RADICULOPATHY, LUMBAR REGION 09/20/2016 JONATHAN BUTCHER MD Ot M54.9 DORSALGIA, UNSPECIFIED 09/20/2016 JONATHAN BUTCHER MD Ot M96.1 POSTLAMINECTOMY SYNDROME, NOT ELSEWHERE 09/20/2016 JONATHAN BUTCHER MD Ot N28.9 DISORDER OF KIDNEY AND URETER, UNSPECIFI 10/03/2016 Ot M54.12 RADICULOPATHY, CERVICAL REGION 10/03/2016 Ot M54.14 RADICULOPATHY, THORACIC REGION 10/03/2016 Ot M54.16 RADICULOPATHY, LUMBAR REGION 10/29/2016 ABIGAIL CORREIA MD Ot 724.2 LUMBAGO 10/29/2016 ABIGAIL CORREIA MD Ot 729.2 NEURALGIA/NEURITIS NOS 10/29/2016 ABIGAIL CORREIA MD Ot V72.84 EXAM PRE-OPERATIVE NOS 10/29/2016 BLAYNE PANDEY MD Ot M47.816 SPONDYLOSIS W/O MYELOPATHY OR RADICULOPA 10/29/2016 BLAYNE PANDEY MD Ot M51.36 OTHER INTERVERTEBRAL DISC DEGENERATION, 10/29/2016 BLAYNE PANDEY MD Ot Z98.1 ARTHRODESIS STATUS 10/29/2016 AMBERLY PEACE MD Ot D72.829 ELEVATED WHITE BLOOD CELL COUNT, UNSPECI 10/29/2016 AMBERLY PEACE MD Ot Z79.2 RN TRANSITIONAL CARE (CURRENT) USE OF ANTIBIOTICS 10/29/2016 AMBERLY PEACE MD Ot D72.818 OTHER DECREASED WHITE BLOOD CELL COUNT 10/29/2016 AMBERLY PEACE MD Ot Z79.2 CORRECTION (CURRENT) USE OF ANTIBIOTICS 10/29/2016 AMBERLY PEACE MD Ot D72.818 OTHER DECREASED WHITE BLOOD CELL COUNT 10/29/2016 AMBERLY PEACE MD Ot Z79.2 CORRECTION (CURRENT) USE OF ANTIBIOTICS 10/29/2016 NATA GASPAR, AMBERLY A Ot D72.818 OTHER DECREASED WHITE BLOOD CELL COUNT 10/29/2016 AMBERLY PEACE MD A Ot Z79.2 CORRECTION (CURRENT) USE OF ANTIBIOTICS 10/29/2016 AMBERLY PEACE MD A Ot D72.818 OTHER DECREASED WHITE BLOOD CELL COUNT 10/29/2016 AMBERLY PEACE MD A Ot Z79.2 CORRECTION (CURRENT) USE OF ANTIBIOTICS 10/29/2016 LEDA EPACE MD N Ot D72.818 OTHER DECREASED WHITE BLOOD CELL COUNT 10/29/2016 LEDA PEACE MD Ot Z79.2 CORRECTION (CURRENT) USE OF ANTIBIOTICS 10/29/2016 AMBERLY PEACE MD A Ot D72.818 OTHER DECREASED WHITE BLOOD CELL COUNT 10/29/2016 AMBERLY PEACE MD A Ot Z79.2 CORRECTION (CURRENT) USE OF ANTIBIOTICS 10/29/2016 AMBERLY PEACE MD A Ot D72.818 OTHER DECREASED WHITE BLOOD CELL COUNT 10/29/2016 AMBERLY PEACE MD A Ot Z79.2 CORRECTION (CURRENT) USE OF ANTIBIOTICS 10/29/2016 AMBERLY PEACE MD A Ot D72.818 OTHER DECREASED WHITE BLOOD CELL COUNT 10/29/2016 AMBERLY PEACE MD A Ot Z79.2 RN TRANSITIONAL CARE (CURRENT) USE OF ANTIBIOTICS 10/29/2016 Ot M54.12 RADICULOPATHY, CERVICAL REGION 10/29/2016 Ot M54.14 RADICULOPATHY, THORACIC REGION 10/29/2016 Ot M54.16 RADICULOPATHY, LUMBAR REGION 11/07/2016 ABIGAIL CORREIA MD Ot 724.2 LUMBAGO 11/07/2016 ABIGAIL CORREIA MD Ot 729.2 NEURALGIA/NEURITIS NOS 11/07/2016 ABIGAIL CORREIA MD Ot V72.84 EXAM PRE-OPERATIVE NOS 11/07/2016 BLAYNE PANDEY MD Ot M47.816 SPONDYLOSIS W/O MYELOPATHY OR RADICULOPA 11/07/2016 BLAYNE PANDEY MD Ot M51.36 OTHER INTERVERTEBRAL DISC DEGENERATION, 11/07/2016 BLAYNE PANDEY MD Ot Z98.1 ARTHRODESIS STATUS 11/07/2016 NATA GASPAR, AMBERLY A Ot D72.829 ELEVATED WHITE BLOOD CELL COUNT, UNSPECI 11/07/2016 AMBERLY PEACE MD A Ot Z79.2 CORRECTION (CURRENT) USE OF ANTIBIOTICS 11/07/2016 AMBERLY PEACE MD A Ot D72.818 OTHER DECREASED WHITE BLOOD CELL COUNT 11/07/2016 AMBERLY PEACE MD A Ot Z79.2 CORRECTION (CURRENT) USE OF ANTIBIOTICS 11/07/2016 AMBERLY PEACE MD Ot D72.818 OTHER DECREASED WHITE BLOOD CELL COUNT 11/07/2016 AMBERLY PEACE MD Ot Z79.2 RN TRANSITIONAL CARE (CURRENT) USE OF ANTIBIOTICS 11/07/2016 AMBERLY PEACE MD Ot D72.818 OTHER DECREASED WHITE BLOOD CELL COUNT 11/07/2016 AMBERLY PEACE MD Ot Z79.2 RN TRANSITIONAL CARE (CURRENT) USE OF ANTIBIOTICS 11/07/2016 AMBERLY PEACE MD Ot D72.818 OTHER DECREASED WHITE BLOOD CELL COUNT 11/07/2016 AMBERLY PEACE MD Ot Z79.2 CORRECTION (CURRENT) USE OF ANTIBIOTICS 11/07/2016 LEDA PEACE MD Ot D72.818 OTHER DECREASED WHITE BLOOD CELL COUNT 11/07/2016 LEDA PEACE MD Ot Z79.2 CORRECTION (CURRENT) USE OF ANTIBIOTICS 11/07/2016 AMBERLY PEACE MD Ot D72.818 OTHER DECREASED WHITE BLOOD CELL COUNT 11/07/2016 AMBERLY PEACE MD Ot Z79.2 CORRECTION (CURRENT) USE OF ANTIBIOTICS 11/07/2016 AMBERLY PEACE MD Ot D72.818 OTHER DECREASED WHITE BLOOD CELL COUNT 11/07/2016 AMBERLY PEACE MD Ot Z79.2 CORRECTION (CURRENT) USE OF ANTIBIOTICS 11/07/2016 AMBERLY PEACE MD A Ot D72.818 OTHER DECREASED WHITE BLOOD CELL COUNT 11/07/2016 AMBERLY PEACE MD A Ot Z79.2 CORRECTION (CURRENT) USE OF ANTIBIOTICS 11/07/2016 Ot M54.12 RADICULOPATHY, CERVICAL REGION 11/07/2016 Ot M54.14 RADICULOPATHY, THORACIC REGION 11/07/2016 Ot M54.16 RADICULOPATHY, LUMBAR REGION 11/07/2016 ABIGAIL CORREIA MD Ot 724.2 LUMBAGO 11/07/2016 ABIGAIL CORREIA MD Ot 729.2 NEURALGIA/NEURITIS NOS 11/07/2016 BREN GASPAR, ABIGAIL Carrillo Ot V72.84 EXAM PRE-OPERATIVE NOS 11/07/2016 BLAYNE PANDEY MD Ot M47.816 SPONDYLOSIS W/O MYELOPATHY OR RADICULOPA 11/07/2016 BLAYNE PANDEY MD Ot M51.36 OTHER INTERVERTEBRAL DISC DEGENERATION, 11/07/2016 BLAYNE PANDEY MD Ot Z98.1 ARTHRODESIS STATUS 11/07/2016 AMBERLY PEACE MD A Ot D72.829 ELEVATED WHITE BLOOD CELL COUNT, UNSPECI 11/07/2016 AMBERLY PEACE MD A Ot Z79.2 RN TRANSITIONAL CARE (CURRENT) USE OF ANTIBIOTICS 11/07/2016 AMBERLY PEACE MD A Ot D72.818 OTHER DECREASED WHITE BLOOD CELL COUNT 11/07/2016 AMBERLY PEACE MD A Ot Z79.2 CORRECTION (CURRENT) USE OF ANTIBIOTICS 11/07/2016 AMBERLY PEACE MD A Ot D72.818 OTHER DECREASED WHITE BLOOD CELL COUNT 11/07/2016 AMBERLY PEACE MD A Ot Z79.2 RN TRANSITIONAL CARE (CURRENT) USE OF ANTIBIOTICS 11/07/2016 AMBERLY PEACE MD A Ot D72.818 OTHER DECREASED WHITE BLOOD CELL COUNT 11/07/2016 AMBERLY PEACE MD A Ot Z79.2 CORRECTION (CURRENT) USE OF ANTIBIOTICS 11/07/2016 AMBERLY PEACE MD A Ot D72.818 OTHER DECREASED WHITE BLOOD CELL COUNT 11/07/2016 AMBERLY PEACE MD A Ot Z79.2 CORRECTION (CURRENT) USE OF ANTIBIOTICS 11/07/2016 LEDA PEACE MD Ot D72.818 OTHER DECREASED WHITE BLOOD CELL COUNT 11/07/2016 LEDA PEACE MD Ot Z79.2 CORRECTION (CURRENT) USE OF ANTIBIOTICS 11/07/2016 AMBERLY PEACE MD A Ot D72.818 OTHER DECREASED WHITE BLOOD CELL COUNT 11/07/2016 AMBERLY PEACE MD A Ot Z79.2 RN TRANSITIONAL CARE (CURRENT) USE OF ANTIBIOTICS 11/07/2016 AMBERLY PEACE MD A Ot D72.818 OTHER DECREASED WHITE BLOOD CELL COUNT 11/07/2016 AMBERLY PEACE MD A Ot Z79.2 RN TRANSITIONAL CARE (CURRENT) USE OF ANTIBIOTICS 11/07/2016 AMBERLY PEACE MD A Ot D72.818 OTHER DECREASED WHITE BLOOD CELL COUNT 11/07/2016 CHELO PEACE MDE A Ot Z79.2 RN TRANSITIONAL CARE (CURRENT) USE OF ANTIBIOTICS 11/07/2016 Ot M54.12 RADICULOPATHY, CERVICAL REGION 11/07/2016 Ot M54.14 RADICULOPATHY, THORACIC REGION 11/07/2016 Ot M54.16 RADICULOPATHY, LUMBAR REGION 11/08/2016 CAROL ANN HAYES MD Ot D64.9 ANEMIA, UNSPECIFIED 11/08/2016 CAROL ANN HAYES MD Ot Z85.46 PERSONAL HISTORY OF MALIGNANT NEOPLASM O 11/08/2016 CAROL ANN HAYES MD Ot Z85.51 PERSONAL HISTORY OF MALIGNANT NEOPLASM O 11/08/2016 CAROL ANN HAYES MD, Ot D64.9 ANEMIA, UNSPECIFIED 11/08/2016 CAROL ANN HYAES MD Ot Z85.46 PERSONAL HISTORY OF MALIGNANT NEOPLASM O 11/08/2016 CAROL ANN HAYES MD Ot Z85.51 PERSONAL HISTORY OF MALIGNANT NEOPLASM O 11/21/2016 Ot 188.9 MALIG IRVIN BLADDER NOS 12/11/2016 Ot 188.9 MALIG IRVIN BLADDER NOS 12/26/2016 CAROL ANN HAYES MD Ot D64.9 ANEMIA, UNSPECIFIED 12/26/2016 CAROL ANN HAYES MD Ot Z85.46 PERSONAL HISTORY OF MALIGNANT NEOPLASM O 12/26/2016 CAROL ANN HAYES MD Ot Z85.51 PERSONAL HISTORY OF MALIGNANT NEOPLASM O 01/09/2017 Ot 188.9 MALIG IRVIN BLADDER NOS 02/05/2017 CAROL ANN HAYES MD Ot D64.9 ANEMIA, UNSPECIFIED 02/05/2017 CAROL ANN HAYES MD Ot Z85.46 PERSONAL HISTORY OF MALIGNANT NEOPLASM O 02/05/2017 CAROL ANN HAYES MD Ot Z85.51 PERSONAL HISTORY OF MALIGNANT NEOPLASM O 04/02/2017 Ot 188.9 MALIG IRVIN BLADDER NOS 04/02/2017 ABIGAIL CORREIA MD Ot 724.2 LUMBAGO 04/02/2017 ABIGAIL CORREIA MD Ot 729.2 NEURALGIA/NEURITIS NOS 04/02/2017 ABIGAIL CORREIA MD Ot V72.84 EXAM PRE-OPERATIVE NOS 04/02/2017 BLAYNE PANDEY MD Ot M47.816 SPONDYLOSIS W/O MYELOPATHY OR RADICULOPA 04/02/2017 KATHERIN GASPAR, BLAYNE Carrillo Ot M51.36 OTHER INTERVERTEBRAL DISC DEGENERATION, 04/02/2017 BLAYNE PANDEY MD Ot Z98.1 ARTHRODESIS STATUS 04/02/2017 NATA GASPAR, AMBERLY A Ot D72.829 ELEVATED WHITE BLOOD CELL COUNT, UNSPECI 04/02/2017 AMBERLY PEACE MD A Ot Z79.2 RN TRANSITIONAL CARE (CURRENT) USE OF ANTIBIOTICS 04/02/2017 AMBERLY PEACE MD A Ot D72.818 OTHER DECREASED WHITE BLOOD CELL COUNT 04/02/2017 AMBERLY PEACE MD A Ot Z79.2 RN TRANSITIONAL CARE (CURRENT) USE OF ANTIBIOTICS 04/02/2017 AMBERLY PEACE MD A Ot D72.818 OTHER DECREASED WHITE BLOOD CELL COUNT 04/02/2017 AMBERLY PEACE MD A Ot Z79.2 RN TRANSITIONAL CARE (CURRENT) USE OF ANTIBIOTICS 04/02/2017 AMBERLY PEACE MD A Ot D72.818 OTHER DECREASED WHITE BLOOD CELL COUNT 04/02/2017 AMBERLY PEACE MD A Ot Z79.2 RN TRANSITIONAL CARE (CURRENT) USE OF ANTIBIOTICS 04/02/2017 AMBERLY PEACE MD A Ot D72.818 OTHER DECREASED WHITE BLOOD CELL COUNT 04/02/2017 AMBERLY PEACE MD A Ot Z79.2 CORRECTION (CURRENT) USE OF ANTIBIOTICS 04/02/2017 LEDA PEACE MD Ot D72.818 OTHER DECREASED WHITE BLOOD CELL COUNT 04/02/2017 LEDA PEACE MD Ot Z79.2 CORRECTION (CURRENT) USE OF ANTIBIOTICS 04/02/2017 AMBERLY PEACE MD A Ot D72.818 OTHER DECREASED WHITE BLOOD CELL COUNT 04/02/2017 AMBERLY PEACE MD A Ot Z79.2 CORRECTION (CURRENT) USE OF ANTIBIOTICS 04/02/2017 AMBERLY PEACE MD A Ot D72.818 OTHER DECREASED WHITE BLOOD CELL COUNT 04/02/2017 AMBERLY PEACE MD A Ot Z79.2 CORRECTION (CURRENT) USE OF ANTIBIOTICS 04/02/2017 AMBERLY PEACE MD A Ot D72.818 OTHER DECREASED WHITE BLOOD CELL COUNT 04/02/2017 AMBERLY PEACE MD A Ot Z79.2 RN TRANSITIONAL CARE (CURRENT) USE OF ANTIBIOTICS 04/02/2017 Ot M54.12 RADICULOPATHY, CERVICAL REGION 04/02/2017 Ot M54.14 RADICULOPATHY, THORACIC REGION 04/02/2017 Ot M54.16 RADICULOPATHY, LUMBAR REGION 04/02/2017 FREDDY GASPAR, CAROL ANN Reyes Ot D64.9 ANEMIA, UNSPECIFIED 04/02/2017 CAROL ANN HAYES MD Ot Z85.46 PERSONAL HISTORY OF MALIGNANT NEOPLASM O 04/02/2017 CAROL ANN HAYES MD Ot Z85.51 PERSONAL HISTORY OF MALIGNANT NEOPLASM O 04/07/2017 JONATHAN BUTCHER MD Ot M54.5 LOW BACK PAIN 04/07/2017 JONATHAN BUTCHER MD Ot M54.6 PAIN IN THORACIC SPINE 04/07/2017 JONATHAN BUTCHER MD Ot Z01.812 ENCOUNTER FOR PREPROCEDURAL LABORATORY E 04/08/2017 JONATHAN BUTCHER MD Ot M54.5 LOW BACK PAIN 04/08/2017 JONATHAN BUTCHER MD Ot M54.6 PAIN IN THORACIC SPINE 04/08/2017 JONATHAN BUTCHER MD Ot Z01.812 ENCOUNTER FOR PREPROCEDURAL LABORATORY E 04/13/2017 JONATHAN BUTCHER MD Ot M54.5 LOW BACK PAIN 04/13/2017 JONATHAN BUTCHER MD Ot M54.6 PAIN IN THORACIC SPINE 04/13/2017 JONATHAN BUTCHER MD Ot Z01.812 ENCOUNTER FOR PREPROCEDURAL LABORATORY E 04/16/2017 JONATHAN BUTCHER MD Ot M96.0 PSEUDARTHROSIS AFTER FUSION OR ARTHRODES 04/17/2017 JONATHAN BUTCHER MD, Ot I10 ESSENTIAL (PRIMARY) HYPERTENSION 04/17/2017 JONATHAN BUTCHER MD Ot M96.0 PSEUDARTHROSIS AFTER FUSION OR ARTHRODES 04/17/2017 JONATHAN BUTCHER MD Ot 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 04/17/2017 JONATHAN BUTCHER MD Ot T84.216A BREAKDOWN (MECHANICAL) OF INT FIX OF [place] 04/17/2017 JONATHAN BUTCHER MD, Ot I10 ESSENTIAL (PRIMARY) HYPERTENSION 04/17/2017 JONATHAN BUTCHER MD Ot M96.0 PSEUDARTHROSIS AFTER FUSION OR ARTHRODES 04/17/2017 JONATHAN BUTCHER MD Ot 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 04/17/2017 IPSEN MD, JONATHAN J Ot T84.216A BREAKDOWN (MECHANICAL) OF INT FIX OF [place] 04/17/2017 JONATHAN BUTCHER MD Ot E78.5 HYPERLIPIDEMIA, UNSPECIFIED 04/17/2017 JONATHAN BUTCHER MD Ot E87.1 HYPO-OSMOLALITY AND HYPONATREMIA 04/17/2017 JONATHAN BUTCHER MD Ot F11.20 OPIOID DEPENDENCE, UNCOMPLICATED 04/17/2017 JONATHAN BUTCHER MD Ot F17.220 NICOTINE DEPENDENCE, CHEWING TOBACCO, UN 04/17/2017 JONATHAN BUTCHER MD Ot I10 ESSENTIAL (PRIMARY) HYPERTENSION 04/17/2017 JONATHAN BUTCHER MD Ot M96.0 PSEUDARTHROSIS AFTER FUSION OR ARTHRODES 04/17/2017 JONATHAN BUTCHER MD, Ot 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 04/17/2017 JONATHAN BUTCHER MD, Ot T84.216A BREAKDOWN (MECHANICAL) OF INT FIX OF [place] 04/17/2017 JONATHAN BUTCHER MD Ot Z23 ENCOUNTER FOR IMMUNIZATION 07/03/2017 Ot 188.9 MALIG IRVIN BLADDER NOS 08/07/2018 ABIGAIL CORREIA MD Ot V72.84 EXAM PRE-OPERATIVE NOS 08/07/2018 BLAYNE PANDEY MD Ot M47.816 SPONDYLOSIS W/O MYELOPATHY OR RADICULOPA 08/07/2018 BLAYNE PANDEY MD Ot M51.36 OTHER INTERVERTEBRAL DISC DEGENERATION, 08/07/2018 BLAYNE PANDEY MD Ot Z98.1 ARTHRODESIS STATUS 08/07/2018 AMBERLY PEACE MD Ot D72.829 ELEVATED WHITE BLOOD CELL COUNT, UNSPECI 08/07/2018 AMBERLY PEACE MD Ot Z79.2 CORRECTION (CURRENT) USE OF ANTIBIOTICS 08/07/2018 AMBERLY PEACE MD Ot D72.818 OTHER DECREASED WHITE BLOOD CELL COUNT 08/07/2018 AMBERLY PEACE MD Ot Z79.2 RN TRANSITIONAL CARE (CURRENT) USE OF ANTIBIOTICS 08/07/2018 AMBERLY PEACE MD Ot D72.818 OTHER DECREASED WHITE BLOOD CELL COUNT 08/07/2018 AMBERLY PEACE MD Ot Z79.2 RN TRANSITIONAL CARE (CURRENT) USE OF ANTIBIOTICS 08/07/2018 AMBERLY PEACE MD Ot D72.818 OTHER DECREASED WHITE BLOOD CELL COUNT 08/07/2018 AMBERLY PEACE MD Ot Z79.2 RN TRANSITIONAL CARE (CURRENT) USE OF ANTIBIOTICS 08/07/2018 AMBERLY PEACE MD A Ot D72.818 OTHER DECREASED WHITE BLOOD CELL COUNT 08/07/2018 AMBERLY PEACE MD A Ot Z79.2 RN TRANSITIONAL CARE (CURRENT) USE OF ANTIBIOTICS 08/07/2018 LEDA PEACE MD Ot D72.818 OTHER DECREASED WHITE BLOOD CELL COUNT 08/07/2018 LEDA PEACE MD Ot Z79.2 CORRECTION (CURRENT) USE OF ANTIBIOTICS 08/07/2018 AMBERLY PEACE MD A Ot D72.818 OTHER DECREASED WHITE BLOOD CELL COUNT 08/07/2018 AMBERLY PEACE MD A Ot Z79.2 RN TRANSITIONAL CARE (CURRENT) USE OF ANTIBIOTICS 08/07/2018 AMBERLY PEACE MD Ot D72.818 OTHER DECREASED WHITE BLOOD CELL COUNT 08/07/2018 AMBERLY PEACE MD Ot Z79.2 CORRECTION (CURRENT) USE OF ANTIBIOTICS 08/07/2018 AMBERLY PEACE MD Ot D72.818 OTHER DECREASED WHITE BLOOD CELL COUNT 08/07/2018 AMBERLY PEACE MD A Ot Z79.2 RN TRANSITIONAL CARE (CURRENT) USE OF ANTIBIOTICS 08/07/2018 Ot M54.12 RADICULOPATHY, CERVICAL REGION 08/07/2018 Ot M54.14 RADICULOPATHY, THORACIC REGION 08/07/2018 Ot M54.16 RADICULOPATHY, LUMBAR REGION 08/07/2018 FREDDY GASPAR, CAROL ANN Reyes Ot D64.9 ANEMIA, UNSPECIFIED 08/07/2018 CAROL ANN HAYES MD Ot Z85.46 PERSONAL HISTORY OF MALIGNANT NEOPLASM O 08/07/2018 CAROL ANN HAYES MD Ot Z85.51 PERSONAL HISTORY OF MALIGNANT NEOPLASM O 08/07/2018 BREN GASPAR, ABIGAIL Carrillo Ot V72.84 EXAM PRE-OPERATIVE NOS 08/07/2018 KATHERIN GASPAR, BLAYNE Carrillo Ot M47.816 SPONDYLOSIS W/O MYELOPATHY OR RADICULOPA 08/07/2018 BLAYNE PANDEY MD Ot M51.36 OTHER INTERVERTEBRAL DISC DEGENERATION, 08/07/2018 BLAYNE PANDEY MD Ot Z98.1 ARTHRODESIS STATUS 08/07/2018 AMBERLY PEACE MD A Ot D72.829 ELEVATED WHITE BLOOD CELL COUNT, UNSPECI 08/07/2018 CHELO PEACE MDE A Ot Z79.2 CORRECTION (CURRENT) USE OF ANTIBIOTICS 08/07/2018 NATA GASPAR, AMBERLY A Ot D72.818 OTHER DECREASED WHITE BLOOD CELL COUNT 08/07/2018 AMBERLY PEACE MD A Ot Z79.2 CORRECTION (CURRENT) USE OF ANTIBIOTICS 08/07/2018 NATA GASPAR, AMBERLY A Ot D72.818 OTHER DECREASED WHITE BLOOD CELL COUNT 08/07/2018 AMBERLY PEACE MD A Ot Z79.2 CORRECTION (CURRENT) USE OF ANTIBIOTICS 08/07/2018 NATA GASPAR, AMBERLY A Ot D72.818 OTHER DECREASED WHITE BLOOD CELL COUNT 08/07/2018 NATA GASPAR, AMBERLY A Ot Z79.2 RN TRANSITIONAL CARE (CURRENT) USE OF ANTIBIOTICS 08/07/2018 AMBERLY PEACE MD A Ot D72.818 OTHER DECREASED WHITE BLOOD CELL COUNT 08/07/2018 AMBERLY PEACE MD A Ot Z79.2 CORRECTION (CURRENT) USE OF ANTIBIOTICS 08/07/2018 LEDA PEACE MD Ot D72.818 OTHER DECREASED WHITE BLOOD CELL COUNT 08/07/2018 LEDA PEACE MD N Ot Z79.2 CORRECTION (CURRENT) USE OF ANTIBIOTICS 08/07/2018 AMBERLY PEACE MD A Ot D72.818 OTHER DECREASED WHITE BLOOD CELL COUNT 08/07/2018 AMBERLY PEACE MD A Ot Z79.2 RN TRANSITIONAL CARE (CURRENT) USE OF ANTIBIOTICS 08/07/2018 NATA GASPAR, AMBERLY A Ot D72.818 OTHER DECREASED WHITE BLOOD CELL COUNT 08/07/2018 AMBERLY PEACE MD A Ot Z79.2 RN TRANSITIONAL CARE (CURRENT) USE OF ANTIBIOTICS 08/07/2018 AMBERLY PEACE MD A Ot D72.818 OTHER DECREASED WHITE BLOOD CELL COUNT 08/07/2018 NATA GASPAR, AMBERLY A Ot Z79.2 CORRECTION (CURRENT) USE OF ANTIBIOTICS 08/07/2018 Ot M54.12 RADICULOPATHY, CERVICAL REGION 08/07/2018 Ot M54.14 RADICULOPATHY, THORACIC REGION 08/07/2018 Ot M54.16 RADICULOPATHY, LUMBAR REGION 08/07/2018 FREDDY GASPAR, CAROL ANN Reyes Ot D64.9 ANEMIA, UNSPECIFIED 08/07/2018 CAROL ANN HAYES MD Ot Z85.46 PERSONAL HISTORY OF MALIGNANT NEOPLASM O 08/07/2018 FREDDY GASPAR, CAROL ANN Reyes Ot Z85.51 PERSONAL HISTORY OF MALIGNANT NEOPLASM O Procedures Code Description Performed By Performed On [id number] FUSION 2-7 T JT W AUTOL SUB, POST APPR P 09/16/2016 [id number] FUSION T-LUM JT W AUTOL SUB, POST APPR P 09/16/2016 [id number] FUSION 2-4 L JT W AUTOL SUB, POST APPR P 09/16/2016 [id number] FUSION LUMSAC JT W AUTOL SUB, POST APPR 09/16/2016 [id number] FUSION LUMSAC JT W INTBD FUS DEV, ANT AP 09/16/2016 [id number] FUSION 2-7 T JT W AUTOL SUB, POST APPR P 04/14/2017 [id number] FUSION T-LUM JT W AUTOL SUB, POST APPR P 04/14/2017 [id number] REMOVAL OF INT FIX FROM THOR JT, OPEN AP 04/14/2017 [id number] FUSION 2-4 L JT W AUTOL SUB, POST APPR P 04/14/2017 [id number] REMOVAL OF INT FIX FROM LUMSAC JT, OPEN 04/14/2017 Results Test Result Range Complete blood count (CBC) with automated white blood cell (WBC) differential - 09/02/16 09:40 Blood leukocytes automated count (number/volume) 4.9 10*3/uL 4.3-11.0 Blood erythrocytes automated count (number/volume) 3.89 10*6/uL 4.35-5.85 Venous blood hemoglobin measurement (mass/volume) 12.9 g/dL 13.3-17.7 Blood hematocrit (volume fraction) 37 % 40-54 Automated erythrocyte mean corpuscular volume 94 [foz_us] 80-99 Automated erythrocyte mean corpuscular hemoglobin (mass per erythrocyte) 33 pg 25-34 Automated erythrocyte mean corpuscular hemoglobin concentration measurement ( mass/volume) 35 g/dL 32-36 Automated erythrocyte distribution width ratio 12.2 % 10.0-14.5 Automated blood platelet count (count/volume) 264 10*3/uL 130-400 Automated blood platelet mean volume measurement 8.0 [foz_us] 7.4-10.4 Automated blood neutrophils/100 leukocytes 74 % 42-75 Automated blood lymphocytes/100 leukocytes 15 % 12-44 Blood monocytes/100 leukocytes 8 % 0-12 Automated blood eosinophils/100 leukocytes 3 % 0-10 Automated blood basophils/100 leukocytes 0 % 0-10 Blood neutrophils automated count (number/volume) 3.6 10*3 1.8-7.8 Blood lymphocytes automated count (number/volume) 0.7 10*3 1.0-4.0 Blood monocytes automated count (number/volume) 0.4 10*3 0.0-1.0 Automated eosinophil count 0.1 10*3/uL 0.0-0.3 Automated blood basophil count (count/volume) 0.0 10*3/uL 0.0-0.1 Whole blood basic metabolic panel - 09/02/16 09:40 Serum or plasma sodium measurement (moles/volume) 129 mmol/L 135-145 Serum or plasma potassium measurement (moles/volume) 4.3 mmol/L 3.6-5.0 Serum or plasma chloride measurement (moles/volume) 98 mmol/L 98-107 Carbon dioxide 21 mmol/L 21-32 Serum or plasma anion gap determination (moles/volume) 10 mmol/L 5-14 Serum or plasma urea nitrogen measurement (mass/volume) 13 mg/dL 7-18 Serum or plasma creatinine measurement (mass/volume) 0.92 mg/dL 0.60-1.30 Serum or plasma urea nitrogen/creatinine mass ratio 14 NRG Serum or plasma creatinine measurement with calculation of estimated glomerular filtration rate > NRG Serum or plasma glucose measurement (mass/volume) 106 mg/dL 70-105 Serum or plasma calcium measurement (mass/volume) 9.5 mg/dL 8.5-10.1 Blood type T Indirect antibody screen panel - 09/02/16 09:40 ABO+Rh group BP NRG Blood group antibody screen NEGATIVE NRG Methicillin resistant Staphylococcus aureus (MRSA) screening culture - 09:40 Methicillin resistant Staphylococcus aureus (MRSA) screening culture NEG NRG RED CELLS LEUKO REDUCED AS1 - 09/16/16 06:23 RED CELLS LEUKO REDUCED AS1 PRSMD TRFSD 09/16/16 1314 NRG Blood type T Indirect antibody screen panel - 09/16/16 06:23 ABO+Rh group BP NRG Transfusion band number [id number] NRG Blood group antibody screen NEGATIVE NRG Whole blood hemoglobin and hematocrit panel - 09/16/16 13:15 Venous blood hemoglobin measurement (mass/volume) 9.5 g/dL 13.3-17.7 Blood hematocrit (volume fraction) 29 % 40-54 Complete blood count (CBC) with automated white blood cell (WBC) differential - 09/16/16 21:07 Blood leukocytes automated count (number/volume) 11.8 10*3/uL 4.3-11.0 Blood erythrocytes automated count (number/volume) 3.17 10*6/uL 4.35-5.85 Venous blood hemoglobin measurement (mass/volume) 10.1 g/dL 13.3-17.7 Blood hematocrit (volume fraction) 31 % 40-54 Automated erythrocyte mean corpuscular volume 96 [foz_us] 80-99 Automated erythrocyte mean corpuscular hemoglobin (mass per erythrocyte) 32 pg 25-34 Automated erythrocyte mean corpuscular hemoglobin concentration measurement ( mass/volume) 33 g/dL 32-36 Automated erythrocyte distribution width ratio 14.6 % 10.0-14.5 Automated blood platelet count (count/volume) 200 10*3/uL 130-400 Automated blood platelet mean volume measurement 8.3 [foz_us] 7.4-10.4 Automated blood neutrophils/100 leukocytes 89 % 42-75 Automated blood lymphocytes/100 leukocytes 3 % 12-44 Blood monocytes/100 leukocytes 8 % 0-12 Automated blood eosinophils/100 leukocytes 0 % 0-10 Automated blood basophils/100 leukocytes 0 % 0-10 Blood neutrophils automated count (number/volume) 10.6 10*3 1.8-7.8 Blood lymphocytes automated count (number/volume) 0.4 10*3 1.0-4.0 Blood monocytes automated count (number/volume) 0.9 10*3 0.0-1.0 Automated eosinophil count 0.0 10*3/uL 0.0-0.3 Automated blood basophil count (count/volume) 0.0 10*3/uL 0.0-0.1 Blood lactic acid measurement (moles/volume) - 09/16/16 21:07 Blood lactic acid measurement (moles/volume) 3.62 mmol/L 0.50-2.00 Comprehensive metabolic panel - 09/16/16 21:07 Serum or plasma sodium measurement (moles/volume) 132 mmol/L 135-145 Serum or plasma potassium measurement (moles/volume) 5.0 mmol/L 3.6-5.0 Serum or plasma chloride measurement (moles/volume) 105 mmol/L 98-107 Carbon dioxide 14 mmol/L 21-32 Serum or plasma anion gap determination (moles/volume) 13 mmol/L 5-14 Serum or plasma urea nitrogen measurement (mass/volume) 17 mg/dL 7-18 Serum or plasma creatinine measurement (mass/volume) 1.35 mg/dL 0.60-1.30 Serum or plasma urea nitrogen/creatinine mass ratio 13 NRG Serum or plasma creatinine measurement with calculation of estimated glomerular filtration rate 53 NRG Serum or plasma glucose measurement (mass/volume) 196 mg/dL 70-105 Serum or plasma calcium measurement (mass/volume) 7.8 mg/dL 8.5-10.1 Serum or plasma total bilirubin measurement (mass/volume) 0.6 mg/dL 0.1-1.0 Serum or plasma alkaline phosphatase measurement (enzymatic activity/volume) 49 U/L 40-136 Serum or plasma aspartate aminotransferase measurement (enzymatic activity/ volume) 41 U/L 5-34 Serum or plasma alanine aminotransferase measurement (enzymatic activity/volume ) 28 U/L 0-55 Serum or plasma protein measurement (mass/volume) 5.0 g/dL 6.4-8.2 Serum or plasma albumin measurement (mass/volume) 3.3 g/dL 3.2-4.5 Magnesium - 09/16/16 21:07 Magnesium 1.6 mg/dL 1.8-2.4 Blood manual differential performed detection - 09/16/16 21:07 Blood monocytes/100 leukocytes 3 % NRG Manual blood segmented neutrophils/100 leukocytes 89 % NRG Blood band neutrophils/100 leukocytes 3 % NRG Manual blood lymphocytes/100 leukocytes 5 % NRG Manual eosinophils/100 leukocytes in nose 0 % NRG Manual blood basophils/100 leukocytes 0 % NRG Blood poikilocytosis detection by light microscopy SLIGHT NRG Serum or plasma troponin i.cardiac measurement (mass/volume) - 09/16/16 21:07 Serum or plasma troponin i.cardiac measurement (mass/volume) < ng/ mL <0.30 Serum or plasma lithium measurement (moles/volume) - 09/16/16 21:07 BNP level 46.1 pg/mL <100.0 IONIZED CALCIUM (SEND OFF) - 09/16/16 21:07 Blood ionized calcium measurement (mass/volume) 1.12 % 1.16-1.32 Venous blood ionized calcium measurement adjusted to pH 7.4 (moles/volume) 1.04 % 1.16-1.32 pH measurement 7.27 NRG Serum or plasma lactate measurement (moles/volume) - 09/16/16 23:10 Serum or plasma lactate measurement (moles/volume) 5.00 mmol/L 0.50-2.00 Capillary blood glucose measurement by glucometer (mass/volume) - 09/17/16 00: 13 Capillary blood glucose measurement by glucometer (mass/volume) 180 mg/dL 70-110 Venous blood hemoglobin measurement (mass/volume) - 09/17/16 02:00 Venous blood hemoglobin measurement (mass/volume) 9.1 g/dL 13.3-17.7 Blood lactic acid measurement (moles/volume) - 09/17/16 02:00 Blood lactic acid measurement (moles/volume) 3.29 mmol/L 0.50-2.00 Whole blood basic metabolic panel - 09/17/16 02:00 Serum or plasma sodium measurement (moles/volume) 132 mmol/L 135-145 Serum or plasma potassium measurement (moles/volume) 4.4 mmol/L 3.6-5.0 Serum or plasma chloride measurement (moles/volume) 103 mmol/L 98-107 Carbon dioxide 16 mmol/L 21-32 Serum or plasma anion gap determination (moles/volume) 13 mmol/L 5-14 Serum or plasma urea nitrogen measurement (mass/volume) 16 mg/dL 7-18 Serum or plasma creatinine measurement (mass/volume) 1.05 mg/dL 0.60-1.30 Serum or plasma urea nitrogen/creatinine mass ratio 15 NRG Serum or plasma creatinine measurement with calculation of estimated glomerular filtration rate > NRG Serum or plasma glucose measurement (mass/volume) 169 mg/dL 70-105 Serum or plasma calcium measurement (mass/volume) 7.9 mg/dL 8.5-10.1 Magnesium - 09/17/16 02:00 Magnesium 2.4 mg/dL 1.8-2.4 IONIZED CALCIUM (SEND OFF) - 09/17/16 02:00 Blood ionized calcium measurement (mass/volume) 1.20 % 1.16-1.32 Venous blood ionized calcium measurement adjusted to pH 7.4 (moles/volume) 1.12 % 1.16-1.32 pH measurement 7.28 NR Automated blood complete blood count (hemogram) panel - 09/17/16 04:25 Blood leukocytes automated count (number/volume) 12.5 10*3/uL 4.3-11.0 Blood erythrocytes automated count (number/volume) 2.89 10*6/uL 4.35-5.85 Venous blood hemoglobin measurement (mass/volume) 9.1 g/dL 13.3-17.7 Blood hematocrit (volume fraction) 27 % 40-54 Automated erythrocyte mean corpuscular volume 95 [foz_us] 80-99 Automated erythrocyte mean corpuscular hemoglobin (mass per erythrocyte) 32 pg 25-34 Automated erythrocyte mean corpuscular hemoglobin concentration measurement ( mass/volume) 33 g/dL 32-36 Automated erythrocyte distribution width ratio 14.9 % 10.0-14.5 Automated blood platelet count (count/volume) 212 10*3/uL 130-400 Automated blood platelet mean volume measurement 8.3 [foz_us] 7.4-10.4 Comprehensive metabolic panel - 09/17/16 04:25 Serum or plasma sodium measurement (moles/volume) 131 mmol/L 135-145 Serum or plasma potassium measurement (moles/volume) 4.4 mmol/L 3.6-5.0 Serum or plasma chloride measurement (moles/volume) 103 mmol/L 98-107 Carbon dioxide 17 mmol/L 21-32 Serum or plasma anion gap determination (moles/volume) 11 mmol/L 5-14 Serum or plasma urea nitrogen measurement (mass/volume) 16 mg/dL 7-18 Serum or plasma creatinine measurement (mass/volume) 1.10 mg/dL 0.60-1.30 Serum or plasma urea nitrogen/creatinine mass ratio 15 NRG Serum or plasma creatinine measurement with calculation of estimated glomerular filtration rate > NRG Serum or plasma glucose measurement (mass/volume) 118 mg/dL 70-105 Serum or plasma calcium measurement (mass/volume) 7.9 mg/dL 8.5-10.1 Serum or plasma total bilirubin measurement (mass/volume) 0.5 mg/dL 0.1-1.0 Serum or plasma alkaline phosphatase measurement (enzymatic activity/volume) 46 U/L 40-136 Serum or plasma aspartate aminotransferase measurement (enzymatic activity/ volume) 48 U/L 5-34 Serum or plasma alanine aminotransferase measurement (enzymatic activity/volume ) 26 U/L 0-55 Serum or plasma protein measurement (mass/volume) 5.1 g/dL 6.4-8.2 Serum or plasma albumin measurement (mass/volume) 3.4 g/dL 3.2-4.5 Blood lactic acid measurement (moles/volume) - 09/17/16 04:25 Blood lactic acid measurement (moles/volume) 2.11 mmol/L 0.50-2.00 Capillary blood glucose measurement by glucometer (mass/volume) - 09/17/16 04: 50 Capillary blood glucose measurement by glucometer (mass/volume) 106 mg/dL 70-110 Capillary blood glucose measurement by glucometer (mass/volume) - 09/17/16 09: 22 Capillary blood glucose measurement by glucometer (mass/volume) 112 mg/dL 70-110 Capillary blood glucose measurement by glucometer (mass/volume) - 09/17/16 12: 39 Capillary blood glucose measurement by glucometer (mass/volume) 122 mg/dL 70-110 Capillary blood glucose measurement by glucometer (mass/volume) - 09/17/16 17: 10 Capillary blood glucose measurement by glucometer (mass/volume) 94 mg/dL 70-110 Capillary blood glucose measurement by glucometer (mass/volume) - 09/17/16 20: 02 Capillary blood glucose measurement by glucometer (mass/volume) 99 mg/dL 70-110 Capillary blood glucose measurement by glucometer (mass/volume) - 09/18/16 00: 07 Capillary blood glucose measurement by glucometer (mass/volume) 102 mg/dL 70-110 Automated blood complete blood count (hemogram) panel - 09/18/16 03:25 Blood leukocytes automated count (number/volume) 10.8 10*3/uL 4.3-11.0 Blood erythrocytes automated count (number/volume) 2.45 10*6/uL 4.35-5.85 Venous blood hemoglobin measurement (mass/volume) 7.9 g/dL 13.3-17.7 Blood hematocrit (volume fraction) 24 % 40-54 Automated erythrocyte mean corpuscular volume 96 [foz_us] 80-99 Automated erythrocyte mean corpuscular hemoglobin (mass per erythrocyte) 32 pg 25-34 Automated erythrocyte mean corpuscular hemoglobin concentration measurement ( mass/volume) 34 g/dL 32-36 Automated erythrocyte distribution width ratio 14.4 % 10.0-14.5 Automated blood platelet count (count/volume) 202 10*3/uL 130-400 Automated blood platelet mean volume measurement 8.6 [foz_us] 7.4-10.4 Comprehensive metabolic panel - 09/18/16 03:25 Serum or plasma sodium measurement (moles/volume) 131 mmol/L 135-145 Serum or plasma potassium measurement (moles/volume) 4.3 mmol/L 3.6-5.0 Serum or plasma chloride measurement (moles/volume) 103 mmol/L 98-107 Carbon dioxide 21 mmol/L 21-32 Serum or plasma anion gap determination (moles/volume) 7 mmol/L 5-14 Serum or plasma urea nitrogen measurement (mass/volume) 12 mg/dL 7-18 Serum or plasma creatinine measurement (mass/volume) 0.85 mg/dL 0.60-1.30 Serum or plasma urea nitrogen/creatinine mass ratio 14 NRG Serum or plasma creatinine measurement with calculation of estimated glomerular filtration rate > NRG Serum or plasma glucose measurement (mass/volume) 101 mg/dL 70-105 Serum or plasma calcium measurement (mass/volume) 8.1 mg/dL 8.5-10.1 Serum or plasma total bilirubin measurement (mass/volume) 0.3 mg/dL 0.1-1.0 Serum or plasma alkaline phosphatase measurement (enzymatic activity/volume) 51 U/L 40-136 Serum or plasma aspartate aminotransferase measurement (enzymatic activity/ volume) 59 U/L 5-34 Serum or plasma alanine aminotransferase measurement (enzymatic activity/volume ) 21 U/L 0-55 Serum or plasma protein measurement (mass/volume) 5.1 g/dL 6.4-8.2 Serum or plasma albumin measurement (mass/volume) 3.1 g/dL 3.2-4.5 Magnesium - 09/18/16 03:25 Magnesium 2.1 mg/dL 1.8-2.4 Capillary blood glucose measurement by glucometer (mass/volume) - 09/18/16 03: 56 Capillary blood glucose measurement by glucometer (mass/volume) 106 mg/dL 70-110 Blood lactic acid measurement (moles/volume) - 09/18/16 08:52 Blood lactic acid measurement (moles/volume) 1.12 mmol/L 0.50-2.00 Complete blood count (CBC) with automated white blood cell (WBC) differential - 09/19/16 06:09 Blood leukocytes automated count (number/volume) 11.1 10*3/uL 4.3-11.0 Blood erythrocytes automated count (number/volume) 2.90 10*6/uL 4.35-5.85 Venous blood hemoglobin measurement (mass/volume) 9.1 g/dL 13.3-17.7 Blood hematocrit (volume fraction) 27 % 40-54 Automated erythrocyte mean corpuscular volume 94 [foz_us] 80-99 Automated erythrocyte mean corpuscular hemoglobin (mass per erythrocyte) 31 pg 25-34 Automated erythrocyte mean corpuscular hemoglobin concentration measurement ( mass/volume) 34 g/dL 32-36 Automated erythrocyte distribution width ratio 14.8 % 10.0-14.5 Automated blood platelet count (count/volume) 220 10*3/uL 130-400 Automated blood platelet mean volume measurement 8.3 [foz_us] 7.4-10.4 Automated blood neutrophils/100 leukocytes 87 % 42-75 Automated blood lymphocytes/100 leukocytes 5 % 12-44 Blood monocytes/100 leukocytes 8 % 0-12 Automated blood eosinophils/100 leukocytes 0 % 0-10 Automated blood basophils/100 leukocytes 0 % 0-10 Blood neutrophils automated count (number/volume) 9.7 10*3 1.8-7.8 Blood lymphocytes automated count (number/volume) 0.5 10*3 1.0-4.0 Blood monocytes automated count (number/volume) 0.9 10*3 0.0-1.0 Automated eosinophil count 0.0 10*3/uL 0.0-0.3 Automated blood basophil count (count/volume) 0.0 10*3/uL 0.0-0.1 Whole blood basic metabolic panel - 09/19/16 06:09 Serum or plasma sodium measurement (moles/volume) 131 mmol/L 135-145 Serum or plasma potassium measurement (moles/volume) 3.7 mmol/L 3.6-5.0 Serum or plasma chloride measurement (moles/volume) 99 mmol/L 98-107 Carbon dioxide 21 mmol/L 21-32 Serum or plasma anion gap determination (moles/volume) 11 mmol/L 5-14 Serum or plasma urea nitrogen measurement (mass/volume) 8 mg/dL 7-18 Serum or plasma creatinine measurement (mass/volume) 0.72 mg/dL 0.60-1.30 Serum or plasma urea nitrogen/creatinine mass ratio 11 NRG Serum or plasma creatinine measurement with calculation of estimated glomerular filtration rate > NRG Serum or plasma glucose measurement (mass/volume) 102 mg/dL 70-105 Serum or plasma calcium measurement (mass/volume) 8.8 mg/dL 8.5-10.1 Complete blood count (CBC) with automated white blood cell (WBC) differential - 09/20/16 06:06 Blood leukocytes automated count (number/volume) 8.6 10*3/uL 4.3-11.0 Blood erythrocytes automated count (number/volume) 2.92 10*6/uL 4.35-5.85 Venous blood hemoglobin measurement (mass/volume) 9.3 g/dL 13.3-17.7 Blood hematocrit (volume fraction) 28 % 40-54 Automated erythrocyte mean corpuscular volume 95 [foz_us] 80-99 Automated erythrocyte mean corpuscular hemoglobin (mass per erythrocyte) 32 pg 25-34 Automated erythrocyte mean corpuscular hemoglobin concentration measurement ( mass/volume) 34 g/dL 32-36 Automated erythrocyte distribution width ratio 14.5 % 10.0-14.5 Automated blood platelet count (count/volume) 280 10*3/uL 130-400 Automated blood platelet mean volume measurement 8.3 [foz_us] 7.4-10.4 Automated blood neutrophils/100 leukocytes 78 % 42-75 Automated blood lymphocytes/100 leukocytes 8 % 12-44 Blood monocytes/100 leukocytes 11 % 0-12 Automated blood eosinophils/100 leukocytes 3 % 0-10 Automated blood basophils/100 leukocytes 0 % 0-10 Blood neutrophils automated count (number/volume) 6.7 10*3 1.8-7.8 Blood lymphocytes automated count (number/volume) 0.7 10*3 1.0-4.0 Blood monocytes automated count (number/volume) 0.9 10*3 0.0-1.0 Automated eosinophil count 0.3 10*3/uL 0.0-0.3 Automated blood basophil count (count/volume) 0.0 10*3/uL 0.0-0.1 Comprehensive metabolic panel - 09/20/16 06:06 Serum or plasma sodium measurement (moles/volume) 134 mmol/L 135-145 Serum or plasma potassium measurement (moles/volume) 3.5 mmol/L 3.6-5.0 Serum or plasma chloride measurement (moles/volume) 99 mmol/L 98-107 Carbon dioxide 26 mmol/L 21-32 Serum or plasma anion gap determination (moles/volume) 9 mmol/L 5-14 Serum or plasma urea nitrogen measurement (mass/volume) 6 mg/dL 7-18 Serum or plasma creatinine measurement (mass/volume) 0.69 mg/dL 0.60-1.30 Serum or plasma urea nitrogen/creatinine mass ratio 9 NRG Serum or plasma creatinine measurement with calculation of estimated glomerular filtration rate > NRG Serum or plasma glucose measurement (mass/volume) 99 mg/dL 70-105 Serum or plasma calcium measurement (mass/volume) 9.0 mg/dL 8.5-10.1 Serum or plasma total bilirubin measurement (mass/volume) 0.6 mg/dL 0.1-1.0 Serum or plasma alkaline phosphatase measurement (enzymatic activity/volume) 54 U/L 40-136 Serum or plasma aspartate aminotransferase measurement (enzymatic activity/ volume) 54 U/L 5-34 Serum or plasma alanine aminotransferase measurement (enzymatic activity/volume ) 25 U/L 0-55 Serum or plasma protein measurement (mass/volume) 6.1 g/dL 6.4-8.2 Serum or plasma albumin measurement (mass/volume) 3.6 g/dL 3.2-4.5 Magnesium - 09/20/16 06:06 Magnesium 2.3 mg/dL 1.8-2.4 Serum iron and total iron binding capacity panel - 11/07/16 11:18 Serum or plasma iron measurement (mass/volume) 65 % 40- 180 Total iron binding capacity and transferrin saturation measurement 18 % 15-50 Iron binding capacity [mass/volume] in serum or plasma 366 % 280-380 UIBC (unsaturated iron binding capacity) 301 % NRG Serum or plasma ferritin measurement (mass/volume) 134.0 % 25.0-300.0 Cyanocobalamin measurement - 11/07/16 11:18 Vitamin B12 274 pg/mL 200-1000 Stool occult blood screen - 11/11/16 10:30 Stool gastrointestinal hemoglobin detection POSITIVE NEGATIVE Complete blood count (CBC) with automated white blood cell (WBC) differential - 04/07/17 10:05 Blood leukocytes automated count (number/volume) 5.0 10*3/uL 4.3-11.0 Blood erythrocytes automated count (number/volume) 4.17 10*6/uL 4.35-5.85 Venous blood hemoglobin measurement (mass/volume) 13.7 g/dL 13.3-17.7 Blood hematocrit (volume fraction) 40 % 40-54 Automated erythrocyte mean corpuscular volume 95 [foz_us] 80-99 Automated erythrocyte mean corpuscular hemoglobin (mass per erythrocyte) 33 pg 25-34 Automated erythrocyte mean corpuscular hemoglobin concentration measurement ( mass/volume) 35 g/dL 32-36 Automated erythrocyte distribution width ratio 12.5 % 10.0-14.5 Automated blood platelet count (count/volume) 313 10*3/uL 130-400 Automated blood platelet mean volume measurement 7.8 [foz_us] 7.4-10.4 Automated blood neutrophils/100 leukocytes 74 % 42-75 Automated blood lymphocytes/100 leukocytes 14 % 12-44 Blood monocytes/100 leukocytes 9 % 0-12 Automated blood eosinophils/100 leukocytes 2 % 0-10 Automated blood basophils/100 leukocytes 0 % 0-10 Blood neutrophils automated count (number/volume) 3.7 10*3 1.8-7.8 Blood lymphocytes automated count (number/volume) 0.7 10*3 1.0-4.0 Blood monocytes automated count (number/volume) 0.5 10*3 0.0-1.0 Automated eosinophil count 0.1 10*3/uL 0.0-0.3 Automated blood basophil count (count/volume) 0.0 10*3/uL 0.0-0.1 Whole blood basic metabolic panel - 04/07/17 10:05 Serum or plasma sodium measurement (moles/volume) 129 mmol/L 135-145 Serum or plasma potassium measurement (moles/volume) 4.6 mmol/L 3.6-5.0 Serum or plasma chloride measurement (moles/volume) 96 mmol/L 98-107 Carbon dioxide 21 mmol/L 21-32 Serum or plasma anion gap determination (moles/volume) 12 mmol/L 5-14 Serum or plasma urea nitrogen measurement (mass/volume) 13 mg/dL 7-18 Serum or plasma creatinine measurement (mass/volume) 0.78 mg/dL 0.60-1.30 Serum or plasma urea nitrogen/creatinine mass ratio 17 NRG Serum or plasma creatinine measurement with calculation of estimated glomerular filtration rate > NRG Serum or plasma glucose measurement (mass/volume) 113 mg/dL 70-105 Serum or plasma calcium measurement (mass/volume) 10.0 mg/dL 8.5-10.1 Blood type T Indirect antibody screen panel - 04/07/17 10:05 ABO+Rh group BP NRG Blood group antibody screen NEGATIVE NRG Methicillin resistant Staphylococcus aureus (MRSA) screening culture - 10:05 Methicillin resistant Staphylococcus aureus (MRSA) screening culture NEG NRG Blood type T Indirect antibody screen panel - 04/14/17 10:55 ABO+Rh group BP NRG Transfusion band number [id number] NRG Blood group antibody screen NEGATIVE NRG Bacteria identification in isolate by anaerobe culture - 04/14/17 13:45 Bacteria identification in isolate by anaerobe culture NG NR Gram stain microscopy - 04/14/17 13:45 GRAM STAIN RESULT NO BACTERIA OBSERVED NRG Bacteria identification in wound by culture - 04/14/17 13:45 Bacteria identification in wound by culture NG NRG Automated blood complete blood count (hemogram) panel - 04/15/17 06:46 Blood leukocytes automated count (number/volume) 10.7 10*3/uL 4.3-11.0 Blood erythrocytes automated count (number/volume) 3.08 10*6/uL 4.35-5.85 Venous blood hemoglobin measurement (mass/volume) 10.1 g/dL 13.3-17.7 Blood hematocrit (volume fraction) 30 % 40-54 Automated erythrocyte mean corpuscular volume 96 [foz_us] 80-99 Automated erythrocyte mean corpuscular hemoglobin (mass per erythrocyte) 33 pg 25-34 Automated erythrocyte mean corpuscular hemoglobin concentration measurement ( mass/volume) 34 g/dL 32-36 Automated erythrocyte distribution width ratio 11.9 % 10.0-14.5 Automated blood platelet count (count/volume) 256 10*3/uL 130-400 Automated blood platelet mean volume measurement 7.7 [foz_us] 7.4-10.4 Comprehensive metabolic panel - 04/15/17 06:46 Serum or plasma sodium measurement (moles/volume) 129 mmol/L 135-145 Serum or plasma potassium measurement (moles/volume) 4.4 mmol/L 3.6-5.0 Serum or plasma chloride measurement (moles/volume) 99 mmol/L 98-107 Carbon dioxide 21 mmol/L 21-32 Serum or plasma anion gap determination (moles/volume) 9 mmol/L 5-14 Serum or plasma urea nitrogen measurement (mass/volume) 12 mg/dL 7-18 Serum or plasma creatinine measurement (mass/volume) 0.73 mg/dL 0.60-1.30 Serum or plasma urea nitrogen/creatinine mass ratio 16 NRG Serum or plasma creatinine measurement with calculation of estimated glomerular filtration rate > NRG Serum or plasma glucose measurement (mass/volume) 127 mg/dL 70-105 Serum or plasma calcium measurement (mass/volume) 8.8 mg/dL 8.5-10.1 Serum or plasma total bilirubin measurement (mass/volume) 0.4 mg/dL 0.1-1.0 Serum or plasma alkaline phosphatase measurement (enzymatic activity/volume) 68 U/L 40-136 Serum or plasma aspartate aminotransferase measurement (enzymatic activity/ volume) 28 U/L 5-34 Serum or plasma alanine aminotransferase measurement (enzymatic activity/volume ) 20 U/L 0-55 Serum or plasma protein measurement (mass/volume) 6.0 g/dL 6.4-8.2 Serum or plasma albumin measurement (mass/volume) 3.7 g/dL 3.2-4.5 Whole blood basic metabolic panel - 04/16/17 05:25 Serum or plasma sodium measurement (moles/volume) 128 mmol/L 135-145 Serum or plasma potassium measurement (moles/volume) 3.8 mmol/L 3.6-5.0 Serum or plasma chloride measurement (moles/volume) 98 mmol/L 98-107 Carbon dioxide 21 mmol/L 21-32 Serum or plasma anion gap determination (moles/volume) 9 mmol/L 5-14 Serum or plasma urea nitrogen measurement (mass/volume) 10 mg/dL 7-18 Serum or plasma creatinine measurement (mass/volume) 0.65 mg/dL 0.60-1.30 Serum or plasma urea nitrogen/creatinine mass ratio 15 NRG Serum or plasma creatinine measurement with calculation of estimated glomerular filtration rate > NRG Serum or plasma glucose measurement (mass/volume) 112 mg/dL 70-105 Serum or plasma calcium measurement (mass/volume) 8.7 mg/dL 8.5-10.1 Complete urinalysis with reflex to culture - 08/07/18 00:15 Urine color determination YELLOW NRG Urine clarity determination CLEAR NRG Urine pH measurement by test strip 6 5-9 Specific gravity of urine by test strip 1.020 1.016- 1.022 Urine protein assay by test strip, semi-quantitative NEGATIVE NEGATIVE Urine glucose detection by automated test strip NEGATIVE NEGATIVE Erythrocytes detection in urine sediment by light microscopy 2+ NEGATIVE Urine ketones detection by automated test strip NEGATIVE NEGATIVE Urine nitrite detection by test strip NEGATIVE NEGATIVE Urine total bilirubin detection by test strip NEGATIVE NEGATIVE Urine urobilinogen measurement by automated test strip (mass/volume) NORMAL NORMAL Urine leukocyte esterase detection by dipstick NEGATIVE NEGATIVE Automated urine sediment erythrocyte count by microscopy (number/high power field) [HPF] NRG Automated urine sediment leukocyte count by microscopy (number/high power field ) NONE NRG Bacteria detection in urine sediment by light microscopy FEW NRG Squamous epithelial cells detection in urine sediment by light microscopy 0-2 NRG Crystals detection in urine sediment by light microscopy NONE NRG Casts detection in urine sediment by light microscopy NONE NRG Mucus detection in urine sediment by light microscopy NEGATIVE NRG Complete urinalysis with reflex to culture NO NRG Complete blood count (CBC) with automated white blood cell (WBC) differential - 08/07/18 00:30 Blood leukocytes automated count (number/volume) 7.7 10*3/uL 4.3-11.0 Blood erythrocytes automated count (number/volume) 3.97 10*6/uL 4.35-5.85 Venous blood hemoglobin measurement (mass/volume) 12.9 g/dL 13.3-17.7 Blood hematocrit (volume fraction) 38 % 40-54 Automated erythrocyte mean corpuscular volume 95 [foz_us] 80-99 Automated erythrocyte mean corpuscular hemoglobin (mass per erythrocyte) 33 pg 25-34 Automated erythrocyte mean corpuscular hemoglobin concentration measurement ( mass/volume) 34 g/dL 32-36 Automated erythrocyte distribution width ratio 11.6 % 10.0-14.5 Automated blood platelet count (count/volume) 289 10*3/uL 130-400 Automated blood platelet mean volume measurement 7.6 [foz_us] 7.4-10.4 Automated blood neutrophils/100 leukocytes 87 % 42-75 Automated blood lymphocytes/100 leukocytes 7 % 12-44 Blood monocytes/100 leukocytes 4 % 0-12 Automated blood eosinophils/100 leukocytes 2 % 0-10 Automated blood basophils/100 leukocytes 0 % 0-10 Blood neutrophils automated count (number/volume) 6.7 10*3 1.8-7.8 Blood lymphocytes automated count (number/volume) 0.5 10*3 1.0-4.0 Blood monocytes automated count (number/volume) 0.3 10*3 0.0-1.0 Automated eosinophil count 0.1 10*3/uL 0.0-0.3 Automated blood basophil count (count/volume) 0.0 10*3/uL 0.0-0.1 Comprehensive metabolic panel - 08/07/18 00:30 Serum or plasma sodium measurement (moles/volume) 130 mmol/L 135-145 Serum or plasma potassium measurement (moles/volume) 4.1 mmol/L 3.6-5.0 Serum or plasma chloride measurement (moles/volume) 96 mmol/L 98-107 Carbon dioxide 19 mmol/L 21-32 Serum or plasma anion gap determination (moles/volume) 15 mmol/L 5-14 Serum or plasma urea nitrogen measurement (mass/volume) 9 mg/dL 7-18 Serum or plasma creatinine measurement (mass/volume) 0.76 mg/dL 0.60-1.30 Serum or plasma urea nitrogen/creatinine mass ratio 12 NRG Serum or plasma creatinine measurement with calculation of estimated glomerular filtration rate > NRG Serum or plasma glucose measurement (mass/volume) 104 mg/dL 70-105 Serum or plasma calcium measurement (mass/volume) 9.8 mg/dL 8.5-10.1 Serum or plasma total bilirubin measurement (mass/volume) 0.3 mg/dL 0.1-1.0 Serum or plasma alkaline phosphatase measurement (enzymatic activity/volume) 82 U/L 40-136 Serum or plasma aspartate aminotransferase measurement (enzymatic activity/ volume) 28 U/L 5-34 Serum or plasma alanine aminotransferase measurement (enzymatic activity/volume ) 26 U/L 0-55 Serum or plasma protein measurement (mass/volume) 7.6 g/dL 6.4-8.2 Serum or plasma albumin measurement (mass/volume) 4.9 g/dL 3.2-4.5 Serum or plasma amylase measurement (enzymatic activity/volume) - 08/07/18 00: 30 Serum or plasma amylase measurement (enzymatic activity/volume) 34 U /L 25-125 Lipase - 08/07/18 00:30 Lipase 43 U/L 8-78 Blood manual differential performed detection - 08/07/18 00:30 Blood monocytes/100 leukocytes 8 % NRG Manual blood segmented neutrophils/100 leukocytes 81 % NRG Manual blood lymphocytes/100 leukocytes 9 % NRG Manual eosinophils/100 leukocytes in nose 2 % NRG Encounters ACCT No. Visit Date/Time Discharge Status Pt. Type Provider Facility Loc./Unit Complaint [id number] 08/06/2018 22:45:00 08/07/2018 02:17:00 DIS Emergency KAYLA BAUER DO [facility] ER ABD PAIN,TROUBLE URINATING [id number] 04/14/2017 10:44:00 04/17/2017 16:20:00 DIS Inpatient JONATHAN BUTCHER MD [facility] 4TH NON UNION POSTERIOR THORACO-LUMBAR FUSION [id number] 04/07/2017 09:40:00 04/07/2017 10:08:00 DIS Outpatient JONATHAN BUTCHER MD [facility] PREOP REVISION POSTERIOR THORACO-LUMBAR FUSION [id number] 02/06/2017 00:15:00 02/06/2017 23:59:59 CLS Preadmit CAROL ANN HAYES MD [facility] LAB D64.9 [id number] 11/07/2016 10:59:00 02/05/2017 00:01:00 DIS Outpatient CAROL ANN HAYES MD [facility] LAB D64.9 [id number] 09/16/2016 05:52:00 09/20/2016 09:50:00 DIS Inpatient JONATHAN BUTCHER MD [facility] 4TH LUMBAR STENOSIS [id number] 09/02/2016 09:05:00 09/02/2016 09:45:00 DIS Outpatient JONATHAN BUTCHER MD [facility] PREOP LUMBAR STENOSIS [id number] 01/01/2016 11:38:00 01/01/2016 23:59:59 CLS Outpatient AMBERLY PEACE MD [facility] LAB IV ABX THERAPY, LEUKOCYTOSIS [id number] 12/25/2015 10:56:00 12/25/2015 23:59:59 CLS Outpatient AMBERLY PEACE MD [facility] [id number] 12/18/2015 11:58:00 12/18/2015 23:59:59 CLS Outpatient AMBERLY PEACE MD [facility] IV ABX THERAPY, LEUKECTYOSIS [id number] 12/11/2015 14:37:00 12/11/2015 23:59:59 CLS Outpatient LEDA PEACE MD [facility] IV ABX THERAPY; LEUKACYTOSIS [id number] 12/04/2015 10:00:00 12/04/2015 23:59:59 CLS Outpatient AMBERLY PEACE MD [facility] Z79.2,D72.818 [id number] 11/27/2015 14:48:00 11/27/2015 23:59:59 CLS Outpatient AMBERLY PEACE MD [facility] IV ABX THERAPY, LEUKOCYTOSIS [id number] 11/20/2015 14:45:00 11/20/2015 23:59:59 CLS Outpatient AMBERLY PEACE MD [facility] IV ABX THERAPY, LEUKOCYTOSIS [id number] 11/13/2015 14:00:00 11/13/2015 23:59:59 CLS Outpatient AMBERLY PEACE MD [facility] IV ABX THERAPY, [id number] 11/07/2015 11:17:00 11/07/2015 23:59:59 CLS Outpatient AMBERLY PEACE MD [facility] IV ABX TX, LEUKOCYTOSIS [id number] 10/29/2015 10:06:00 10/29/2015 15:32:00 DIS Emergency LANA AJ APRN [facility] ER BACK PAIN [id number] 10/20/2015 08:18:00 10/20/2015 09:28:00 DIS Outpatient BLAYNE PANDEY MD [facility] CARD SACROCOCCYGEAL DISORDER [id number] 10/17/2015 09:40:00 10/17/2015 23:59:59 CLS Outpatient BLAYNE PANDEY MD [facility] RAD LOW BACK PAIN [id number] 11/25/2013 11:23:00 11/25/2013 23:59:59 CLS Outpatient ABIGAIL CORREIA MD [facility] CARD PRE OP [id number] 01/04/2013 15:24:00 01/04/2013 23:59:59 CLS Outpatient ABIGAIL CORREIA MD [facility] RAD LOW BACK PAIN, RADICULOPATHY [id number] 08/15/2016 12:17:00 Document Registration [id number] 09/16/2014 12:28:00 Document Registration [id number] 09/16/2014 12:28:00 Document Registration [id number] 09/16/2014 12:28:00 Document Registration [id number] 09/16/2014 12:28:00 Document Registration [id number] 04/15/2012 08:48:00 Document Registration [id number] 04/19/2010 12:10:00 Document Registration [id number] 04/03/2010 16:20:00 Document Registration [id number] 03/28/2010 08:03:00 Document Registration [id number] 10/31/2009 13:56:00 Document Registration [id number] 09/01/2009 13:12:00 Document Registration
== END 2018-08-07 02:17 | disposition home or self-care (01) ==
LOC: EDUNIT# 22:44 → ER 22:45
DX: K40.90 Unilateral inguinal hernia, without obstruction or gangrene, not specified as recurrent (principal); R31.21 Asymptomatic microscopic hematuria; E78.00 Pure hypercholesterolemia, unspecified; I10 Essential (primary) hypertension; Z87.19 Personal history of other diseases of the digestive system; Z85.46 Personal history of malignant neoplasm of prostate; Z96.642 Presence of left artificial hip joint; Z98.890 Other specified postprocedural states; Z90.79 Acquired absence of other genital organ(s)
CPT/HCPCS: 36415; 74018; 74176; 80053; 81000; 82150; 83690; 85007; 85027; 96361; 96374; 96375

== ENCOUNTER 2018-09-07 14:25 | Outpatient (CLI) | payer OTHER ==
[~2018-09-07] VITALS: Ht 170.2 cm; Wt 73.9 kg
[2018-09-07 14:43] VITALS: BP 176/98
== END 2018-09-07 14:45 | disposition home or self-care (01) ==
LOC: PREOP 14:25
PROVIDERS: ATTEND Surgery
DX: Z01.818 Encounter for other preprocedural examination (principal)
CPT/HCPCS: 87081

== ENCOUNTER 2018-09-18 09:01 | Day surgery (SDC) | payer MEDICARE, OTHER ==
[~2018-09-18] VITALS: Ht 170.2 cm; Wt 73.9 kg
[2018-09-18] MEDS ORDERED: ceFAZolin 2 GM IV Premixed 50 ML IV ONE (09:15)
[2018-09-18] MEDS: LACTATED RINGERS 1,000 ML IV PRN ×2 (09:26→12:32)
[2018-09-18 09:31] VITALS: BP 164/91
--- NOTE | 2018-09-18 09:53 | Progress Note-Pre Operative ---
Pre-Operative Progress Note H&P Reviewed The H&P was reviewed, patient examined and no changes noted. Date Seen by Provider: Sep 18, 2018 Time Seen by Provider: 09:50 Date H&P Reviewed: Sep 18, 2018 Time H&P Reviewed: 09:40 Pre-Operative Diagnosis: Symptomatic Right inguinal hernia NIESHA MARLOW APRN Sep 18, 2018 09:53
[2018-09-18] MEDS ORDERED: OXYC-465 PO (09:55)
--- NOTE | 2018-09-18 09:56 | Discharge Inst-Surgical ---
D/C Lap Instructions-KIDO New, Converted, or Re-Newed RX: RX on Chart Follow Up Appt in 2 weeks Activity as tolerated No driving for 24 hours [address] while on pain medications Incentive Spirometry use every 2 hours while awake Regular Diet Symptoms to Report: Fever over 101 degree F, Nausea/Vomiting Infection Signs and Symptoms to report: Increased redness, Foul odor of wound, Increased drainage Bathing instructions: May shower Operative Area Clean/Dry; Keep incision clean/dry If any problems/questions: Contact your physician or go to Emergency Room NIESHA MARLOW APRN Sep 18, 2018 09:56
[2018-09-18] MEDS ORDERED: ACETAMINOPHEN 325 MG TABLET PO PRN (10:00)
[2018-09-18] MEDS ORDERED: oxyCODONE/APAP 5/325MG (PERCOCET 5) TABLET PO PRN (10:00)
[2018-09-18] MEDS ORDERED: morphine INJ 10 MG/ML 1ML (SYR OR VIAL) IVP PRN (10:00)
[2018-09-18] MEDS ORDERED: ONDANSETRON 4 MG/2 ML (SDV) Z0FRAN IVP PRN ×2 (10:00→13:00)
[2018-09-18] MEDS ORDERED: fentaNYL INJECTION 100 MCG/2 ML AMP ONE ×2 (10:31→12:12)
[2018-09-18] MEDS ORDERED: MIDAZOLAM 2 MG/2 ML (VERSED) VIAL ONE (10:31)
[2018-09-18] MEDS ORDERED: proPOfol 200 MG/20 ML (DIPRIVAN) VIAL IV ONE (10:32)
[2018-09-18] MEDS ORDERED: LIDOCAINE PF 2% 5 ML (XYLOCAINE) VIAL ONE (10:32)
[2018-09-18] MEDS ORDERED: GLYCOPYRROLATE 0.2 MG/ML (ROBINUL) 2 ML VIAL ONE (10:32)
[2018-09-18] MEDS ORDERED: ROCURONIUM 10 MG/ML 5 ML SYRINGE IV ONE ×2 (10:32→12:40)
[2018-09-18] MEDS ORDERED: DEXAMETHASONE 10 MG/ML (DECADRON) 1 ML VIAL ONE (10:32)
[2018-09-18] MEDS ORDERED: NEOSTIGMINE 1 MG/ML 5 ML SYRINGE ONE (10:32)
[2018-09-18] MEDS ORDERED: ONDANSETRON 4 MG/2 ML (SDV) Z0FRAN ONE (10:32)
[2018-09-18] MEDS ORDERED: SEVOFLURANE (ULTANE) 15 ML INHAL SOLN ONE ×4 (10:32→12:12)
[2018-09-18] MEDS ORDERED: BUP/EPI 0.5% 1:200,000 (SENSORCAINE) 30 ML VIAL ONE (10:34)
[2018-09-18] MEDS ORDERED: SUGAMMADEX 500 MG/5 ML VIAL (BRIDION) IV ONE (12:40)
[2018-09-18] MEDS ORDERED: HYDROmorphone 2 MG/ML VIAL (DILAUDID) IV ONE (13:00)
[2018-09-18] MEDS ORDERED: HYDROmorphone 2 MG/ML VIAL (DILAUDID) ONE (13:06)
--- NOTE | 2018-09-18 13:39 | Progress Note-Post Operative ---
Post-Operative Progess Note Surgeon (s)/Professor Of Rhetoric (s) Surgeon JOSUE WILLINGHAM MD Professor Of Rhetoric: pat jung CIVIL DESIGN TECHNICIAN Pre-Operative Diagnosis Symptomatic Right inguinal hernia Post-Operative Diagnosis symptomatic right incarcerated sliding inguinal hernia Procedure & Operative Findings Date of Procedure 09/18/18 Procedure Performed/Findings laparoscopic right inguinal hernia repair with mesh Anesthesia Type get Estimated Blood Loss Estimated blood loss (mL): minimal Specimens/Packing Specimens Removed none JOSUE WILLINGHAM MD Sep 18, 2018 13:39
[2018-09-18 14:05] VITALS: BP 156/67
[2018-09-18 14:35] VITALS: BP 138/75
--- NOTE | 2018-09-18 15:02 | Anesthesia-General Post-Op ---
General Patient Condition Mental Status/LOC: Same as Preop Cardiovascular: Satisfactory Nausea/Vomiting: Absent Respiratory: Satisfactory Pain: Controlled Complications: Absent Post Op Complications Complications None Follow Up Care/Instructions Patient Instructions None needed. Anesthesia/Patient Condition Patient Condition Patient is doing well, no complaints, stable vital signs, no apparent adverse anesthesia problems. No complications reported per nursing. KEN MENJIVAR CRNA Sep 18, 2018 15:02
[2018-09-18 15:05] VITALS: BP 146/72
--- NOTE | 2018-09-19 00:21 | OPERATIVE REPORT ---
DATE OF SERVICE: 09/18/2018 ATTENDING PRIMARY CARE PHYSICIAN: Dr. Hui. PREOPERATIVE DIAGNOSIS: Symptomatic right inguinal hernia. POSTOPERATIVE DIAGNOSIS: Incarcerated right indirect sliding inguinal hernia with small bowel within the hernia sac. PROCEDURE: Laparoscopic right inguinal hernia repair with mesh. SURGEON: Josue Kay MD RESEARCH PHYSICIST: Aren Hartley APRN. ANESTHESIA: General endotracheal. ESTIMATED BLOOD LOSS: Minimal. FINDINGS: Large right indirect inguinal hernia with small bowel encompassing a portion of the tariq of the hernia sac going into the scrotum consistent with a sliding inguinal hernia. DISPOSITION: The patient tolerated the procedure well. INDICATIONS: The patient is a 67-year-old male who has developed pain and a bulge in the inguinal region for approximately 5 years ago. He reports in the past year this has become much more significant and will feel the pain as well as noticed increased size of the bulge. He states he is otherwise eating well and having normal bowel movements. Upon examination in the office, he was found to have a right inguinal hernia, which was reducible; however, tender to palpation. DESCRIPTION OF PROCEDURE: The patient was brought to the operating room, laid supine on the table. After adequate IV pain and sedating medications and general endotracheal intubation, the abdomen was prepped and draped in standard surgical fashion. A 0.5% Marcaine with epinephrine was then used to anesthetize the supraumbilical rim and a transverse skin incision made using a 15 blade. A towel clamp was used to retract the abdominal wall anteriorly and Veress needle inserted with a low opening pressure of 0 mmHg and the abdomen was insufflated to 15 mmHg pressure. The Veress needle removed and a 10 mm Xcel trocar placed followed by a 10 mm 45-degree angle laparoscope visualizing the peritoneal cavity. A 4-quadrant abdominal x-ray was performed. There was a right indirect inguinal hernia that was incarcerated and small bowel within the hernia sac and also encompassing the tariq of the sac consistent with a sliding inguinal hernia. There was no left inguinal hernia component. There were no inflammatory changes. The remainder of the small bowel, omentum appeared normal. Under direct visualization, we then proceeded to place bilateral 5 mm ports after the skin and peritoneal lining were anesthetized using 0.5% Marcaine with epinephrine and transverse skin incision made using a 15 blade. The patient was then placed in Trendelenburg position. The peritoneal lining was then opened starting laterally towards the conjoint tendon and inguinal ligament using the Sonicision. We then proceeded medially until we reached Raghav's ligament and proceeded with a gentle dissection of the hernia sac as well as the attached small bowel to the hernia sac using blunt dissection as well as the Sonicision with visualization of good hemostasis. The cord and its contents identified and spared throughout the process. A medium size 3DMax polypropylene mesh was then placed through the 10 mm port and tacked to Raghav's ligament medially and the conjoint tendon laterally. The entire peritoneal lining was then placed over the mesh and a few absorbable tacks placed to hold this in place with visualization of good hemostasis. The 10 mm port site fascia and peritoneum were then closed under direct visualization using a Marc-Blanca device and 0 Vicryl suture. The abdomen was desufflated and the remaining ports removed. All skin incisions were closed using 4-0 Monocryl running subcuticular sutures. Wounds were then cleaned and covered with Dermabond. The patient tolerated the procedure well. We will start IV and oral pain medication as well as a clear liquid diet. Once he is tolerating clears, has good pain control with oral pain medications, ambulating well, we will discharge him home. We will also recommend scrotal support at all times for the next two weeks as well as no lifting or exertion above 15 pounds for the next two weeks as well. Job ID: [id number] DocumentID: [id number] Dictated Date: 09/18/2018 13:45:20 Sidewalk Inspector Date: 09/19/2018 00:20:35 Dictated By: JOSUE KAY MD
== END 2018-09-18 15:05 | disposition home or self-care (01) ==
LOC: SDC 09:01
PROVIDERS: ATTEND Surgery
DX: K40.30 Unilateral inguinal hernia, with obstruction, without gangrene, not specified as recurrent (principal); I10 Essential (primary) hypertension; E78.00 Pure hypercholesterolemia, unspecified; M19.91 Primary osteoarthritis, unspecified site; F17.220 Nicotine dependence, chewing tobacco, uncomplicated; Z85.46 Personal history of malignant neoplasm of prostate; Z79.899 Other long term (current) drug therapy

== ENCOUNTER → 2019-01-01 | Outpatient (CLI) | payer OTHER ==
--- NOTE | 2019-01-01 17:15 | Diagnostic Imaging Report ---
INDICATION: Status post recent fall several days ago directly onto hip, pain. TECHNIQUE: Two views of the left hip 11:07 a.m. 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 Alignment appears to be anatomic at the prosthesis. There is no acute fracture or dislocation. Rather prominent bulky calcifications have developed superior to the greater trochanter from prior study. There is partial visualization of known lumbosacral spinal fixation hardware. Extensive surgical clips within the pelvis near the level of the prostate bed. Suggestion of some edema superior to the prosthesis. IMPRESSION: 1. Negative for acute fracture or dislocation at the left hip demonstrating bipolar hip arthroplasty. Dictated by: Dictated on workstation # [id number]
== END ==
LOC: RAD 10:46
PROVIDERS: ATTEND Family Medicine
DX: M25.552 Pain in left hip (principal); Z96.642 Presence of left artificial hip joint; W19.XXXA Unspecified fall, initial encounter
CPT/HCPCS: 73502

== ENCOUNTER → 2020-07-25 | Outpatient (CLI) | payer OTHER ==
[~2020-07-25] MED LIST changes: +ACHYD1T PO; +AMLO-250 PO; +AMLO-251 PO; -AMLO10TA7 PO; -AMLO5TAB9 PO; -HYDR-3820 PO; -LISI-552 PO; +LISI20TA26 PO; -OXYC-465; -OXYC-465 PO; +OXYC-556; +OXYC-556 PO; -TRAM50TA2 PO; +TRM50T PO
--- NOTE | 2020-07-25 11:36 | Diagnostic Imaging Report ---
INDICATION: Osteoporosis. COMPARISON: None FINDINGS: There are no prior studies available for comparison. The bone mineral density of the right hip and the left radius was measured. The total T score for the right hip is -1.5. This value does indicate osteopenia. However it should be noted that the T score for the femoral neck is -2.5 and for Champion's triangle -3.5. These values do fall within the range of osteoporosis. The total T score for the left radius is -3.6. This value also indicates osteoporosis. AP Spine L1-L4: [BMD (g/cm2): na] [T-Score: na] [Z-Score: na] [BMD Previous: na] [BMD % Change: na] LT Hip Neck: [BMD (g/cm2): na] [T-Score: na] [Z-Score: na] LT Hip Total: [BMD (g/cm2):na] [T-Score:na] [Z-Score: na] [BMD Previous: na] [BMD % Change: na] RT Hip Neck: [BMD (g/cm2):0.751] [T-Score:-2.5] [Z-Score:-1.1] RT Hip Total: [BMD (g/cm2):0.885] [T-score:-1.5] [Z-Score:-0.7] [BMD Previous:na] [BMD % Change:na] *Indicates significant change from prior examination based on 95% confidence level. World Health Organization criteria for BMD interpretation classify patients as Normal (T-score at or above -1.0), Osteopenic (T-score between -1.0 and -2.5) or Osteoporotic (T-score at or below -2.5). LIMITATIONS AND MODIFICATION: None. FRACTURE RISK (FRAX SCORE): The ten year probability of (%): Major Osteoporotic Fracture: [11.3] Hip Fracture: [3.9] IMPRESSION: 1. While the total T score for the right hip indicates osteopenia, the T scores for Champion's triangle and the femoral neck fall within the range of osteoporosis. 2. 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 3. See below National Osteoporosis Foundation guidelines on when to potentially initiate pharmacologic therapy. Based on the National Osteoporosis Foundation Guidelines, pharmacologic treatment should be initiated in any of the following, unless clinical conditions suggest otherwise: * Any patient with prior fragility fracture of the hip or vertebrae. A spine fracture indicates 5X risk for subsequent spine fracture and 2X risk for subsequent hip fracture. * Osteoporosis (T-score <-2.5). * Postmenopausal women and men age 50 and older with low bone mass/osteopenia (T-score between -1.0 and -2.5) by DXA and 10-year major osteoporotic fracture greater than 20% or a 10-year probability of hip fracture greater than 3%. These fracture risks are supplied above in the FRAX score, if applicable. * Clinician judgement and/or patient preferences may indicate treatment for people with 10-year fracture probabilities above or below these levels. Dictated by: Dictated on workstation # [id number]
== END ==
LOC: RAD 10:00
PROVIDERS: ATTEND Orthopaedic Surgery
DX: Z13.820 Encounter for screening for osteoporosis (principal); M81.0 Age-related osteoporosis without current pathological fracture
CPT/HCPCS: 77080